=== PATIENT | female | born 1995 | race Caucasian/White ===

== ENCOUNTER 2023-01-09 13:52 | Outpatient (OUT) | payer OTHER, SELFPAY ==
--- NOTE | 2023-01-09 | ECG_ITS ---
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
--- NOTE | 2023-01-09 14:56 | CA_ITS ---
Patient: JUSTIN COON Exam Date: 01/09/2023 : 1995 Gender:F Ordering : DR Dai Judd M.D. Admission #: [id number] Family : Order #: [id number] CLICK HERE TO VIEW EXAM ECHOCARDIOGRAM REPORT PROCEDURE: CA ECHO DOPPLER COMPLETE INDICATIONS: SYNCOPE AND COLLAPSE COMPARISON: None. DESCRIPTION: COMPLETE ECHOCARDIOGRAM Real-time transthoracic echocardiography with 2D, M-mode, spectral and color flow Doppler performed. QUALITY: Technical quality was good. LEFT VENTRICLE: Normal chamber size. Normal left ventricular wall thickness. Normal systolic function. LV EF: Normal left ventricular ejection fraction, (>55%). DIASTOLIC: Normal diastolic function. ATRIAL SEPTUM: Visually appears intact. LEFT ATRIUM: Normal chamber size. RIGHT ATRIUM: Normal chamber size. RIGHT VENTRICLE: Normal chamber size. Normal right ventricular systolic function. TRICUSPID VALVE: Normal mobility and thickness. No stenosis with trivial regurgitation. No evidence of pulmonary hypertension. RVSP 16 mmHg MITRAL VALVE: Normal mobility and thickness. No evidence of mitral valve stenosis. There is no mitral annular calcification. No mitral regurgitation. AORTIC VALVE: Normal trileaflet appearance. No visible sclerosis. Normal leaflet mobility. No evidence of aortic valve stenosis. No aortic regurgitation. AORTIC ROOT: Normal diameter and appearance. PULMONIC VALVE: Normal thickness and mobility. No stenosis. Mild regurgitation. PERICARDIUM: No evidence of pericardial effusion. IVC: Collapses with inspirations. IVC is normal in size. PLEURA: CONCLUSION: 1. Normal ventricular size and systolic function. LVEF is 55 to 60%. 2. Normal diastolic function. 3. No significant valvular dysfunction. 4. Normal right-sided pressures. 5. No pericardial effusion. Adult Echocardiography Procedure Report Left Ventricle LVEDD (3.7 - 5.6 cm): 4.24 cm LVESD (2.2 - 4.0 cm): 3.07 cm LVIVS thickness (0.6 - 1.2 cm): 0.56 cm LVPW thickness (0.5 - 1.0 cm): 0.79 cm e': 0.18 m/s E - e': 6.06 LVOT Max Gradient: 6.28 mm[Hg] LVOT Area (cm2): 1.25 m/s Peak Velocity (LVOT): 1.25 m/s Mean Velocity (LVOT): 0.92 m/s LVOT Diameter 2.12 cm Left Atrium LA Volume Index (2D A2C): 25.34 ml/m2 Left Atrium Systolic Dimension: 3.08 cm Mitral Valve MV E to A Ratio: 1.71 Mitral Valve A-Wave Peak Velocity: 0.64 m/s Mitral Valve E-Wave Peak Velocity: 1.09 m/s Right Ventricle Aorta AO Root Diam: 2.96 cm Ascending Ao Diam: 2.66 cm Aortic Valve AoV Area (Peak Duglas): 3.37 cm2, 3.37 cm2 AoV Area (VTI): 3.22 cm2, 3.22 cm2 Peak Velocity(Antegrade Flow): 1.31 m/s Peak Gradient(Antegrade Flow): 6.86 mm[Hg] Mean Velocity(Antegrade Flow): 0.96 m/s Mean Gradient(Antegrade Flow): 4.12 mm[Hg] Velocity Time Integral: 35.89 cm Tricuspid Valve Peak Velocity (Regurgitant Flow): 1.83 m/s Pulmonic Valve Mean Gradient: 2.86 mm[Hg] Mean Velocity: 0.80 m/s Peak Velocity: 1.07 m/s, 1.15 m/s Peak Gradient: 5.31 mm[Hg], 4.61 mm[Hg] Right Atrium Right Atrium Systolic Pressure: 32.78 ml, 32.78 ml Dictated by: Delvis Denton M.D. on 01/09/2023 at 19:54 Approved by: Delvis Denton M.D. on 01/09/2023 at 19:56
== END 2023-01-09 13:53 | disposition home or self-care (01) ==
LOC: CARD 13:57
PROVIDERS: PCP Family Medicine; Visit Provider Family Medicine
DX: R55 Syncope and collapse (principal)
CPT/HCPCS: 93005; 93306

== ENCOUNTER 2023-02-24 10:19 | Outpatient (OUT) | payer OTHER, SELFPAY ==
[2023-02-24 10:38] LABS: Basophils Percent Auto 0.5 % (0.2-2.0); Eosinophils Absolute Auto 0.1 10^3/uL (0.0-0.7); Eosinophils Percent Auto 1.5 % (0.9-7.0); Hematocrit 37.1 % (36.0-48.0); Immature Granulocytes Abs Auto 0.02 10^3/uL (0.00-0.03); Immature Granulocytes Pct Auto 0.3 % (0.0-0.5); Lymphocytes Absolute Auto 1.8 10^3/uL (1.2-3.8); Lymphocytes Percent Auto 30.2 % (20.5-60.0); Mean Corpuscular HGB Conc 32.3 g/dL (29.9-35.2); Mean Corpuscular Hemoglobin 28.4 pg (26.7-34.0); Mean Corpuscular Volume 87.7 fL (81.0-99.0); Mean Platelet Volume 10.8 fL (9.5-13.5); Monocytes Absolute Auto 0.5 10^3/uL (0.3-0.8); Monocytes Percent Auto 8.3 % (1.7-12.0); Neutrophils Absolute Auto 3.5 10^3/uL (1.4-6.5); Neutrophils Percent Auto 59.2 % (43.0-75.0); Platelet Count 253 10^3/uL (150-450); Red Blood Count 4.23 10^6/uL (4.20-5.40); Red Cell Distribution Width 13.3 % (11.0-15.0); White Blood Count 5.9 10^3/uL (4.0-11.0)
[2023-02-24 11:03] LABS: Percent Iron Saturation 24.8 %
[2023-02-24 11:13] LABS: Anion Gap 12.6; BUN Creatinine Ratio 16.7; Calcium 8.7 mg/dL (8.5-10.1); Carbon Dioxide 26.4 mmol/L (21.0-32.0); Chloride 105 mmol/L (98-107); Estimated GFR (African America >60 (>=60); Estimated GFR (Non-African Ame >60 (>=60); Glucose 86 mg/dL (74-106); Sodium 140 mmol/L (136-145)
== END 2023-02-24 10:20 | disposition home or self-care (01) ==
LOC: LAB 10:20
PROVIDERS: PCP Family Medicine
DX: R55 Syncope and collapse (principal)
CPT/HCPCS: 36415; 80048; 83540; 83550; 85025

== ENCOUNTER 2023-08-04 19:40 | Outpatient (REF) | payer OTHER, SELFPAY ==
--- OUTSIDE RECORDS SUMMARY | 2023-08-04 19:56 | XMS_ITS | CCD ---
Author Organization [facility] Care Team Providers Care Bingo Caller Name Role Phone DEVANTE YUAN Unavailable NOMS, UNKNOWN Unavailable Unavailable INESBAUDILIO Unavailable LEONIDAS SKINNER Unavailable KAYLIE MARSH Unavailable Alyssa Fortune Unavailable Dai Roberson Unavailable NELIA ., DR LAUREN Consulting Unavailable REQUEST, DR NONE LISTED Primary Care Unavaila ble NELIA ., DR LAUREN Attending Unavailable NELIA ., DR LAUREN Admitting Unavailable ZIEBER, DR TRINO Bonilla Consulting Unavailable NELIA ., DR LAUREN Consulting Unavailable ROBERSON, DR DAI Hernandez Primary Care Unavailable NELIA ., DR LAUREN Attending Unavailable NELIA ., DR LAUREN Admitting Unavailable NELIA ., DR LAUREN Consulting Unavailable REQUEST, NONE LISTED Primary Care Unavaila ble NELIA ., DR LAUREN Attending Unavailable NELIA ., DR LAUREN Admitting Unavailable NELIA ., DR LAUREN Consulting Unavailable ROBERSON, DR DAI Hernandez Primary Care Unavailable NELIA ., DR LAUREN Attending Unavailable NELIA ., DR LAUREN Admitting Unavailable SALMA .KAYLIE Consulting Unavailable KAROL, DR DAI Hernandez Primary Care Unavailable SALMA ., KAYLIE Attending Unavailable SALMA ., KAYLIE Admitting Unavailable NELIA ., DR LAUREN Consulting Unavailable ROBERSON, DR DAI Hernandez Primary Care Unavailable NELIA ., DR LAUREN Attending Unavailable NELIA ., DR LAUREN Admitting Unavailable NELIA ., DR LAUREN Consulting Unavailable KISHAN, DR REED Primary Care Unavailable NELIA ., DR LAUREN Attending Unavailable NELIA ., DR LAUREN Admitting Unavailable NELIA ., DR LAUREN Consulting Unavailable MISC, DR REED Primary Care Unavailable NELIA ., DR LAUREN Attending Unavailable NELIA ., DR LAUREN Admitting Unavailable NELIA ., DR LAUREN Consulting Unavailable MISC, DR REED Primary Care Unavailable NELIA ., DR LAUREN Attending Unavailable NELIA ., DR LAUREN Admitting Unavailable NELIA ., DR LAUREN Consulting Unavailable ROBERSON, DR DAI Hernandez Primary Care Unavailable NELIA ., DR LAUREN Attending Unavailable NELIA ., DR LAUREN Admitting Unavailable MICHAEL HAINES Consulting Unavailable NELIA ., DR LAUREN Procedure Practitioner Unavail able KARASIK ., DR MARSH Consulting Unavailabl e ROBERSON, DR DAI Hernandez Primary Care Unavailable NELIA ., DR LAUREN Attending Unavailable NELIA ., DR LAUREN Admitting Unavailable FIREBAUGH, DR GÉNESIS Mckeon Consulting Unavailable NELIA ., DR LAUREN Consulting Unavailable Vel, Maegan Unavailable MD Dai Roberson Primary Care Provider MALCOLM Lentz Attending Provider [phone] Dai Roberson Primary Care Unavailable Vel, Maegan Admitting Unavailable Vel, Maegan Attending Unavailable Vel, Maegan Referring Unavailable Arely Lentz Admitting Unavailable Arely Lentz Attending Unavailable Dai Roberson Primary Care Unavailable Robb Mendoza Admitting Unavailab Robb Estrada Attending Unavailab [facility] Unavailable Allergies Allergy Classification Reported Allergen(s) Allergy Type Date of Onset Reaction(s) Facility (20 sources) Penicillin; Translations: [penicillin] Drug Allergy rash [facility] Repository (14 sources) Penicillin G Drug Allergy [address] [place] [address] (1 source) Penicillin G Potassium Drug [facility] Other (2 sources) Penicillins; Translations: [Penicillins] Allergy to substance [address] [place] [address] (1 source) Penicillin Drug Allergy [address] [place] [address] Repository Medications Current Medications Medication Drug Class(es) Dates Sig (Normalized) Sig (Original) 24 hr amphetamine aspartate 5 mg / amphetamine sulfate 5 mg / dextroamphetamine saccharate 5 mg / dextroamphetamine sulfate 5 mg extended release oral capsule (10 sources) Central Nervous System Stimulant Start: 12-05-2022 take 1 capsule by mouth every twenty-four hours Adderall XR 20 MG 1 capsule in the morning Orally Once a day for 30 days Dec, Active Start: 10-03-2022 take 1 capsule by mo ut every twenty-four hours Adderall XR 20 MG 1 capsule in the morning Orally Once a day for 30 days Sep, Active busPIRone hydrochloride 10 mg oral tablet (3 sources) Start: 07-01-2022 take 1 tablet by mouth every twelve hours busPIRone HCl 10 MG 1 tablet Orally Twice a day for 30 days Jun, Active docusate sodium 100 mg oral capsule (20 sources) Start: 03-01-2021 take 1 capsule by mouth at bedtime Docusate Sodium (Dok) 100 mg Capsule Active 100 MG PO Bedtime March 01, 2021 1:00am Colace Active 21 day ethinyl estradiol 0.104523 mg/hr / etonogestrel 0.005 mg/hr vaginal system (20 sources) Progestin, Estrogen Start: 04-24-2022 NuvaRing 0.12-0.015 MG/24HR [address] for 3 weeks, remove, and replace with a new ring after 7 day break Vaginal for 28 days Apr, Active ibuprofen 800 mg oral tablet (2 sources) Nonsteroidal Anti-inflammatory Drug Start: 06-15-2023 take 800 mg by mouth every eight hours Ibuprofen Active 800 MG PO Q8H 11 10June 15, 2023 12:00am Start: 03-01-2021 take 600 mg by mouth every six hours Ibuprofen Active 600 MG PO Q6H March 01, 2021 1:00am lidocaine 0.05 mg/mg medicated patch (1 source) Antiarrhythmic, Amide Local Anesthetic Start: 06-15-2023 apply 1 dose topically once daily Lidocaine Active 1 PATCH TOPICAL Daily 09 27June 15, 2023 12:00am leave on most painful area for up to 12 hrs predniSONE 10 mg oral tablet (2 sources) Start: 10-29-2022 predniSONE 10 MG 4 tabs po daily x 2 days, 3 tabs daily x 2 days, 2 tabs daily x 2 days, 1 tab daily x 2 days Orally Once a day for 8 Oct, Active sertraline 25 mg oral tablet (20 sources) Serotonin Reuptake Inhibitor take 1 tablet by mouth every twenty-four hours Zoloft 25 MG 1 tablet Orally Once a day Active Completed/Discontinued Medications Medication Drug Class(es) Dates Sig (Normalized) Sig (Original) amoxicillin 875 mg oral tablet (4 sources) Penicillin-class Antibacterial Start: 08-01-2020 take 1 tablet by mouth every twelve hours Amoxicillin 875 MG 1 tablet Orally every 12 hrs for 7 days July, Not-Taking clarithromycin 500 mg oral tablet (4 sources) Macrolide Antimicrobial Start: 05-27-2022 take 1 tablet by mouth every twelve hours Clarithromycin 500 MG 1 tablet Orally every 12 hrs for 10 day(s) May, Not-Taking ethinyl estradiol 0.03 mg / ferrous fumarate 75 mg / norethindrone 1.5 mg oral tablet (4 sources) Estrogen take 1 tablet by mouth every twenty-four hours FE 1.5/30 1.5-30 MG-MCG 1 tablet Orally Once a day Not-Taking fluticasone propionate 0.05 mg/actuat metered dose nasal spray (4 sources) Corticosteroid Start: 05-27-2022 take 1 spray(s) nasal route once daily Fluticasone Propionate 50 MCG/ACT 1 spray in each nostril Nasally Once a day for 21 days May, Not-Taking omeprazole 20 mg delayed release oral capsule (20 sources) Proton Pump Inhibitor take 1 capsule by mouth at bedtime Omeprazole 20 MG 1 capsule Orally bedtime Not-Taking ondansetron 4 mg disintegrating oral tablet (20 sources) Serotonin-3 Receptor Antagonist take 1 tablet by mouth every six hours Ondansetron 4 MG 1 tablet on the tongue and allow to dissolve Orally 6 hours Not-Taking PNV (20 sources) PNV Not-Taking polysaccharide iron complex 391 mg oral capsule (20 sources) take 1 capsule by mouth every twenty-four hours ProFe 391.3 (180 Fe) MG 1 capsule Orally Once a day for 90 days Not-Taking (4 sources) Not-Prateek ing terconazole 8 mg/ml vaginal cream (1 source) Azole Antifungal Start: 01-05-2021 End: 02-26-2021 Terconazole Discontinued 1 APPLICATOR VAGINAL Daily at bedtime January 05, 2021 12:00am February 26, 2021 10:40pm Problems Active Problems Problem Classification Problem Date Documented Date Episodic/Chronic Allergic reactions (1 source) Allergic contact dermatitis due to plants, except food Episodic Anxiety disorders (15 sources) Anxiety; Translations: [Anxiety disorder, unspecified] Chronic Deficiency and other anemia (13 sources) Anemia; Translations: [Anemia, unspecified] Episodic Disorders usually diagnosed in infancy, childhood, or adolescence (13 sources) Adult attention deficit hyperactivity disorder ; Translations: [Other specified behavioral and emotional disorders with onset usually occurring in childhood and adolescence] Chronic E Codes: Fall (1 source) Unspecified fall, initial encounter; Translations: [Unspecified fall] 06-15-2023 Episodic Menstrual disorders (1 source) Irregular menstruation, unspecified; Translations: [IRREGULAR MENSTRUATION UNSPECIFIED] Onset: 08-29-2021 Chronic Mood disorders (13 sources) Dysthymic disorder; Translations: [Persistent depressive disorder] Chronic Other complications of (20 sources) Maternal obesity complicating , childbirth and the puerperium, antepartum; Translations: [Obesity complicating , third trimester] Chronic Other complications of (6 sources) Obesity complicating , third trimester Chronic Other complications of (1 source) Other specified related conditions, first trimester Episodic Other complications of (1 source) related conditions, unspecified, second trimester Episodic Other complications of (12 sources) Supervision of other high risk pregnancies, unspecified trimester Episodic Other complications of (6 sources) related conditions, unspecified, third trimester Episodic Other complications of (6 sources) Excessive weight gain in , third trimester Episodic Other female genital disorders (20 sources) Pain in female genitalia on intercourse; Translations: [Unspecified dyspareunia] Chronic Other female genital disorders (20 sources) Vaginal discharge; Translations: [Other specified noninflammatory disorders of vagina] Episodic Other female genital disorders (1 source) History of past delivery; Translations: [Status post vaginal delivery] 03-01-2021 Episodic Other screening for suspected conditions (not mental disorders or infectious disease) (20 sources) Encounter for screening for malignant neoplasm of cervix; Translations: [Encounter for screening for diabetes mellitus] Onset: 08-22-2021 Episodic Other upper respiratory infections (1 source) Acute pharyngitis, unspecified Episodic Otitis media and related conditions (1 source) Otitis media, unspecified, right ear Episodic Residual codes; unclassified (1 source) 12 weeks gestation of Episodic Residual codes; unclassified (1 source) 20 weeks gestation of Episodic Residual codes; unclassified (1 source) 24 weeks gestation of Episodic Residual codes; unclassified (1 source) 32 weeks gestation of Episodic Residual codes; unclassified (2 sources) 36 weeks gestation of Episodic Residual codes; unclassified (1 source) 37 weeks gestation of Episodic Residual codes; unclassified (1 source) 39 weeks gestation of Episodic Residual codes; unclassified (1 source) 34 weeks gestation of Episodic Residual codes; unclassified (1 source) 15 weeks gestation of Episodic Residual codes; unclassified (1 source) 28 weeks gestation of Episodic Residual codes; unclassified (1 source) 30 weeks gestation of Episodic Superficial injury; contusion (1 source) Contusion of right shoulder, initial encounter; Translations: [Contusion of shoulder region] 06-15-2023 Episodic Unclassified (1 source) CONTACT W/AND (SUSP) EXPOS COVID-19; Translations: [CONTACT W/AND (SUSP) EXPOS COVID-19] Onset: 03-21-2022 Past or Other Problems Problem Classification Problem Date Documented Date Episodic/Chronic Immunizations and screening for infectious disease (20 sources) Exposure to sexually transmissible disorder; Translations: [Contact with and (suspected) exposure to infections with a predominantly sexual mode of transmission] Onset: 08-22-2021 Episodic Other complications of ; puerperium affecting management of mother (1 source) Streptococcus B carrier state complicating childbirth; Translations: [STREP B SALAZAR STATE COMP CHILDBIRTH] Onset: 03-21-2022 Episodic Other complications of (5 sources) Other specified related conditions, third trimester; Translations: [OTH SPEC PREG RELATED COND 3RD TRI] Onset: 02-11-2022 Episodic Other complications of (4 sources) Decreased movements, third trimester, not applicable or unspecified; Translations: [DECR MOVEMENTS 3RD TRI NA/UNS] Onset: 03-02-2022 Episodic Other female genital disorders (6 sources) Other specified noninflammatory disorders of vagina; Translations: [OTH SPEC NONINFLAMMATORY D/O VAGINA] Onset: 09-18-2021 Episodic Other and delivery including normal (20 sources) ; Translations: [Encounter for supervision of normal , unspecified, unspecified trimester] Onset: 11-05-2021 Episodic Residual codes; unclassified (2 sources) 38 weeks gestation of ; Translations: [38 WEEKS GESTATION OF ] Onset: 03-07-2022 Episodic Residual codes; unclassified (2 sources) 40 weeks gestation of ; Translations: [40 WEEKS GESTATION OF ] Onset: 03-21-2022 Episodic Residual codes; unclassified (1 source) Type O blood, Rh negative; Translations: [TYPE O BLOOD RH NEGATIVE] Onset: 03-21-2022 Episodic Residual codes; unclassified (1 source) Unspecified blood type, Rh negative; Translations: [UNSPECIFIED BLOOD TYPE RH NEGATIVE] Onset: 02-13-2022 Episodic Syncope (3 sources) Syncope and collapse; Translations: [Syncope and collapse] Onset: 01-23-2023 Episodic Results Test Name Value Interpretation Reference Range Facility XR shoulder RT min 2V*on XR shoulder RT min 2V* [facility] [place] [address] XRay Report Signed Patient: Malini Degroot MR#: [id number] : 1995 Acct:[id number] Age/Sex: 27 / F ADM Date: 06/15/23 Loc: [facility] Room: Type: [facility] [address] Attending Dr: Arely Lentz APRN Copies to: Arely Lentz APRN Ordering Provider: Arely Lentz APRN Date of Service: 06/15/23 XR/XR shoulder RT min 2V*: RIGHT SHOULDER PAIN 3 views right shoulder plain film HISTORY: Right shoulder injury COMPARISON: None ACUTE FINDINGS: None DEGENERATIVE CHANGE: Unremarkable SOFT TISSUE FINDINGS: Unremarkable JOINT EFFUSION: None POSTOP CHANGES: None BONY MINERALIZATION: Adequate XR/XR shoulder RT min 2V* IMPRESSION: No acute findings. Impression dictated by: Edward Torres M.D.06/15/2023 1:13 PM Dictation Location: [place] [address] Transcribed By: [facility] 06/15/23 1313 Dictated By: Edward Torres DO 06/15/23 1313 Signed By: 06/15/23 1313 [facility] CA cardiac event monitoron 1 04-12-2022 CA cardiac event monitor [facility] [place] [id number] Cardiac Event Monitor Signed Patient: Malini Degroot MR#: [id number] : 1995 Acct:[id number] Age/Sex: 27 / F ADM Date: 01/23/23 Loc: Room: Type: [facility] Attending Dr: Maegan Crowder MD Copies to: Tyson Trejo MD, [facility] Maegan Crowder MD Ordering Provider: Maegan Crowder MD Date of Service: 01/23/23 CA/CA cardiac event monitor: syncope ORDERED BY: Dr. Crowder INDICATION: A 27-year-old patient with syncope. The patient was monitored between 01/23/2023 and 02/05/2023. All tracings revealed normal sinus rhythm, heart rate between 82 and 120 beats per minute. There were no cardiac arrhythmias noted. The patient's diary had symptoms of lightheadedness and dizziness, which did not correlate with significant cardiac arrhythmias. CONCLUSION: A two-week event monitor that revealed sinus rhythm mechanism throughout. No significant cardiac arrhythmias were seen, and the patient's symptoms of dizziness and lighthea dedness did not correlate with cardiac arrhythmias. Transcribed By: NTS 02/10/23 1313 Dictated By: Tyson Trejo MD, [facility] 02/10/23 1039 Signed By: 02/11/23 1322 [facility] Quick Strepon 05-27-2022 S. pyogenes Org specific cx Ql (Throat) Negative [employer] Other Quick Strep [employer] Other CBC AUTO DIFFon 03-13-2022 BASO # 0.0 103/ul Normal 0.0-0.1 [facility] Comment on above: Performed By: #### C BC #### [facility] [address] [place] [address] [address] Evita Carrington Basophils/100 WBC (Bld) 0.3 % Normal 0.2-2.0 [facility] Comment on above: Performed By: #### C BC #### [facility] [address] [place] [address] Dr. Evita Carrington EO # 0.1 103/ul Normal 0.0-0.7 [facility] Comment on above: Performed By: #### C BC #### [facility] [address] [place] [address] Dr. Evita Carrington Eosinophils/100 WBC (Bld) 0.7 % Critically low 0.9-7.0 [facility] Comment on above: Performed By: #### C BC #### [facility] [address] [place] [address] Dr. Evita Carrington Erythrocyte distribution width (RBC) [Ratio] 14.4 % Normal 11.0-15.0 [facility] Comment on above: Performed By: #### C BC #### [facility] [address] [place] [address] Dr. Evita Carrington Hematocrit (Bld) [Volume fraction] 32.5 % Critically low 36.0-48.0 [facility] Comment on above: Performed By: #### C BC #### [facility] [address] [place] [address] Dr. Evita Carrington Hemoglobin (Bld) [Mass/Vol] 10.3 g/dL Critically low 12.0-16.0 [facility] Comment on above: Performed By: #### C BC #### [facility] [address] [place] [address] Dr. Evita Carrington IG # 0.07 10e3/ul Critically high 0.00-0.03 [facility] Comment on above: Performed By: #### C BC #### [facility] [address] [place] [address] Dr. Evita Carrington IG % 0.5 % Normal 0.0-0.5 [facility] Comment on above: Performed By: #### C BC #### [facility] [address] [place] [address] Dr. Evita Carrington LYMPH # 2.0 103/ul Normal 1.2-3.8 [facility] Comment on above: Performed By: #### C BC #### [facility] [address] [place] [address] Dr. Evita Carrington Lymphocytes/100 WBC (Bld) 13.6 % Critically low 20.5-60.0 [facility] Comment on above: Performed By: #### C BC #### [facility] [address] [place] [address] Dr. Eivta Carrington MANUAL DIFF REQ NO Normal [facility] Comment on above: Performed By: #### C BC #### [facility] [address] [place] [address] Dr. Evita Carrington MCH (RBC) [Entitic mass] 25.9 pg Critically low 26.7-34.0 [facility] Comment on above: Performed By: #### C BC #### [facility] [address] [place] [address] Dr. Evita Carrington MCHC (RBC) [Mass/Vol] 31.7 g/dL Normal 29.9-35.2 [facility] Comment on above: Performed By: #### C BC #### [facility] [address] [place] [address] Dr. Evita Carrington MCV (RBC) [Entitic vol] 81.9 fL Normal 81.0-99.0 [facility] Comment on above: Performed By: #### C BC #### [facility] [address] [place] [address] Dr. Evita Carrington MONO # 1.2 103/ul Critically high 0.3-0.8 [facility] Comment on above: Performed By: #### C BC #### [facility] [address] [place] [address] Dr. Evita Carrington Monocytes/100 WBC (Bld) 8.3 % Normal 1.7-12.0 [facility] Comment on above: Performed By: #### C BC #### [facility] [address] [place] [address] Dr. Evita Carrington NEUT # 11.2 103/ul Critically high 1.4-6.5 [facility] Comment on above: Performed By: #### C BC #### [facility] [address] [place] [address] [address] Evita Carrington Neutrophils/100 WBC (Bld) 76.6 % Critically high 43.0-75.0 [facility] Comment on above: Performed By: #### C BC #### [facility] [address] [place] [address] [address] Evita Carrington Platelet mean volume (Bld) [Entitic vol] 10.6 fL Normal 9.5-13.5 [facility] Comment on above: Performed By: #### C BC #### [facility] [address] [place] [address] [address] Evita Carrington PLT 222 103/ul Normal 150-450 [facility] Comment on above: Performed By: #### C BC #### [facility] [address] [place] [address] Dr. Evita Carrington RBC 3.97 106/ul Critically low 4.20-5.40 [facility] Comment on above: Performed By: #### C BC #### [facility] [address] [place] [address] Dr. Evita Carrington WBC 14.5 103/ul Critically high 4.0-11.0 [facility] Comment on above: Performed By: #### C BC #### [facility] [address] [place] [address] Dr. Evita Carrington CBC AUTO DIFFon 03-12-2022 BASO # 0.0 103/ul Normal 0.0-0.1 [facility] Comment on above: Performed By: #### C BC #### [facility] [address] [place] [address] Dr. Evita Carrington Basophils/100 WBC (Bld) 0.3 % Normal 0.2-2.0 [facility] Comment on above: Performed By: #### C BC #### [facility] [address] [place] [address] Dr. Evita Carrington EO # 0.1 103/ul Normal 0.0-0.7 [facility] Comment on above: Performed By: #### C BC #### [facility] [address] [place] [address] [address] Evita Carrington Eosinophils/100 WBC (Bld) 0.9 % Normal 0.9-7.0 [facility] Comment on above: Performed By: #### C BC #### [facility] [address] [place] [address] Dr. Evita Carrington Erythrocyte distribution width (RBC) [Ratio] 14.4 % Normal 11.0-15.0 [facility] Comment on above: Performed By: #### C BC #### [facility] [address] [place] [address] Dr. Evita Carrington Hematocrit (Bld) [Volume fraction] 33.6 % Critically low 36.0-48.0 [facility] Comment on above: Performed By: #### C BC #### [facility] [address] [place] [address] Dr. Evita Carrington Hemoglobin (Bld) [Mass/Vol] 10.8 g/dL Critically low 12.0-16.0 [facility] Comment on above: Performed By: #### C BC #### [facility] [address] [place] [address] Dr. Evita Carrington IG # 0.06 10e3/ul Critically high 0.00-0.03 [facility] Comment on above: Performed By: #### C BC #### [facility] [address] [place] [address] Dr. Evita Carrington IG % 0.6 % Critically high 0.0-0.5 [facility] Comment on above: Performed By: #### C BC #### [facility] [address] [place] [address] Dr. Evita Carrington LYMPH # 2.1 103/ul Normal 1.2-3.8 [facility] Comment on above: Performed By: #### C BC #### [facility] [address] [place] [address] Dr. Evita Carrnigton Lymphocytes/100 WBC (Bld) 21.7 % Normal 20.5-60.0 [facility] Comment on above: Performed By: #### C BC #### [facility] [address] [place] [address] Dr. Evita Carrington MANUAL DIFF REQ NO Normal [facility] Comment on above: Performed By: #### C BC #### [facility] [address] [place] [address] Dr. Evita Carrington MCH (RBC) [Entitic mass] 26.1 pg Critically low 26.7-34.0 [facility] Comment on above: Performed By: #### C BC #### [facility] [address] [place] [address] Dr. Evita Carrington MCHC (RBC) [Mass/Vol] 32.1 g/dL Normal 29.9-35.2 [facility] Comment on above: Performed By: #### C BC #### [facility] [address] [place] [address] Dr. Evita Carrington MCV (RBC) [Entitic vol] 81.2 fL Normal 81.0-99.0 [facility] Comment on above: Performed By: #### C BC #### [facility] [address] [place] [address] Dr. Evita Carrington MONO # 0.7 103/ul Normal 0.3-0.8 [facility] Comment on above: Performed By: #### C BC #### [facility] [address] [place] [address] Dr. Evita Carrington Monocytes/100 WBC (Bld) 6.9 % Normal 1.7-12.0 [facility] Comment on above: Performed By: #### C BC #### [facility] [address] [place] [address] Dr. Evita Carrington NEUT # 6.6 103/ul Critically high 1.4-6.5 [facility] Comment on above: Performed By: #### C BC #### [facility] [address] [place] [address] Dr. Evita Carrington Neutrophils/100 WBC (Bld) 69.6 % Normal 43.0-75.0 [facility] Comment on above: Performed By: #### C BC #### [facility] [address] [address] [address] Evita Carrington Platelet mean volume (Bld) [Entitic vol] 10.6 fL Normal 9.5-13.5 [facility] Comment on above: Performed By: #### C BC #### [facility] [address] [place] [address] Dr. Evita Carrington PLT 255 103/ul Normal 150-450 [facility] Comment on above: Performed By: #### C BC #### [facility] [address] [address] [address] Evita Carrington RBC 4.14 106/ul Critically low 4.20-5.40 [facility] Comment on above: Performed By: #### C BC #### [facility] [address] [place] [address] Dr. Evita Carrington WBC 9.5 103/ul Normal 4.0-11.0 [facility] Comment on above: Performed By: #### C BC #### [facility] [address] [place] [address] Dr. Evita Carrington Covid-19 PCR ([facility])on 02-22 SARS-CoV-2 (COVID-19) RNA MELANY+probe Ql (Unsp spec) Not detected Normal NOT DETECTED [facility] Comment on above: Result Comment: When diagnostic testing is negative, the possibility of a false negative should be considered in the context of a patient's recent exposures and the presence of clinical signs and symptoms consistent with SARS-CoV-2. This test is not yet approved or cleared by the [place] FDA. When there are no FDA-approved or cleared tests available, and other criteria are met, FDA can make tests available under an emergency access mechanism called an Emergency Use Authorization (EUA). The EUA for this test is supported by the [place] of Health and Human Service's declaration that circumstances exist to justify the emergency use of in vitro diagnostics for the detection and/or diagnosis of the virus that causes COVID-19. This EUA will remain in effect for the duration of the COVID-19 declaration justifying emergency of IVDs, unless it is terminated or revoked by the FDA (after which the test may no longer be used). Performed By: #### C VDTBH #### [facility] [address] [place] [address] Dr. Evita Carrington DRUG SCREEN RAPID (URINE)on 03-12-2022 AMP Negative Normal NEGATIVE [facility] Comment on above: Performed By: #### D RUGRPD #### [facility] [address] [place] [address] Dr. Evita Carrington BAR Negative Normal NEGATIVE [facility] Comment on above: Performed By: #### D RUGRPD #### [facility] [address] [place] [address] Dr. Evita Carrington BUP Negative Normal NEGATIVE [facility] Comment on above: Performed By: #### D RUGRPD #### [facility] [address] [place] [address] Dr. Evita Carrington BZO Negative Normal NEGATIVE [facility] Comment on above: Performed By: #### D RUGRPD #### [facility] [address] [place] [address] Dr. Evita Carrington HERSON Negative Normal NEGATIVE [facility] Comment on above: Performed By: #### D RUGRPD #### [facility] [address] [place] [address] Dr. Evita Carrington CUT-OFFS SEE BELOW Normal [facility] Comment on above: Result Comment: AMP (Amphetamine): 500ng/mL, BAR (Barbituates): 200 ng/mL, BZO (Benzodiazepines): 150 ng/mL, BUP (Buprenorphine): 10 ng/mL, HERSON (Cocaine): 150 ng/mL, mAMP (Methamphetamine): 500 ng/mL, MTD (Methadone): 200 ng/mL, OPI (Opiates): 100 ng/mL, OXY (Oxycodone): 100 ng/mL, PCP (Phencyclidine): 25 ng/mL, PPX (Propoxyphene): 300 ng/mL, THC (Cannabinoids): 50 ng/mL, TCA (Trycyclic Antidepressants): 300 ng/mL Performed By: #### D RUGRPD #### [facility] [address] [place] [address] Dr. Evita Carrington DRUG CUT HEADER DRUG CLASS TEST SYSTEM CUT-OFF CONCENTRATIONS ARE FOLLOWS: Normal [facility] Comment on above: Performed By: #### D RUGRPD #### [facility] [address] [place] [address] Dr. Evita Carrington mAMP Negative Normal NEGATIVE [facility] Comment on above: Performed By: #### D RUGRPD #### [facility] [address] [place] [address] Dr. Evita Carrington MTD Negative Normal NEGATIVE [facility] Comment on above: Performed By: #### D RUGRPD #### [facility] [address] [place] [address] Dr. Evita Carrington OPI Negative Normal NEGATIVE [facility] Comment on above: Performed By: #### D RUGRPD #### [facility] [address] [place] [address] Dr. Evita Carrington OXY Negative Normal NEGATIVE [facility] Comment on above: Performed By: #### D RUGRPD #### [facility] [address] [place] [address] Dr. Evita Carrington PCP Negative Normal NEGATIVE [facility] Comment on above: Performed By: #### D RUGRPD #### [facility] [address] [place] [address] Dr. Evita Carrington PPX Negative Normal NEGATIVE [facility] Comment on above: Performed By: #### D RUGRPD #### [facility] [address] [place] [address] Dr. Evita Carrington TCA Negative Normal NEGATIVE [facility] Comment on above: Performed By: #### D RUGRPD #### [facility] [address] [place] [address] Dr. Evita Carrington THC Negative Normal NEGATIVE [facility] Comment on above: Performed By: #### D RUGRPD #### [facility] [address] [place] [address] Dr. Evita Carrington TYPE AND SCREENon 03-12-2022 TYPE AND SCREEN Negative Normal [facility] Comment on above: Performed By: #### C BC #### [facility] [address] [place] [address] Dr. Evita Carrington US PREG BIOPHY W NON STRESSo n 03-04-2022 US PREG BIOPHY W NON STRESS EXAMINATION: US PREG BIOPHY W NON STRESS HISTORY: Reduced movement COMPARISON: No relevant comparison available. TECHNIQUE: Ultrasound biophysical profile was performed in the radiology department. non-reactive stress testing was performed by nursing staff in the birthing center. FINDINGS: BREATHING MOVEMENTS: 2.0 GROSS BODY MOVEMENTS: 2.0 TONE: 2.0 QUALITATIVE AMNIOTIC FLUID VOLUME: 2.0 PRESENTATION: Cephalic HEART RATE: 127.4 bpm H.B./min AMNIOTIC FLUID VOLUME: 13.6 cm cm GESTATIONAL AGE: 38 weeks 5 days CONCLUSION: Total biophysical profile score: 8.0 Electronically authenticated by: GÉNESIS WILDER Date: 2022-03-04 08:27 Normal [facility] CHLAMYDIA/GONOCOCCUS MELANY ( AB/URINE/PAPon 02-16-2022 Chlamydia trachomatis, MELANY Negative Normal Negative [facility] Comment on above: Performed By: #### A FPMAT #### [facility] [address] [place] [address] Dr. Evita Carrington Neisseria gonorrhoeae, MELANY Negative Normal Negative [facility] Comment on above: Performed By: #### A FPMAT #### [facility] [address] [place] [address] Dr. Evita Carrington GROUP B STREP CULTUREon 01-23 S. agalactiae Ag Ql (Unsp spec) Isolate 1 Streptococcus agalactiae Heavy growth of ORGANISM 1 Streptococcus agalactiae ANTIBIOTIC M.I.C RX STATUS Benzylpenicillin <=0.06 S F Ampicillin <=0.25 S F Cefotaxime <=0.12 S F Ceftriaxone <=0.12 S F Levofloxacin 0.5 S F Erythromycin >=8 R F Clindamycin >=1 R F Linezolid <=2 S F Vancomycin 0.5 S F Tetracycline >=16 R F Normal [facility] Comment on above: Performed By: #### G BSCX #### [facility] [address] [place] [address] Dr. Evita Carrington VAGINITIS/VAGINOSIS DNA PROB Yoseph 02-14-2022 Jade species Negative Normal Negative [facility] Comment on above: Performed By: #### C BC #### [facility] [address] [place] [address] Dr. Evita Carrington Gardnerella vaginalis Negative Normal Negative [facility] Comment on above: Performed By: #### C BC #### [facility] [address] [place] [address] Dr. Evita Carrington Trichomonas vaginalis Negative Normal Negative [facility] Comment on above: Performed By: #### C BC #### [facility] [address] [place] [address] Dr. Evita Carrington TYPE AND SCREENon 02-11-2022 TYPE AND SCREEN Negative Normal [facility] Comment on above: Performed By: #### T NS #### [facility] [address] [place] [address] Dr. Evita Carrington GLUCOSE - 1HRon 12-03-2021 Glucose [Mass/Vol] 86 mg/dL Normal 74-106 [facility] Comment on above: Performed By: #### A FPMAT #### [facility] [address] [place] [address] Dr. Evita Carrington HEMOGRAM AND PLATELon 2021 Hematocrit (Bld) [Volume fraction] 32.2 % Critically low 36.0-48.0 [facility] Comment on above: Performed By: #### C BC #### [facility] [address] [place] [address] Dr. Evita Carrington Hemoglobin (Bld) [Mass/Vol] 10.4 g/dL Critically low 12.0-16.0 [facility] Comment on above: Performed By: #### C BC #### [facility] [address] [place] [address] Dr. Evita Carrington MCH (RBC) [Entitic mass] 28.5 pg Normal 26.7-34.0 [facility] Comment on above: Performed By: #### C BC #### [facility] [address] [place] [address] Dr. Evita Carrington MCHC (RBC) [Mass/Vol] 32.3 g/dL Normal 29.9-35.2 [facility] Comment on above: Performed By: #### C BC #### [facility] [address] [place] [address] Dr. Evita Carrington MCV (RBC) [Entitic vol] 88.2 fL Normal 81.0-99.0 [facility] Comment on above: Performed By: #### C BC #### [facility] [address] [place] [address] Dr. Evita Carrington PLT 230 103/ul Normal 150-450 [facility] Comment on above: Performed By: #### C BC #### [facility] [address] [place] [address] Dr. Evita Carrington RBC 3.65 106/ul Critically low 4.20-5.40 [facility] Comment on above: Performed By: #### C BC #### [facility] [address] [place] [address] Dr. Evita Carrington WBC 9.5 103/ul Normal 4.0-11.0 [facility] Comment on above: Performed By: #### C BC #### [facility] [address] [place] [address] Dr. Evita Carrington AFP MATERNAL FOR SPINA BIFID Aon 11-04-2021 AFP MoM 0.86 Normal [facility] Comment on above: Performed By: #### A FPMAT #### [facility] [address] [place] [address] Dr. Evita Carrington AFP Value 57.1 ng/mL Normal [facility] Comment on above: Performed By: #### A FPMAT #### [facility] [address] [place] [address] Dr. Evita Carrington AFP, Serum for Spina Bifida Report Normal [facility] Comment on above: Performed By: #### A FPMAT #### [facility] [address] [place] [address] Dr. Evita Carrington Comment Comment Normal [facility] Comment on above: Result Comment: Barak Correa, Ph.D., [facility] Director . References: Available Upon Request. . Multiples Of Median Cutoffs For AFP Elevations Pablo 2.5 Black 2.8 IDD 2.0 Twins 4.5 Abbreviation Definitions IDD - Insulin Dep Diabetes OSBR - Open Spina Bifida Risk . For further inquiries contact [facility] at [phone]. . This test was developed and its performance characteristics determined by [employer]. It has not been cleared or approved by the Food and Drug Administration. Performed By: #### A FPMAT #### [facility] [address] [place] [address] Dr. Evita Pierce Age Collection Date 21.6 weeks Normal [facility] Comment on above: Performed By: #### A FPMAT #### [facility] [address] [place] [address] Dr. Evita Carrington Gestat, Age Based on LMP Normal [facility] Comment on above: Result Comment: Reca lculations are not recommended when gestational dating by LMP and ultrasound are within 10 days. Performed By: #### A FPMAT #### [facility] [address] [place] [address] Dr. Evita Carrington Insulin Dep Diabetes No Normal [facility] Comment on above: Performed By: #### A FPMAT #### [facility] [address] [place] [address] Dr. Evita Carrington Interpretation Comment Normal [facility] Comment on above: Result Comment: Inte rpretation: Screen Negative . This result is screen negative for OSB. The AFP MoM calculated is based on the gestational age provided. MS-AFP can identify up to 80% of open neural tube defects. Closed neural tube defects and some open defects may not be detected by this test. This test does not screen for Down Syndrome or Trisomy 18. If screening for Down Syndrome or Trisomy 18 is desired, contact [facility] [employer] [facility] to discuss available options. The [place] [employer] recommends amniocentesis be offered to women age 35 and older. Performed By: #### A FPMAT #### [facility] [address] [place] [address] Dr. Evita Carrington [age] Normal [facility] Comment on above: Performed By: #### A FPMAT #### [facility] [address] [address] [address] Evita Carrington Multiple Gestation No Normal [facility] Comment on above: Performed By: #### A FPMAT #### [facility] [address] [address] [address] Evita Carrington [place] [address] Normal [facility] Comment on above: Performed By: #### A FPMAT #### [facility] [address] [address] [address] Evita Carrington PDF . Normal [facility] Comment on above: Performed By: #### A FPMAT #### [facility] [address] [place] [address] Dr. Evita Carrington Race Normal [facility] Comment on above: Performed By: #### A FPMAT #### [facility] [address] [place] [address] Dr. Evita Carrington Test Results: Negative Normal [facility] Comment on above: Performed By: #### A FPMAT #### [facility] [address] [place] [address] Dr. Evita Carrington US PREG ANATOMY SINGLEon US PREG ANATOMY SINGLE EXAMINATION: US PREG ANATOMY SINGLE HISTORY: anatomy study COMPARISON: Ultrasound transvaginal 08/03/2021 TECHNIQUE: Transabdominal sonographic examination was performed for obstetrical and evaluation. FINDINGS: Number: 1 Heart Rate: 146.0 bpm H.B. /min Amniotic Fluid Volume: Subjectively normal Placental Location: POSTERIOR with lower margin 5.6 cm from os Cervix Length: 5.6 cm, closed. ANATOMY: Normal Structures -cerebellum, choroid plexus, cisterna magna, lateral cerebral ventricles, orbits, midline falx, hard palate, four-chamber heart, RVOT, LVOT, stomach, kidneys, bladder, umbilical cord insertion into abdomen, three-vessel cord, cervical spine, thoracic spine, lumbar spine, sacral spine, right upper extremity, left upper extremity, right lower extremity, left lower extremity. SUBOPTIMALLY SEEN: None ABNORMALITIES: None BIOMETRY: BPD: 5.0 cm 21 weeks 0 days HC: 18.5 cm 20 weeks 6 days AC: 15.3 cm 20 weeks 3 days FL: 3.4 cm 20 weeks 5 days EFW:363.7 grams; 54% FL/AC: 22.2 FL/BPD: 68.4 HC/AC: 1.2 GESTATIONAL AGE: Age by EDC: 20 weeks 3 days [place] by EDC: 03/11/2022 Age by current US: 20 weeks 5 days [place] by current US: 03/09/2022 IMPRESSION: 1. Single live intrauterine with growth detailed above. Electronically authenticated by: TRINO CAICEDO Date: 2021-10-25 17:14 Normal [facility] ED PROV NOTEon 10-17-2021 ED PROV NOTE HNO ID: [id number] Author: Gamal Vinson DO Service: Emergency Medicine Author Type: Physician Type: ED Provider Notes Filed: 10/16/2021 11:36 PM Note Text: ED Provider Note Patient Name: Malini Mueller : 1995 SERVICE DATE: 10/16/21 History Patient presents with: Finger Injury: L-ring finger ring stuck. Swelling noted, finger does feel cooler compared to the rest with some purpleto knuckles. Chief complaint / Location: left finger swelling Onset/Duration: 1 hour [employer] Context: Patient presents with swelling of her left ring finger. She got engaged tonight and put on a new ring. She is and states that her fingers are more swollen than usual. Shortly after putting on the ring her finger became more swollen and she is unable get the ring off. Since then she has had increased pain and swelling distal to the ring. She denies any injury. Severity: Mild Associated symptoms: see above Alleviating factors: none Exacerbating factors: none History provided by: Patient No past medical history on file. No past surgical history on file. No family history on file. Social History Tobacco Use - Smoking status: Not on file - Smokeless tobacco: Not on file Substance and Sexual Activity - Alcohol use: Not on file - Drug use: Not on file - Sexual activity: Not on file ALLERGIES Not on File Review of Systems Constitutional: Negative. HENT: Negative for congestion. Eyes: Negative. Respiratory: Negative for cough and shortness of breath. Cardiovascular: Negative. Gastrointestinal: Negative. Genitourinary: Negative. Musculoskeletal: Negative. Negative for arthralgias. Skin: Negative for rash. Neurological: Negative. Psychiatric/Behavior al: Negative. Negative for confusion. All other systems reviewed and are negative. Physical Exam Vitals BP Pulse Temp Temp src Resp SpO2 Weight Height 10/16/21211310/16/21211310/16/212113 -- -- 10/16/21211310/16/212112 -- 126/71 82 36.7 ?C (98.1 ?F) (!) 92 % 77.1 kg (170 lb) Physical Exam Vitals and nursing note reviewed. Constitutional: General: She is not in acute distress. Appearance: She is well-developed. She is not diaphoretic. HENT: Head: Normocephalic. Nose: Nose normal. Eyes: General: Right eye: No discharge. Left eye: No discharge. Conjunctiva/sclera: Conjunctivae normal. Neck: Trachea: No tracheal deviation. Pulmonary: Effort: Pulmonary effort is normal. Abdominal: General: There is no distension. Musculoskeletal: General: No deformity. Hands: Skin: General: Skin is warm and dry. Findings: No rash. Neurological: Mental Status: She is alert. Psychiatric: Behavior: Behavior normal. Diagnostic Testing ED Labs Ordered and Reviewed - No data to display Procedures ED Course / Clinical Impression Clinical Impressions as of 10/16/212335 Finger swelling Ring or other jewelry causing external constriction, initial encounter MDM / Disposition / Plan Patient agreed to have her ring cut off. We do not think we can remove it with nondestructive methods. Ring was cut off and given back to her. She reported improvement in her pain and appears stable for discharge and outpatient follow-up. Disposition The patient was discharged. Counseled patient regarding suspected diagnosis. As well as the need for follow-up. Discharged home with verbal and written instructions. They were instructed to return as needed for persistent or worsening symptoms or any new concerns. Condition at disposition is stable. SIGNATURE: DO Gamal Caceres DO 10/16/212335 Normal [facility] ED NOTEon 10-16-2021 ED NOTE HNO ID: [id number] Author: Kira Dotson, Medic Service: ? Author Type: Director Of Cloud Services and [employer] Application Developer Type: ED Notes Filed: 10/16/2021 10:04 PM Note Text: Per Dr Vinson, OK to remove ring with ring cutter. Procedure took approximately 30 minutes of cutting. Ring removed @ 2200. Dr. Vinson aware. Pt had immediate relief of pain with ring removal. Pt given ice pack for pain relief. Normal [facility] CHLAMYDIA/GONOCOCCUS MELANY (SW AB/URINE/PAPon 09-21-2021 Chlamydia trachomatis, MELANY Negative Normal Negative [facility] Comment on above: Performed By: #### A FPMAT #### [facility] [address] [place] [address] Dr. Evita Carrington Neisseria gonorrhoeae, MELANY Negative Normal Negative [facility] Comment on above: Performed By: #### A FPMAT #### [facility] [address] [place] [address] Dr. Evita Carrington VAGINITIS/VAGINOSIS DNA PROB Yoseph 09-20-2021 Jade species Positive Abnormal Negative [facility] Comment on above: Performed By: #### V AGINT #### [facility] [address] [place] [address] Dr. Evita Carrington Gardnerella vaginalis Negative Normal Negative [facility] Comment on above: Performed By: #### V AGINT #### [facility] [address] [place] [address] Dr. Evita Carrington Trichomonas vaginalis Negative Normal Negative [facility] Comment on above: Performed By: #### V AGINT #### [facility] [address] [place] [address] Dr. Evita Carrington HEP B SURFACE ANTIGEN SCREEN on 08-23-2021 HBsAg Screen Negative Normal Negative [facility] Comment on above: Performed By: #### C BC #### [facility] [address] [place] [address] Dr. Evita Carrington HEPATITIS C VIRUS AB W/ REFL EX QUANTon 08-23-2021 HCV AB <0.1 Normal 0.0-0.9 [facility] Comment on above: Performed By: #### C BC #### [facility] [address] [place] [address] Dr. Evita Carrington Interpretation: Comment Normal [facility] Comment on above: Result Comment: Nega tive Not infected with HCV, unless recent infection is suspected or other evidence exists to indicate HCV infection. Performed By: #### C BC #### [facility] [address] [place] [address] Dr. Evita Carrington HIV 1 AND 2 WITH REFLEXon HIV Screen 4th Generation wRfx Non-Reactive Normal Non Reactive [facility] Comment on above: Result Comment: HIV Negative HIV-1/HIV-2 antibodies and HIV-1 p24 antigen were NOT detected. There is no laboratory evidence of HIV infection. Performed By: #### C BC #### [facility] [address] [place] [address] Dr. Evita Carrington RPR QUANTon 08-23-2021 Rapid Plasma Reagin, Quant Non-Reactive Normal NonRea<1:1 [facility] Comment on above: Result Comment: Plea se Note: This test does not meet current guidelines for screening and diagnosis of syphilis. This test is intended for following treatment response in patients being treated for syphilis infection. To screen for syphilis infection, a reflex cascade that includes both RPR and a treponema-specific assay should be utilized, such as Treponema pallidum (Syphilis) Screening [place] (326609) or Rapid Plasma Reagin (RPR) Test With Reflex to Quantitative RPR and Confirmatory Treponema pallidum Antibodies ([id number]). Performed By: #### R PRQ #### [facility] [address] [place] [address] Dr. Evita Carrington RUBELLA AB IGGon 08-23-2021 Rubella Antibodies, IgG 1.41 index Normal Immune >0.99 [facility] Comment on above: Result Comment: Non- immune <0.90 Equivocal 0.90 - 0.99 Immune >0.99 Performed By: #### A FPMAT #### [facility] [address] [place] [address] Dr. Evita Carrington CBC AUTO DIFFon 08-22-2021 BASO # 0.0 103/ul Normal 0.0-0.1 [facility] Comment on above: Performed By: #### A FPMAT #### [facility] [address] [place] [address] Dr. Evita Carrington Basophils/100 WBC (Bld) 0.4 % Normal 0.2-2.0 [facility] Comment on above: Performed By: #### A FPMAT #### [facility] [address] [place] [address] Dr. Evita Carrington EO # 0.1 103/ul Normal 0.0-0.7 [facility] Comment on above: Performed By: #### A FPMAT #### [facility] [address] [place] [address] Dr. Evita Carrington Eosinophils/100 WBC (Bld) 0.7 % Critically low 0.9-7.0 [facility] Comment on above: Performed By: #### A FPMAT #### [facility] [address] [place] [address] Dr. Evita Carrington Erythrocyte distribution width (RBC) [Ratio] 14.3 % Normal 11.0-15.0 [facility] Comment on above: Performed By: #### A FPMAT #### [facility] [address] [place] [address] Dr. Evita Carrington Hematocrit (Bld) [Volume fraction] 35.4 % Critically low 36.0-48.0 [facility] Comment on above: Performed By: #### A FPMAT #### [facility] [address] [place] [address] Dr. Evita Carrington Hemoglobin (Bld) [Mass/Vol] 11.6 g/dL Critically low 12.0-16.0 [facility] Comment on above: Performed By: #### A FPMAT #### [facility] [address] [place] [address] Dr. Evita Carrington IG # 0.02 10e3/ul Normal 0.00-0.03 [facility] Comment on above: Performed By: #### A FPMAT #### [facility] [address] [place] [address] Dr. Evita Carrington IG % 0.3 % Normal 0.0-0.5 [facility] Comment on above: Performed By: #### A FPMAT #### [facility] [address] [address] [address] Evita Carrington LYMPH # 1.7 103/ul Normal 1.2-3.8 [facility] Comment on above: Performed By: #### A FPMAT #### [facility] [address] [address] [address] Evita Carrington Lymphocytes/100 WBC (Bld) 24.1 % Normal 20.5-60.0 [facility] Comment on above: Performed By: #### A FPMAT #### [facility] [address] [address] [address] Evita Carrington MANUAL DIFF REQ NO Normal [facility] Comment on above: Performed By: #### A FPMAT #### [facility] [address] [place] [address] Dr. Evita Carrington MCH (RBC) [Entitic mass] 27.6 pg Normal 26.7-34.0 [facility] Comment on above: Performed By: #### A FPMAT #### [facility] [address] [address] [address] Evita Carrington MCHC (RBC) [Mass/Vol] 32.8 g/dL Normal 29.9-35.2 [facility] Comment on above: Performed By: #### A FPMAT #### [facility] [address] [place] [address] Dr. Evita Carrington MCV (RBC) [Entitic vol] 84.3 fL Normal 81.0-99.0 [facility] Comment on above: Performed By: #### A FPMAT #### [facility] [address] [address] [address] Evita Carrington MONO # 0.4 103/ul Normal 0.3-0.8 [facility] Comment on above: Performed By: #### A FPMAT #### [facility] [address] [address] [address] Evita Carrington Monocytes/100 WBC (Bld) 5.9 % Normal 1.7-12.0 [facility] Comment on above: Performed By: #### A FPMAT #### [facility] [address] [place] [address] Dr. Evita Carrington NEUT # 4.7 103/ul Normal 1.4-6.5 [facility] Comment on above: Performed By: #### A FPMAT #### [facility] [address] [place] [address] Dr. Evita Carrington Neutrophils/100 WBC (Bld) 68.6 % Normal 43.0-75.0 [facility] Comment on above: Performed By: #### A FPMAT #### [facility] [address] [place] [address] Dr. Evita Carrington Platelet mean volume (Bld) [Entitic vol] 10.6 fL Normal 9.5-13.5 [facility] Comment on above: Performed By: #### A FPMAT #### [facility] [address] [place] [address] Dr. Evita Carrington PLT 268 103/ul Normal 150-450 [facility] Comment on above: Performed By: #### A FPMAT #### [facility] [address] [place] [address] Dr. Evita Carrington RBC 4.20 106/ul Normal 4.20-5.40 [facility] Comment on above: Performed By: #### A FPMAT #### [facility] [address] [place] [address] Dr. Evita Carrington WBC 6.9 103/ul Normal 4.0-11.0 [facility] Comment on above: Performed By: #### A FPMAT #### [facility] [address] [place] [address] Dr. Evita Carrington CULTURE URINEon 08-22-2021 CULTURE URINE Culture Observations: LIGHT GROWTH OF MIXED GENITAL DONALD. NO POTENTIAL PATHOGENS SEEN. Normal [facility] Comment on above: Performed By: #### C BC #### [facility] [address] [place] [address] Dr. Evita Carrington GLYCOHEMOGLOBIN A1Con 2021 ADA RECOMMENDATION SEE BELOW Normal [facility] Comment on above: Result Comment: ADA RECOMMENDED LIMIT 4.0 - 6.0 ADA THERAPEUTIC TARGET < 7.0 ACTION SUGGESTED > 7.0 Performed By: #### A FPMAT #### [facility] [address] [place] [address] Dr. Evita Carrington Glucose [Mass/Vol] 103 mg/dL Normal [facility] Comment on above: Performed By: #### A FPMAT #### [facility] [address] [place] [address] Dr. Evita Carrington HbA1c (Bld) [Mass fraction] 5.2 % Normal 4.5-6.2 [facility] Comment on above: Performed By: #### A FPMAT #### [facility] [address] [place] [address] Dr. Evita Carrington LORAINE BOX TEST PT SEND OUTo n 08-22-2021 SENT TO REF LAB 08/22/2021 Normal [facility] Comment on above: Performed By: #### C BC #### [facility] [address] [place] [address] Dr. Evita Carrington TYPE AND SCREENon 08-22-2021 TYPE AND SCREEN Negative Normal [facility] Comment on above: Performed By: #### T NS #### [facility] [address] [place] [address] Dr. Evita Carrington Vital Signs Date Time Vital Sign Value Performing Clinician Facility 06-15-2023 10:390400 Body height 167.64 cm MD Dai Roberson Work Phone[facility] 06-15-2023 10:39-0400 Body mass index (BMI) [Ratio] 26.6 kg/m2 MD Dai Roberson Work Phone: [facility] 06-15-2023 10:39-0400 Body temperature 97.5 [degF] MD Dai Roberson Work Phone: [facility] 06-15-2023 10:39-0400 Body weight 74.95 kg MD Dai Roberson Work Phone: [facility] 06-15-2023 10:39-0400 Diastolic blood pressure 69 mm[Hg] MD Dai Roberson Work Phone: [facility] 06-15-2023 10:39-0400 Heart rate 55 /min MD Dai Roberson Work Phone: [facility] 06-15-2023 10:39-0400 Respiratory rate 16 /min MD Dai Roberson Work Phone: [facility] 06-15-2023 10:39-0400 SaO2% (BldA) [Mass fraction] 99 % MD Dai Roberson Work Phone: [facility] 06-15-2023 10:39-0400 Systolic blood pressure 116 mm[Hg] MD Dai Roberson Work Phone: [facility] 01-08-2023 13:40-0400 Body height 167.64 cm Maegan Crowder Other [facility] Other 01-08-2023 13:40-0400 Body mass index (BMI) [Ratio] 27.27 kg/m2 Maegan Sharmaoroge Other [facility] Other 01-08-2023 13:40-0400 Body weight 76.66 kg Maegan Vel Other [facility] Other 01-08-2023 13:40-0400 Diastolic blood pressure 78 mm[Hg] Maegan Vel Other [facility] Other 01-08-2023 13:40-0400 SaO2% (BldA) [Mass fraction] 98 % Maegan Vel Other [facility] Other 01-08-2023 13:40-0400 Systolic blood pressure 122 mm[Hg] Maegan Vel Other [facility] Other 12-27-2022 10:45-0400 Body height 167.64 cm Dai Roberson Other [facility] Other 12-27-2022 10:45-0400 Body mass index (BMI) [Ratio] 27.27 kg/m2 Dai Roberson Other [facility] Other 12-27-2022 10:45-0400 Body weight 76.66 kg Dai Roberson Other [facility] Other 12-27-2022 10:45-0400 Diastolic blood pressure 64 mm[Hg] Dai Roberson Other [facility] Other 12-27-2022 10:45-0400 Systolic blood pressure 109 mm[Hg] Dai Roberson Other [facility] Other 10-29-2022 14:45-0400 Body height 167.64 cm Dai Roberson Other [facility] Other 10-29-2022 14:45-0400 Body mass index (BMI) [Ratio] 31.63 kg/m2 Dai Roberson Other [facility] Other 10-29-2022 14:45-0400 Body weight 88.91 kg Dai Roberson Other [facility] Other 10-29-2022 14:45-0400 Diastolic blood pressure 75 mm[Hg] Dai Roberson Other [facility] Other 10-29-2022 14:45-0400 Systolic blood pressure 111 mm[Hg] Dai Roberson Other [facility] Other 10-03-2022 14:30-0400 Body height 167.64 cm Dai Roberson Other [facility] Other 10-03-2022 14:30-0400 Body mass index (BMI) [Ratio] 29.53 kg/m2 Dai Roberson Other [facility] Other 10-03-2022 14:30-0400 Body weight 83.01 kg Dai Roberson Other [facility] Other 10-03-2022 14:30-0400 Diastolic blood pressure 58 mm[Hg] Dai Roberson Other [facility] Other 10-03-2022 14:30-0400 SaO2% (BldA) [Mass fraction] 98 % Dai Roberson Other [facility] Other 10-03-2022 14:30-0400 Systolic blood pressure 106 mm[Hg] Dai Roberson Other [facility] Other 07-01-2022 12:45-0400 Body height 167.64 cm Dai Roberson Other [facility] Other 07-01-2022 12:45-0400 Body mass index (BMI) [Ratio] 30.18 kg/m2 Dai Roberson Other [facility] Other 07-01-2022 12:45-0400 Body weight 84.82 kg Dai Roberson Other [facility] Other 07-01-2022 12:45-0400 Diastolic blood pressure 70 mm[Hg] Dai Roberson Other [facility] Other 07-01-2022 12:45-0400 SaO2% (BldA) [Mass fraction] 97 % Dai Roberson Other [facility] Other 07-01-2022 12:45-0400 Systolic blood pressure 116 mm[Hg] Dai Roberson Other [facility] Other 05-27-2022 14:10-0500 Body height 167.64 cm Alyssa Fortune Other [facility] Other 05-27-2022 14:10-0500 Body mass index (BMI) [Ratio] 30.66 kg/m2 Alyssa Fortune Other [facility] Other 05-27-2022 14:10-0500 Body temperature 98.9 [degF] Alyssa Fortune Other [facility] Other 05-27-2022 14:10-0500 Body weight 86.18 kg Alyssa Fortune Other [facility] Other 05-27-2022 14:10-0500 Diastolic blood pressure 61 mm[Hg] Alyssa Fortune Other [facility] Other 05-27-2022 14:10-0500 Respiratory rate 18 /min Alyssa Fortune Other [facility] Other 05-27-2022 14:10-0500 SaO2% (BldA) [Mass fraction] 98 % Alyssa Fortune Other [facility] Other 05-27-2022 14:10-0500 Systolic blood pressure 117 mm[Hg] Alyssa Fortune Other [facility] Other 04-24-2022 11:10-0500 Body height 173.99 cm LEONIDAS NELIA Other [facility] Other 04-24-2022 11:10-0500 Body mass index (BMI) [Ratio] 29.78 kg/m2 LEONIDAS NELIA Other [facility] Other 04-24-2022 11:10-0500 Body weight 90.18 kg LEONIDAS NELIA Other [facility] Other 04-24-2022 11:10-0500 Body weight 90.17 kg LEONIDAS NELIA Other [facility] Other 04-24-2022 11:10-0500 Diastolic blood pressure 70 mm[Hg] LEONIDAS NELIA Other [facility] Other 04-24-2022 11:10-0500 Systolic blood pressure 120 mm[Hg] LEONIDAS NELIA Other [facility] Other 03-06-2022 12:00-0500 Body height 173.99 cm LEONIDAS NELIA Other [facility] Other 03-06-2022 12:00-0500 Body mass index (BMI) [Ratio] 32.57 kg/m2 LEONIDAS NELIA Other [facility] Other 03-06-2022 12:00-0500 Body weight 98.61 kg LEONIDAS NELIA Other [facility] Other 03-06-2022 12:00-0500 Diastolic blood pressure 74 mm[Hg] LEONIDAS NELIA Other [facility] Other 03-06-2022 12:00-0500 Systolic blood pressure 100 mm[Hg] LEONIDAS NELIA Other [facility] Other 02-26-2022 15:10-0500 Body height 173.99 cm LEONIDAS NELIA Other [facility] Other 02-26-2022 15:10-0500 Body mass index (BMI) [Ratio] 32.33 kg/m2 LEONIDAS NELIA Other [facility] Other 02-26-2022 15:10-0500 Body weight 97.89 kg LEONIDAS NELIA Other [facility] Other 02-26-2022 15:10-0500 Diastolic blood pressure 78 mm[Hg] LEONIDAS NELIA Other [facility] Other 02-26-2022 15:10-0500 Systolic blood pressure 116 mm[Hg] LEONIDAS NELIA Other [facility] Other 02-19-2022 11:00-0500 Body height 173.99 cm KAYLIE MARSH Other [facility] Other 02-19-2022 11:00-0500 Body mass index (BMI) [Ratio] 31.91 kg/m2 KAYLIE MARSH Other [facility] Other 02-19-2022 11:00-0500 Body weight 96.62 kg KAYLIE MARSH Other [facility] Other 02-19-2022 11:00-0500 Diastolic blood pressure 72 mm[Hg] KAYLIE MARSH Other [facility] Other 02-19-2022 11:00-0500 Systolic blood pressure 120 mm[Hg] KAYLIE MARSH Other [facility] Other 02-12-2022 11:00-0500 Body height 173.99 cm LEONIDAS SKINNER Other [facility] Other 02-12-2022 11:00-0500 Body mass index (BMI) [Ratio] 32.03 kg/m2 LEONIDAS NELIA Other [facility] Other 02-12-2022 11:00-0500 Body weight 96.98 kg LEONIDAS NELIA Other [facility] Other 02-12-2022 11:00-0500 Diastolic blood pressure 84 mm[Hg] LEONIDAS NELIA Other [facility] Other 02-12-2022 11:00-0500 Systolic blood pressure 120 mm[Hg] LEONIDAS NELIA Other [facility] Other 11-04-2021 02:06-0400 Body weight 81.[address] LEONIDAS SKINNER . [facility] Comment on above: Performed By: #### AFPMAT #### [facility] [address] [place] [address] Dr. Evita Carrington 03-29-2021 14:15-0500 Body height 173.99 cm DEVANTE VISCI Other [facility] Other 03-29-2021 14:15-0500 Body mass index (BMI) [Ratio] 26.61 kg/m2 DEVANTE RICKSI Other [facility] Other 03-29-2021 14:15-0500 Body weight 80.56 kg DEVANTE RICKSI Other [facility] Other 03-29-2021 14:15-0500 Diastolic blood pressure 78 mm[Hg] DEVANTE VISCI Other [facility] Other 03-29-2021 14:15-0500 Systolic blood pressure 120 mm[Hg] DEVANTE RICKSI Other [facility] Other Encounters Encounter Date Encounter Type Care Provider Facility Start: 06-15-2023 End: 06-15-2023 ambulatory Arely Lentz [facility] Start: 06-15-2023 End: 06-15-2023 ambulatory MD Dai Roberson Work Phone: [facility] Work Phone: Start: 06-15-2023 End: 06-15-2023 Patient encounter procedure MD Dai Roberson Work Phone: [facility] Work Phone: Start: 03-05-2023 End: 03-05-2023 ambulatory Maegan Crowder Other [facility] Other Start: 03-05-2023 Telephone encounter Maegan Crowder [facility] Start: 01-23-2023 End: 01-23-2023 ambulatory Dai Roberson Facility:[facility] Start: 01-22-2023 End: 01-22-2023 ambulatory Maegan Crowder Other [facility] Other Start: 01-22-2023 Telephone encounter Maegan Sharmajovanni [facility] Start: 01-09-2023 End: 01-09-2023 ambulatory Maegan Crowder Other [facility] Other Start: 01-09-2023 Telephone encounter Maegan Sharmaoroge [facility] [employer] Start: 01-08-2023 End: 01-08-2023 ambulatory Maegan Crowder Other [facility] Other Start: 01-08-2023 Office outpatient ne w 30 minutes Maegan Vel [facility] Start: 01-08-2023 Telephone encounter Dai Roberson [facility] Start: 12-27-2022 End: 12-27-2022 ambulatory Dai Roberson Other [facility] Other Start: 12-27-2022 Office outpatient visit 15 minutes Dai Roberson [facility] Start: 12-05-2022 End: 12-05-2022 ambulatory Dai Roberson Other [facility] Other Start: 12-05-2022 Telephone encounter Dai Roberson [facility] Start: 10-29-2022 End: 10-29-2022 ambulatory Dai Roberson Other [facility] Other Start: 10-29-2022 Office outpatient visit 15 minutes Dai Roberson [facility] Start: 10-03-2022 End: 10-03-2022 ambulatory Dai Roberson Other [facility] Other Start: 10-03-2022 Office outpatient visit 15 minutes Dai Roberson [facility] Start: 08-15-2022 End: 08-15-2022 ambulatory Dai Roberson Other [facility] Other Start: 08-15-2022 Telephone encounter Dai Roberson [facility] [employer] Start: 08-09-2022 ambulatory Robb Mcnamara acility:[facility] Start: 08-01-2022 End: 08-01-2022 ambulatory KAYLIE SALMA . Facility:[facility] Start: 07-25-2022 End: 07-25-2022 ambulatory Dai Karol Other [facility] Other Start: 07-25-2022 Telephone encounter Dai Roberson [facility] Start: 07-01-2022 End: 07-01-2022 ambulatory Dai Roberson Other [facility] Other Start: 07-01-2022 Office outpatient visit 15 minutes Dai Roberson [facility] Start: 05-27-2022 End: 05-27-2022 ambulatory Alyssa Fortune Other [facility] Other Start: 05-27-2022 Office outpatient visit 15 minutes Alyssa Fortune [facility] Start: 04-24-2022 (PP) Post Visit LEONIDAS Seth [address] Start: 04-24-2022 End: 04-24-2022 ambulatory LEONIDAS SKINNER Other [facility] Other Start: 03-12-2022 End: 03-13-2022 Evaluation and management of inpatient DR LEONIDAS SKINNER . Facility:[facility] Start: 03-06-2022 ([facility]) [facility] LEONIDAS Seth 1 02 C Start: 03-06-2022 End: 03-06-2022 ambulatory LEONIDAS SKINNER Other [facility] Other Start: 03-02-2022 End: 03-02-[address] MAXIMO RUANO . Facility:[facility] Start: 02-26-2022 ([facility]) [facility] LEONIDAS Seth 1 02 C Start: 02-26-2022 End: 02-26-2022 ambulatory LEONIDAS SKINNER Other [facility] Other Start: 02-19-2022 ([facility]) [facility] KAYLIE MARSH [place] 1 02 C Start: 02-19-2022 End: 02-19-2022 ambulatory KAYLIE MARSH Other [facility] Other Start: 02-12-2022 ([facility]) [facility] LEONIDAS Radfordue 1 02 C Start: 02-12-2022 End: 02-12-[address] LEONIDAS SKINNER . [facility] Other Start: 02-11-2022 End: 02-12-[address] LEONIDAS SKINNER . Facility:[facility] Start: 01-31-2022 End: 01-31-2022 ambulatory LEONIDAS SKINNER Other [facility] Other Start: 01-31-2022 Telephone encounter LEONIDAS cidue [address] Start: 12-03-2021 End: 12-04-[address] LEONIDAS SKINNER . Facility:[facility] Start: 11-02-2021 End: 11-03-[address] LEONIDAS SKINNER . Facility:[facility] Start: 10-25-2021 End: 10-26-[address] LEONIDAS SKINNER . Facility:[facility] Start: 09-18-2021 End: 09-18-[address] LEONIDAS SKINNER . Facility:[facility] Start: 08-22-2021 End: 08-23-[address] LEONIDAS SKINNER . Facility:[facility] Start: 03-29-2021 (PP) Post Visit DEVANTE Mcgovern [address] Start: 03-29-2021 End: 03-29-2021 ambulatory DEVANTE YUAN Other [facility] Other Start: 03-07-2021 End: 03-07-2021 ambulatory DEVANTE RICKSI Other [facility] Other Start: 03-07-2021 Telephone encounter DEVANTE YUAN [facility] Start: 02-27-2021 (PROC) Procedure DEVANTE YUAN [facility] Start: 02-27-2021 End: 02-27-2021 ambulatory DEVANTE RICKSI Other [facility] Other Start: 02-26-2021 ([facility]) PN DEVANTE RICKSI [place] [address] Start: 02-26-2021 End: 02-26-2021 ambulatory UNKNOWN [facility] Start: 02-26-2021 Encounter by janelle calero UNKNOWN [facility] [place] [address] Start: 02-19-2021 ([facility]) [facility] DEVANTE RICKSI [place] [address] Start: 02-19-2021 End: 02-19-2021 ambulatory DEVANTE RICKSI Other [facility] Other Start: 02-12-2021 (PN) [facility] DEVANTE RICKSI [place] [address] Start: 02-12-2021 End: 02-12-2021 ambulatory DEVANTE RICKSI Other [facility] Other Start: 02-05-2021 (PN) [facility] DEVANTE RICKSI [place] [address] Start: 02-05-2021 End: 02-05-2021 ambulatory DEVANTE RICKSI Other [facility] Other Start: 01-29-2021 (PN) [facility] DEVANTE RICKSI [place] [address] Start: 01-29-2021 End: 01-29-2021 ambulatory DEVANTE VISCI Other [facility] Other Start: 01-24-2021 (OB over 14) OB over 14 weeks DEVANTE RAMBOI [place] [address] Start: 01-24-2021 ([facility]) [facility] DEVANTE VISCI [place] [address] Start: 01-24-2021 End: 01-24-2021 ambulatory DEVANTE VISCI Other [facility] Other Start: 01-15-2021 ([facility]) [facility] BAUDILIO CHACON [place] [address] 210 Start: 01-15-2021 End: 01-15-2021 ambulatory BAUDILIO CHACON Other [facility] Other Start: 01-08-2021 End: 01-08-2021 ambulatory DEVANTE VISCI Other [facility] Other Start: 01-08-2021 Telephone encounter DEVANTE VISCI [place] [address] Start: 01-05-2021 End: 01-05-2021 ambulatory DEVANTE VISCI Other [facility] Other Start: 01-05-2021 Telephone encounter DEVANTE VISCI [place] [address] Start: 01-01-2021 ([facility]) [facility] DEVANTE VISCI [place] [address] Start: 01-01-2021 End: 01-01-2021 ambulatory DEVANTE VISCI Other [facility] Other Start: 12-18-2020 ([facility]) [facility] DEVANTE VISCI [place] [address] Start: 12-18-2020 End: 12-18-2020 ambulatory DEVANTE VISCI Other [facility] Other Start: 12-04-2020 ([facility]) [facility] DEVANTE VISCI [place] [address] Start: 12-04-2020 End: 12-04-2020 ambulatory DEVANTE VISCI Other [facility] Other Start: 11-28-2020 End: 11-28-2020 ambulatory DEVANTE VISCI Other [facility] Other Start: 11-28-2020 Telephone encounter DEVANTE RICKSI [place] [address] Start: 11-23-2020 End: 11-23-2020 ambulatory DEVANTE VISCI Other [facility] Other Start: 11-23-2020 Telephone encounter DEVANTE RAMBOI [place] [address] Start: 11-06-2020 (PNC) PN DEVANTE VISCI [place] [address] Start: 11-06-2020 End: 11-06-2020 ambulatory DEVANTE VISCI Other [facility] Other Start: 10-29-2020 End: 10-29-2020 ambulatory DEVANTE VISCI Other [facility] ([facility] Other Start: 10-29-2020 Encounter by compute r link DEVANTE RICKSI [place] [address] Start: 10-09-2020 (OB over 14) OB over 14 weeks DEVANTE VISCI [place] [address] 210 Start: 10-09-2020 ([facility]) [facility] DEVANTE VISCI [place] 2500 210 Start: 10-09-2020 End: 10-09-2020 ambulatory DEVANTE VISCI Other [facility] ([facility]) Other Start: 10-06-2020 End: 10-06-2020 ambulatory UNKNOWN [facility] Start: 10-06-2020 Encounter by compute r link UNKNOWN [facility] [place] 2500 210 Start: 09-20-2020 End: 09-20-2020 ambulatory DEVANTE VISCI Other [facility] ([facility]) Other Start: 09-20-2020 Telephone encounter DEVANTE VISCI [place] [address] 210 Start: 09-04-2020 ([facility]) [facility] DEVANTE VISCI [place] 2500 210 Start: 09-04-2020 End: 09-04-2020 ambulatory DEVANTE YUAN Other [facility] ([facility]) Other Start: 08-11-2020 (OB over 14) OB over 14 weeks DEVANTE YUAN [place] 2500 210 Start: 08-11-2020 End: 08-11-2020 ambulatory DEVANTE YUAN Other [facility] ([facility]) Other Start: 08-01-2020 End: 08-01-2020 ambulatory UNKNOWN [facility] Start: 08-01-2020 Encounter by compute r link UNKNOWN [facility] [place] [address] 210 Start: 07-04-2020 End: 07-04-2020 ambulatory UNKNOWN [facility] Start: 07-04-2020 Encounter by compute r link UNKNOWN [facility] [place] 2500 210 Start: 07-04-2020 Telephone encounter DEVANTE YUAN [place] [address] 210 Start: 06-26-2020 End: 06-26-2020 ambulatory DEVANTE YUAN Other [facility] ([facility]) Other Start: 06-26-2020 Telephone encounter DEVANTE YUAN [place] [address] 210 Procedures Date Procedure Procedure Detail Performing Clinician Start: 06-15-2023 Plain X-ray of right shoulder MD Dai Roberson Work Phone: Start: 03-12-2022 Delivery of Products of Conception, External Approach DR LEONIDAS SKINNER . Start: 03-12-2022 Drainage of Amniotic Fluid, Therapeutic from Products of Conception, Via Natural or Artificial Opening DR LEONIDAS SKINNER . Start: 03-12-2022 Introduction of Othe r Hormone into Peripheral Vein, Percutaneous Approach DR LEONIDAS SKINNER . Plan of Treatment Date Care Activity Detail Author XR Shoulder - right Views [facility] Immunizations Immunization Date Immunization Notes Care Provider Fa cility NEGATED: Highlighted row has not occurred!02-27-2021 tetanus toxoid, reduced diphtheria toxoid, and acellular pertussis vaccine, adsorbed MD Dai Roberson Work Phone: [facility] Payers Date Payer Category Payer Private Health Insurance [id number] 2022 Self-pay [id number] 1995 Unknown [id number] 2.16.840.1.272443.3.579.2. 593 1995 Unknown [id number] 2.16.840.1.677180.3.579.2. 593 1995 Unknown [id number] 2.16.840.1.732021.3.579.2. 593 1995 Unknown [id number] 2.16.840.1.562687.3.579.2. 593 1995 Unknown [id number] 2.16.840.1.580859.3.579.2. 593 1995 Unknown [id number] 2.16.840.1.656758.3.579.2. 593 1995 Unknown [id number] 2.16.840.1.342919.3.579.2. 593 1995 Unknown [id number] 2.16.840.1.535128.3.579.2. 593 1995 Unknown [id number] 2.16.840.1.208395.3.579.2. 593 1995 Unknown [id number] 2.16.840.1.408228.3.579.2. 593 1959 Self-pay [id number] 1959 Unknown [id number] 2.16.840.1.980113.19 1959 Unknown [id number] Private Health Insurance [facility] [id number] Unknown [id number] 2.16.840.1.613769.3.579.2. 593 Unknown [id number] 2.16.840.1.010513.3.579.2. 531 Unknown [id number] 2.16.840.1.418285.3.579.2. 531 Unknown [id number] 2.16.840.1.795189.3.579.2. 531 Social History Date Type Detail Facility Unknown if ever smoked [facility] ([facility]) Sex Assigned At Sex Assigned At Bir th [facility] ([facility]) Start: 06-15-2023 Tobacco smoking stat us [facility] Never smoked tobacco (finding) [facility] Start: 1995 Sex Assigned At Female F [facility] Clinical Notes 07-04-2020 to 01-08-2023 Note Date & Type Note Facility 01-08-2023 Evaluation note Encounter Date Diagnosis Assessment Notes Dec, Syncope and collapse (ICD-10 - R55) Ms Degroot is a 27 year old female with PMH significant for generalized anxiety who presents to the office as a referral from Dr. Dai Roberson for syncope and collapse. Assessment: Syncope-possibly vasovagal.Palpitati ons Plan: -Echo scheduled for tomorrow to evaluate valvular function as well as LV function.-2-week event monitor to rule out cardiac arrhythmias.-Tilt table testing to evaluate for orthostasis and cardioinhibitory syncope-Will follow-up in 4 weeks. [facility] Other 10-18-2023 Evaluation note* Encounter Date Diagnosis Assessment Notes Treatment Notes Treatment Clinical Notes Dec, Adult attention deficit disorder (ICD-10 - F98.8) [facility] Other 10-06-2023 Evaluation note* Encounter Date Diagnosis Assessment Notes Treatment Notes Treatment Clinical Notes Dec, Syncope and collapse (ICD-10 - R55) Malini denies recent illness and symptoms c/w vertigo. Doubts possiblity of dehydration. 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 Malini agrees to referral to Cardiology and echo. She is feeling ok today, just mildly tired from being up in the night. Malini understands to go to ER/call EMS if symptoms recur. [facility] Other 09-14-2023 Evaluation note* Encounter Date Diagnosis Assessment Notes Treatment Notes Treatment Clinical Notes Nov, Adult attention deficit disorder (ICD-10 - F98.8) [facility] Other 08-08-2023 Evaluation note* Encounter Date Diagnosis Assessment Notes Treatment Notes Treatment Clinical Notes Oct, Poison herminio dermatitis (ICD-10 - L23.7) Take medications as directed. Complete all doses. Wash all belongings that came in contact with plant oils. May continue to use Calamine lotion. Patient verbalized understanding and agreement with treatment plan. [facility] Other 07-13-2023 Evaluation note* Encounter Date Diagnosis Assessment Notes Treatment Notes Treatment Clinical Notes Sep, Anxiety (ICD-10 - F41.9) notes adverse side effects w ssris and buspar. d/c medication. Sep, Adult attention deficit disorder (ICD-10 - F98.8) Watch for possible use of med for alertness rather than concentration; consider attempt at reduction after a few months. Call if problem. [facility] Other 05-04-2023 Evaluation note* Encounter Date Diagnosis Assessment Notes Treatment Notes Treatment Clinical Notes July, Persistent depressive disorder (ICD-10 - F34.1) [facility] Other 04-10-2023 Evaluation note* Encounter Date Diagnosis Assessment Notes Treatment Notes Treatment Clinical Notes Jun, Anxiety (ICD-10 - F41.9) Stop Zoloft start BuSpar. Patient does seem to be in normal mood presently question if medication needed at all. She will trial this and see if it is helpful . if she has significant side effects etc. she will likely just discontinue medication. [facility] Other 03-06-2023 Evaluation note* Encounter Date Diagnosis Assessment Notes Treatment Notes Treatment Clinical Notes May, Sore throat (ICD-10 - J02.9) May, Right acute otitis media (ICD-10 - H66.91) Ear infections are often a secondary infection caused from an URI, the flu or allergies. Take medication as directed. Complete all doses, even if you feel better. Tylenol or ibuprofen can help with pain. Warm pack to area for comfort helps as well. Follow up with primary care provider if no improvement of symptoms. [facility] Other 02-01-2023 Evaluation note* Encounter Date Diagnosis Assessment Notes Treatment Notes Treatment Clinical Notes Apr, 6 weeks follow-up (ICD-10 - Z39.2) Pt doing well with complaints of Pt presents for 6 week visit. Pt is s/p vaginal delivery. Pt states depression, denies suicidal and homicidal ideations. Discussed all options with pt regarding control. Pt desires. nuva ring ... Pt to return for annual unless needed sooner. [facility] Other 12-14-2022 Evaluation note* Encounter Date Diagnosis Assessment Notes Treatment Notes Treatment Clinical Notes Feb, (ICD-10 - Z33.1) Pt doing well with complaints of being tired, d/t . Pt desires induction- consents signed. Pt will discuss with induction 03/07/22 or 03/12/22- report to [facility] at 0500. Pt verbalizes frequent movement. labor precautions given, fkc tid. Pt to return in 6 weeks for scheduled 6 week . Documented on behalf of Leonidas Skinner D.O. by Linsey Riggs LPN [facility] Other 12-06-2022 Evaluation note* Encounter Date Diagnosis Assessment Notes Treatment Notes Treatment Clinical Notes Feb, (ICD-10 - Z33.1) [facility] Other 11-29-2022 Evaluation note* Encounter Date Diagnosis Assessment Notes Treatment Notes Treatment Clinical Notes Jan, (ICD-10 - Z33.1) Pt doing well with complaints of being tired, d/t . Pt verbalizes frequent movement. labor precautions given, fkc tid. Pt to return in 1 week for scheduled OB appt. ABDIFATAH Arnold [facility] Other 11-22-2022 Evaluation note* Encounter Date Diagnosis Assessment Notes Treatment Notes Treatment Clinical Notes Jan, (ICD-10 - Z33.1) Jan, STD exposure (ICD-10 - Z20.2) Jan, Vaginal discharge (ICD-10 - N89.8) [facility] Other 01-06-2022 Evaluation note* Encounter Date Diagnosis Assessment Notes Treatment Notes Treatment Clinical Notes Mar, Encounter for care after hospital delivery (ICD-10 - Z39.2) Pt denies any nausea, vomiting, fever, or chills. Denies any bladder or breast problems. Patient still has somewhat painful BM - continues on Colace and using hemorrhoid wipes which has been improving symptoms. No excessive bleeding or abnormal discharge. Pt denies any severe depression symptoms. Discussed control options-Condoms, natural family planning, BCP, Nexplanon, NuvaRing, Depo-Provera, Liletta IUD. Currently bottle feeding. Desires to restart OCP, can start 2 Sundays from now. Advised can take up to 3 full pill packs to regulate menses Mar, Other Entered by Theodora Frazier LPN, acting as scribe for Dr. Devante Yuan. Signature: Loyda Frazier LPN The documentation recorded by the scribe accurately reflects the service(s) I personally performed and the decisions I made. Signature: Devante Yuan DO [facility] Other 12-06-2021 Evaluation note* Encounter Date Diagnosis Assessment Notes Treatment Notes Treatment Clinical Notes Feb, 40 weeks gestation of (ICD-10 - Z3A.40) Feb, Rh negative status during (ICD-10 - O09.899) Feb, Obesity affecting in third trimester (ICD-10 - O99.213) Feb, related conditions, unspecified, third trimester (ICD-10 - O26.93) Feb, Excessive weight gain during in third trimester (ICD-10 - O26.03) [facility] Other 11-29-2021 Evaluation note* Encounter Date Diagnosis Assessment Notes Treatment Notes Treatment Clinical Notes Jan, 39 weeks gestation of (ICD-10 - Z3A.39) Jan, Rh negative status during (ICD-10 - O09.899) Jan, Obesity affecting in third trimester (ICD-10 - O99.213) Jan, related conditions, unspecified, third trimester (ICD-10 - O26.93) Jan, Excessive weight gain during in third trimester (ICD-10 - O26.03) [facility] Other 11-22-2021 Evaluation note* Encounter Date Diagnosis Assessment Notes Treatment Notes Treatment Clinical Notes Jan, Rh negative status during (ICD-10 - O09.899) Jan, Obesity affecting in third trimester (ICD-10 - O99.213) Jan, related conditions, unspecified, third trimester (ICD-10 - O26.93) Jan, Excessive weight gain during in third trimester (ICD-10 - O26.03) Jan, 38 weeks gestation of (ICD-10 - Z3A.38) [facility] ([facility]) Other 11-15-2021 Evaluation note* Encounter Date Diagnosis Assessment Notes Treatment Notes Treatment Clinical Notes Jan, 37 weeks gestation of (ICD-10 - Z3A.37) Jan, Rh negative status during (ICD-10 - O09.899) Jan, Obesity affecting in third trimester (ICD-10 - O99.213) Jan, related conditions, unspecified, third trimester (ICD-10 - O26.93) Jan, Excessive weight gain during in third trimester (ICD-10 - O26.03) [facility] Other 11-08-2021 Evaluation note* Encounter Date Diagnosis Assessment Notes Treatment Notes Treatment Clinical Notes Jan, 36 weeks gestation of (ICD-10 - Z3A.36) Jan, Rh negative status during (ICD-10 - O09.899) Jan, Obesity affecting in third trimester (ICD-10 - O99.213) Jan, related conditions, unspecified, third trimester (ICD-10 - O26.93) Jan, Excessive weight gain during in third trimester (ICD-10 - O26.03) [facility] Other 11-03-2021 Evaluation note* Encounter Date Diagnosis Assessment Notes Treatment Notes Treatment Clinical Notes Jan, 36 weeks gestation of (ICD-10 - Z3A.36) Jan, Rh negative status during (ICD-10 - O09.899) Jan, Obesity affecting in third trimester (ICD-10 - O99.213) [facility] Other 11-03-2021 Evaluation note* Encounter Date Diagnosis Assessment Notes Treatment Notes Treatment Clinical Notes Jan, related conditions, unspecified, third trimester (ICD-10 - O26.93) Jan, Excessive weight gain during in third trimester (ICD-10 - O26.03) [facility] Other 10-25-2021 Evaluation note* Encounter Date Diagnosis Assessment Notes Treatment Notes Treatment Clinical Notes Dec, 34 weeks gestation of (ICD-10 - Z3A.34) Dec, Rh negative status during (ICD-10 - O09.899) [facility] Other 10-11-2021 Evaluation note* Encounter Date Diagnosis Assessment Notes Treatment Notes Treatment Clinical Notes Dec, 32 weeks gestation of (ICD-10 - Z3A.32) Dec, Rh negative status during (ICD-10 - O09.899) [facility] Other 09-27-2021 Evaluation note* Encounter Date Diagnosis Assessment Notes Treatment Notes Treatment Clinical Notes Nov, 30 weeks gestation of (ICD-10 - Z3A.30) Nov, Rh negative status during (ICD-10 - O09.899) [facility] Other 09-13-2021 Evaluation note* Encounter Date Diagnosis Assessment Notes Treatment Notes Treatment Clinical Notes Nov, Rh negative status during (ICD-10 - O09.899) Nov, 28 weeks gestation of (ICD-10 - Z3A.28) [facility] Other 09-07-2021 Evaluation note* Encounter Date Diagnosis Assessment Notes Treatment Notes Treatment Clinical Notes Nov, Rh negative status during (ICD-10 - O09.899) [facility] Other 08-16-2021 Evaluation note* Encounter Date Diagnosis Assessment Notes Treatment Notes Treatment Clinical Notes Oct, 24 weeks gestation of (ICD-10 - Z3A.24) Oct, Rh negative status during (ICD-10 - O09.899) [facility] Other 07-19-2021 Evaluation note* Encounter Date Diagnosis Assessment Notes Treatment Notes Treatment Clinical Notes Sep, related conditions, unspecified, second trimester (ICD-10 - O26.92) [facility] Other 07-19-2021 Evaluation note* Encounter Date Diagnosis Assessment Notes Treatment Notes Treatment Clinical Notes Sep, 20 weeks gestation of (ICD-10 - Z3A.20) [facility] Other 06-14-2021 Evaluation note* Encounter Date Diagnosis Assessment Notes Treatment Notes Treatment Clinical Notes Aug, 15 weeks gestation of (ICD-10 - Z3A.15) Aug, Encounter for care of first , antepartum, first trimester (ICD-10 - Z34.01) [facility] Other 05-21-2021 Evaluation note* Encounter Date Diagnosis Assessment Notes Treatment Notes Treatment Clinical Notes July, Other specified related conditions, first trimester (ICD-10 - O26.891) July, 12 weeks gestation of (ICD-10 - Z3A.12) [facility] Other 04-13-2021 Evaluation note* Encounter Date Diagnosis Assessment Notes Treatment Notes Treatment Clinical Notes Jun, Encounter for care of first , antepartum, first trimester (ICD-10 - Z34.01) [facility] Other evaluation noteNo [facility] ([facility])Evaluation note* Diagnosis Onset Date Resolution Status Fall noneactive Contusion of right shoulder noneactive [facility] Work Phone: History general Narrative - Reported* Type Description Date Medical History Anxiety Medical History Anemia Medical History Heartburn in Medical History Dyspareunia Hospitalization History no [facility] ([facility])History general Narrative - Reported* Type Description Date Medical History Anemia Medical History Anxiety [facility] Other Summary Purpose Family History No Family History Records Found Relationship Condition Age at Onset Recorded Date/T hortensia grandparent Malignant neoplasm of lung Unknown Advance Directives No Advanced Directives Records Found Advance Directive Response Recorded Date/ Time Advance Directives No November 07, 2020 4:08pm 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 EKG and echo pending. Diagnosis 1 Syncope and collapse (R55) Referral Organization [facility] on[facility] Referring Provider First Name Dai Referring Provider Last Name Karol Referring Provider Specialty [facility] Referred Organization [facility] Cardiology Referred Provider Maegan Crowder Referred Address [address] [address],[place], [place],[id number] Referred Provider Specialty Cardiovascul ar Disease Referral Priority Routine General Notes Zullyryland Bela 12:56:59 PM >received today,sent P2P pedning testing Reason *FU 08/02 Last OV, phone note. Had two pregnancies and two healthy babies in the last less than2 years. Depression, anxiety. Hasn't had good results with typical rx's. Diagnosis 1 Persistent depressiv e disorder (F34.1) Referral Organization [facility] [employer] [facility] Referring Provider First Name Dai Referring Provider Last Name Karol Referring Provider Specialty [facility] Referred Organization [facility] [place] Referred Provider Alivia Dawson Referred Address [address] [place], [place],[address] Referred Provider Specialty Psychiatry Referral Priority Routine General Notes Jessica Dudley 023 09:13:26 AM >Received today and filled form out and fax to [facility] [place] 07/29/2022 12:33:10 PM >received TE that pt got a new number, send new form to [facility] with updated number Clinical Notes Office [phone] Chief Complaint and Reason for Visit Chief Complaint right shoulder injur y from fall Reason for Visit Fall Contusion of right shoulder Additional Source Comments INFORMATION SOURCE (unrecogn ized section and content) DATE CREATED AUTHOR 10/18/2021 [facility] DATE CREATED AUTHOR AUTHOR'S ORGANIZ ATION 08/04/2022 [facility] DATE CREATED AUTHOR AUTHOR'S ORGANIZ ATION 06/16/2023 [facility] REASON FOR VISIT (unrecogniz ed section and content) NOB nurse visit aware phone visit LMP 05/16/20[facility] DemographicsUpdate [facility] DemographicsOB HEARTBURNOB US followed by LIBRA Vincent visitRETURNED CALL OB RESCHEDULE NURSE VISITUpdate [facility] Demographicsobus w pncpnc after obusUpdate Demographics - Personal InfopncRX SIGN OFFpncPREGNANCY CONCERNSR/S PNC ApptpncPNCPNCPNCPNC- SIVAKUMAR ptPNC after OBUS per SB*seen PPJ 01/15pncUpdate [facility] DemographicsPNCppNo InformationRETURN OB1WKS (36WKS)induction 01/27 9 pm cytotec 50 vagThinks UTIpncPNCRETURN OB 1WK (39WKS)OBUS w PNC per SB6 WK PPRETURN OB 1 WK ( 38 WKS )RETURN OB 1 WK ( 38 WKS )OB - Severe HeartburnRETURN OB 1WK (37WKS)sore throatmedication changespsychiatry referral.Confirmation for apptwants to change medicationPOISON IVYRefillepisode of dizziness, possibly passing out ??REFERRED BY DR. DAI ROBERSON FOR SYNCOPE AND COLLAPSERefillCARDIO NOTESneeds orderClinicallab results Care Teams (unrecognized sec tion and content) Team Status: Active Member Role Status Dates Dai Roberson MD Primary Care Provider Active Team Status: Inactive Member Role Status Dates Dai Roberson MD Primary Care Provider Active Start: June 15, 2023 End: June 15, 2023 Arely Lentz APRN Attending Provider Active Start: June 15, 2023 End: June 15, 2023 Goals (unrecognized section and content) Goals may be documented in a n alternate section FOR RECORDS PERTAINING TO PATIENTS WHO ARE OR HAVE BEEN ENROLLED IN A CHEMICAL DEPENDENCY/SUBSTANCEABUSE PROGRAM, SOME INFORMATION MAY BE OMITTED. This clinical summary was aggregated from multiple sources. Caution should be exercised in using it in the provision of clinical care. This summary normalizes information from multiple sources, and as a consequence, information in this document may materially change the coding, format and clinical context of patient data. In addition, data may be omitted in some cases. CLINICAL DECISIONS SHOULD BE BASED ON THE PRIMARY CLINICAL RECORDS. [facility] [employer] provides no warranty or guarantee of the accuracy or completeness of information in this document.
== END 2023-08-04 19:41 | disposition home or self-care (01) ==
LOC: LAB 19:40
PROVIDERS: PCP Family Medicine; Visit Provider Physician Assistant
DX: Z01.419 Encounter for gynecological examination (general) (routine) without abnormal findings (principal)
CPT/HCPCS: G0145

== ENCOUNTER 2023-09-15 21:30 | Outpatient (REF) | payer OTHER, SELFPAY ==
--- OUTSIDE RECORDS SUMMARY | 2023-09-15 21:34 | XMS_ITS | CCD ---
Author Organization [facility] Providers Care Parts Interpreter Name Role Phone DEVANTE YUAN Unavailable NOMS, UNKNOWN Unavailable Unavailable INESBAUDILIO Unavailable LEONIDAS SKINNER Unavailable SALMA, BHUMIKA Unavailable Alyssa Fortune Unavailable Dai Roberson Unavailable [...] NELIA ., DR LAUREN Admitting Unavailable SALMA ., BHUMIKA Consulting Unavailable KAROL, DR DAI Hernandez Primary Care Unavailable SALMA ., BHUMIKA Attending Unavailable SALMA ., BHUMIKA Admitting Unavailable NELIA ., DR LAUREN Consulting Unavailable KAROL, DR DAI Hernandez Primary Care Unavailable NELIA ., DR LAUREN Attending Unavailable NELIA ., DR LAUREN Admitting Unavailable NELIA ., DR LAUREN Consulting Unavailable [facility], DR REED Primary Care Unavailable NELIA ., DR LAUREN Attending Unavailable NELIA ., DR LAUREN Admitting Unavailable NELIA ., DR LAUREN Consulting Unavailable MISC, DR REED Primary Care Unavailable NELIA ., DR LAUREN Attending Unavailable NELIA ., DR LAUREN Admitting Unavailable NELIA ., DR LAUREN Consulting Unavailable [facility], DR REED Primary Care Unavailable NELIA ., DR LAUREN Attending Unavailable NELIA ., DR LAUREN Admitting Unavailable NELIA ., DR LAUREN Consulting Unavailable ROBERSON, DR DAI Hernandez Primary Care Unavailable NELIA ., DR LAUREN Attending Unavailable NELIA ., DR LAUREN Admitting Unavailable MICHAEL HAINES Consulting Unavailable NELIA ., DR LAUREN Procedure Practitioner Unavail able KARASIK ., DR MARSH Consulting Unavailabl e KAROL, DR DAI Hernandez Primary Care Unavailable NELIA ., DR LAUREN Attending Unavailable NELIA ., DR LAUREN Admitting Unavailable DORCHESTER, DR GÉNESIS Mckeon Consulting Unavailable NELIA ., DR LAUREN Consulting Unavailable Vel, Maegan Unavailable MD Dai Roberson Primary Care Provider MALCOLM Lentz Attending Provider [phone] Dai Roberson Primary Care Unavailable Vel, Maegan Admitting Unavailable Vel, Maegan Attending Unavailable Vel, Maegan Referring Unavailable Arely Lentz Admitting Unavailable Arely Lentz Attending Unavailable Dai Roberson Primary Care Unavailable Robb Mendoza Admitting Unavailab Robb Estrada Attending [facility]ailab [facility] Unavailable BHUMIKA MARSH Attending Unavailable Allergies Allergy Classification Reported Allergen(s) Allergy Type Date of Onset Reaction(s) Facility (20 sources) Penicillin; Translations: [penicillin] Drug Allergy [facility] Repository (15 sources) Penicillin G Drug Allergy [address] [place] [address] (1 source) Penicillin G Potassium Drug allergy [facility] Other (3 sources) Penicillins; Translations: [Penicillins] Allergy to substance [address] [place] [address] (1 source) Penicillin Drug Allergy [address] [place] [address] Repository Medications Current Medications Medication Drug Class(es) [...] a day for 30 days Jun, Active 21 day ethinyl estradiol 0.074121 mg/hr / etonogestrel 0.005 mg/hr vaginal system (20 sources) Progestin, Estrogen Start: 04-24-2022 NuvaRing 0.12-0.015 MG/24HR [address] for 3 weeks, remove, and replace with a new ring after 7 day break Vaginal for 28 days Apr, Active predniSONE 10 mg oral tablet (2 sources) [...] 12 hrs for 10 day(s) May, Not-Taking docusate sodium 100 mg oral capsule (20 sources) Start: 03-01-2021 End: 08-28-2023 take 1 capsule by mouth at bedtime Docusate Sodium (Dok) 100 mg Capsule Discontinued 100 MG PO Bedtime March 01, 2021 1:00am August 28, 2023 6:24pm Colace Active ethinyl estradiol 0.03 mg / ferrous fumarate 75 mg / norethindrone 1.5 mg oral tablet (4 sources) Estrogen take 1 tablet by mouth every twenty-four hours FE 1.5/30 1.5-30 MG-MCG 1 tablet Orally Once a day Not-Taking fluticasone propionate 0.05 mg/actuat metered dose nasal spray (4 sources) Corticosteroid Start: take 1 spray(s) nasal route once daily Fluticasone Propionate 50 MCG/ACT 1 spray in each nostril Nasally Once a day for 21 days May, Not-Taking ibuprofen 800 mg oral tablet (4 sources) Nonsteroidal Anti-inflammatory Drug Start: End: take 800 mg by mouth every eight hours Ibuprofen Discontinued 800 MG PO Q8H 11 10June 15, 2023 12:00am August 28, 2023 6:18pm Start: 03-01-2021 End: 08-28-2023 take 600 mg by mouth every six hours Ibuprofen Discontinued 600 MG PO Q6H March 01, 2021 1:00am August 28, 2023 6:24pm lidocaine 0.05 mg/mg medicated patch (2 sources) Antiarrhythmic, Amide Local Anesthetic Start: 06-15-2023 End: 08-28-2023 apply 1 dose topically once daily Lidocaine Discontinued 1 PATCH TOPICAL Daily 09 27June 15, 2023 12:00am August 28, 2023 6:18pm leave on most painful area for up to 12 hrs omeprazole 20 mg delayed release oral capsule [...] day for 90 days Not-Taking (4 sources) Not-Taking terconazole 8 mg/ml vaginal cream (2 sources) Azole Antifungal Start: 01-05-2021 End: 02-26-2021 Terconazole Discontinued 1 APPLICATOR VAGINAL Daily at bedtime January 05, 2021 12:00am February 26, 2021 10:40pm Problems Active Problems Problem Classification Problem Date Documented Date Episodic/Chronic Allergic reactions (1 source) Allergic contact dermatitis due to plants, except food Episodic Anxiety disorders (16 sources) Anxiety; Translations: [Anxiety disorder, unspecified] Chronic Deficiency and other anemia (14 sources) Anemia; Translations: [Anemia, unspecified] 08-28-2023 Episodic Disorders usually diagnosed in infancy, childhood, or adolescence (14 sources) Adult attention deficit hyperactivity disorder ; Translations: [Other specified behavioral and emotional disorders with onset usually occurring in childhood and adolescence] Chronic E Codes: Fall (2 sources) Unspecified fall, initial encounter; Translations: [Unspecified fall] 06-15-2023 Episodic Menstrual disorders (1 source) Irregular menstruation, unspecified; Translations: [IRREGULAR MENSTRUATION UNSPECIFIED] Onset: 08-29-2021 Chronic Mood disorders (14 sources) Dysthymic disorder; Translations: [Persistent depressive disorder] [...] of vagina] Episodic Other female genital disorders (2 sources) History of past delivery; Translations: [Status post vaginal delivery] 03-01-2021 Episodic Other screening for suspected conditions (not mental disorders or infectious disease) (20 sources) Encounter for screening for malignant neoplasm of cervix; Translations: [Encounter for screening for diabetes mellitus] Onset: 08-22-2021 Episodic Other upper respiratory infections (2 sources) Acute pharyngitis, unspecified; Translations: [Acute pharyngitis] Episodic Otitis media and related conditions (1 [...] weeks gestation of Episodic Superficial injury; contusion (2 sources) Contusion of right shoulder, initial encounter; Translations: [...] Test Name Value Interpretation Reference Range Facility No Panel InformationOrdered By: Debora Curran on 08-28-2023 Quick Strep (POC) [facility] Human papilloma virus 16+18+ 31+33+35+39+45+51+52+56+58+59+66+68 DNA [Presence] in [place] 08-04-2023 HPV 16+18+31+33+35+39+45+5 1+52+56+58+59+66+68 DNA Probe+sig amp Ql (Cvx) Note . [facility] Comment on above: TESTS RESULT FLAG UN ITS REF RANGE LAB DIAGNOSIS: 02 UNSATISFACTORY FOR EVALUATION.Recommendation: 02 Suggest follow up as clinically appropriate.Specimen adequacy: 02 Specimen processed and examined but unsatisfactory for evaluation of epithelial abnormality because of insufficient cellularity.Performed by: 02 Ariana Montero, Principal Database Developer ([facility])QC reviewed by: 02 Rachel Jarrell, Supervisory Principal Database Developer ([facility]). 02Note: Note 02 The Pap smear is a screening test designed to aid in the detection of premalignant and malignant conditions of the uterine cervix. It is not a diagnostic procedure and should not be used as the sole means of detecting cervical cancer. Both false-positive and false-negative reports do occur.Test Methodology: Note 02 This liquid based ThinPrep(R) pap test was screened with the use of an image guided system.. 02 The HPV DNA reflex criteria were not met with this specimen result therefore, no HPV testing was performed. ------- FLAG LEGEND: L-Low Normal,H-High Normal,LL-Alert Low,HH-Alert High <-Panic Low,>-Panic High,A-Abnormal,AA-Critical Abnormal -----Performed at:[address] [facility] [address] [place] [address] Karine Meehan MD, Fqvnhflzg at: = - [facility] [address] [id number] Director: Karine Meehan MD, Phone: [phone] at: - [facility]za[place], [place] [id number] Director: Karine Meehan MD, Phone: [phone] No Panel Informationon 08-03 Reference Lab Test Patient Age Note . [facility] Comment on above: TESTS RESULT FLAG UN ITS REF RANGE LAB Clinician Provided Cytology Information Source.............Cervix;Endocervix No. of containers..01 ThinPrep VialAge Algo ACOG [place]... FLAG LEGEND: L-Low Normal,H-High Normal,LL-Alert Low,HH-Alert High <-Panic Low,>-Panic High,A-Abnormal,AA-Critical Abnormal -----Performed at:01 [address] [address] Karine Meehan MD, XR shoulder RT min 2V*on XR shoulder RT min 2V* [facility] [place] [address] XRay Report Signed Patient: Malini Degroot MR#: [id number] : 1995 Acct:[id number] Age/Sex: 27 / F ADM Date: 06/15/23 Loc: XDUCLY Room: Type: [facility] Attending Dr: Arely Lentz APRN Copies to: [...] Edward Torres M.D.06/15/2023 1:13 PM Dictation Location: [place] [address] Transcribed By: [facility] 06/15/231312 Dictated By: Edward Torres DO 06/15/231312 Signed By: 06/15/231312 [facility] [place] cardiac event monitoron 1 04-12-2022 [place] cardiac event monitor [facility] [place] [address] Cardiac Event Monitor Signed Patient: Malini Degroot MR#: [id number] : 1995 Acct:[id number] Age/Sex: 27 / F ADM Date: 01/23/23 Loc: Room: Type: [facility] Attending Dr: Maegan Crowder MD Copies to: Tyson Trejo MD, [facility] Maegan Crowder MD Ordering Provider: Maegan Crowder [...] not correlate with cardiac arrhythmias. Transcribed By: BERENICE 02/10/23 131 Dictated By: Tyson Trejo MD, [facility] 02/10/23 1039 Signed By: 02/11/23 1322 [facility] Quick Strepon 05-27-2022 S. pyogenes Org specific cx Ql (Throat) Negative [facility] Other Quick Strep [facility] Other CBC AUTO DIFFon 03-13-2022 BASO # 0.0 103/ul Normal 0.0-0.1 [facility] Comment on above: Performed By: #### C BC #### [facility] [address] [address] [address] Evita Carrington Basophils/100 WBC (Bld) 0.3 % Normal 0.2-2.0 [facility] Comment on above: Performed By: #### C BC #### [facility] [address] [address] [address] Evita Carrington EO # 0.1 103/ul Normal 0.0-0.7 [facility] Comment on above: Performed By: #### C BC #### [facility] [address] [place] [address] Dr. Evita Carrington Eosinophils/100 WBC (Bld) 0.7 % Critically low 0.9-7.0 [facility] Comment on above: Performed By: #### C BC #### [facility] [address] [place] [address] Dr. Evita Carrington Erythrocyte distribution width (RBC) [Ratio] 14.4 % Normal 11.0-15.0 [facility] Comment on above: Performed By: #### C BC #### [facility] [address] [place] [address] Dr. Evita Carrington Hematocrit (Bld) [Volume fraction] 32.5 % Critically low 36.0-48.0 [facility] Comment on above: Performed By: #### C BC #### [facility] [address] [place] [address] Dr. Evita Carrington Hemoglobin (Bld) [Mass/Vol] 10.3 g/dL Critically low 12.0-16.0 [facility] Comment on above: Performed By: #### C BC #### [facility] [address] [place] [address] Dr. Evita Carrington IG # 0.07 10e3/ul Critically high 0.00-0.03 [facility] Comment on above: Performed By: #### C BC #### [facility] [address] [place] [address] Dr. Evita Carrington IG % 0.5 % Normal 0.0-0.5 [facility] Comment on above: Performed By: #### C BC #### [facility] [address] [place] [address] Dr. Evita Carrington LYMPH # 2.0 103/ul Normal 1.2-3.8 [facility] Comment on above: Performed By: #### C BC #### [facility] [address] [place] [address] Dr. Evita Carrington Lymphocytes/100 WBC (Bld) 13.6 % Critically low 20.5-60.0 [facility] Comment on above: Performed By: #### C BC #### [facility] [address] [place] [address] Dr. Evita Carrington MANUAL DIFF REQ NO Normal [facility] Comment on above: Performed By: #### C BC #### [facility] [address] [place] [address] Dr. Evita Carrington MCH (RBC) [Entitic mass] 25.9 pg Critically low 26.7-34.0 [facility] Comment on above: Performed By: #### C BC #### [facility] [address] [place] [address] Dr. Evita Carrington MCHC (RBC) [Mass/Vol] 31.7 g/dL Normal 29.9-35.2 [facility] Comment on above: Performed By: #### C BC #### [facility] [address] [place] [address] Dr. Evita Carrington MCV (RBC) [Entitic vol] 81.9 fL Normal 81.0-99.0 [facility] Comment on above: Performed By: #### C BC #### [facility] [address] [place] [address] Dr. Evita Carrington MONO # 1.2 103/ul Critically high 0.3-0.8 [facility] Comment on above: Performed By: #### C BC #### [facility] [address] [place] [address] Dr. Evita Carrington Monocytes/100 WBC (Bld) 8.3 % Normal 1.7-12.0 [facility] Comment on above: Performed By: #### C BC #### [facility] [address] [place] [address] Dr. Evita Carrington NEUT # 11.2 103/ul Critically high 1.4-6.5 [facility] Comment on above: Performed By: #### C BC #### [facility] [address] [place] [address] Dr. Evita Carrington Neutrophils/100 WBC (Bld) 76.6 % Critically high 43.0-75.0 [facility] Comment on above: Performed By: #### C BC #### [facility] [address] [place] [address] Dr. Evita Carrington Platelet mean volume (Bld) [Entitic vol] 10.6 fL Normal 9.5-13.5 [facility] Comment on above: Performed By: #### C BC #### [facility] [address] [place] [address] Dr. Evita Carrington PLT 222 103/ul Normal 150-450 [facility] Comment on above: Performed By: #### C BC #### [facility] [address] [place] [address] Dr. Evita Carrington RBC 3.97 106/ul Critically low 4.20-5.40 [facility] Comment on above: Performed By: #### C BC #### [facility] [address] [place] [address] Dr. Evita Carrington WBC 14.5 103/ul Critically high 4.0-11.0 [facility] Comment on above: Performed By: #### C BC #### [facility] [address] [place] [address] Dr. Evita Carrington CBC AUTO DIFFon 03-12-2022 BASO # 0.0 103/ul Normal 0.0-0.1 [facility] Comment on above: Performed By: #### C BC #### [facility] [address] [place] [address] Dr. Evita Carrington Basophils/100 WBC (Bld) 0.3 % Normal 0.2-2.0 [facility] Comment on above: Performed By: #### C BC #### [facility] [address] [place] [address] Dr. Evita Carrington EO # 0.1 103/ul Normal 0.0-0.7 [facility] Comment on above: Performed By: #### C BC #### [facility] [address] [place] [address] Dr. Evita Carrington Eosinophils/100 WBC (Bld) 0.9 % Normal 0.9-7.0 [facility] Comment on above: Performed By: #### C BC #### [facility] [address] [place] [address] Dr. Evita Carrington Erythrocyte distribution width (RBC) [Ratio] 14.4 % Normal 11.0-15.0 [facility] Comment on above: Performed By: #### C BC #### [facility] [address] [place] [address] Dr. Evita Carrington Hematocrit (Bld) [Volume fraction] 33.6 % Critically low 36.0-48.0 [facility] Comment on above: Performed By: #### C BC #### [facility] [address] [place] [address] Dr. Evita Carrington Hemoglobin (Bld) [Mass/Vol] 10.8 g/dL Critically low 12.0-16.0 [facility] Comment on above: Performed By: #### C BC #### [facility] [address] [place] [address] Dr. Evita Carrington IG # 0.06 10e3/ul Critically high 0.00-0.03 [facility] Comment on above: Performed By: #### C BC #### [facility] [address] [place] [address] Dr. Evita Carrington IG % 0.6 % Critically high 0.0-0.5 [facility] Comment on above: Performed By: #### C BC #### [facility] [address] [place] [address] Dr. Evita Carrington LYMPH # 2.1 103/ul Normal 1.2-3.8 [facility] Comment on above: Performed By: #### C BC #### [facility] [address] [place] [address] Dr. Evita Carrington Lymphocytes/100 WBC (Bld) 21.7 % Normal 20.5-60.0 [facility] Comment on above: Performed By: #### C BC #### [facility] [address] [place] [address] Dr. Evita Carrington MANUAL DIFF REQ NO Normal [facility] Comment on above: Performed By: #### C BC #### [facility] [address] [place] [address] Dr. Evita Carrington MCH (RBC) [Entitic mass] 26.1 pg Critically low 26.7-34.0 [facility] Comment on above: Performed By: #### C BC #### [facility] [address] [place] [address] Dr. Evita Carrington MCHC (RBC) [Mass/Vol] 32.1 g/dL Normal 29.9-35.2 [facility] Comment on above: Performed By: #### C BC #### [facility] [address] [place] [address] Dr. Evita Carrington MCV (RBC) [Entitic vol] 81.2 fL Normal 81.0-99.0 [facility] Comment on above: Performed By: #### C BC #### [facility] [address] [place] [address] Dr. Evita Carrington MONO # 0.7 103/ul Normal 0.3-0.8 [facility] Comment on above: Performed By: #### C BC #### [facility] [address] [place] [address] Dr. Evita Carrington Monocytes/100 WBC (Bld) 6.9 % Normal 1.7-12.0 [facility] Comment on above: Performed By: #### C BC #### [facility] [address] [place] [address] Dr. Evita Carrington NEUT # 6.6 103/ul Critically high 1.4-6.5 [facility] Comment on above: Performed By: #### C BC #### [facility] [address] [place] [address] Dr. Evita Carrington Neutrophils/100 WBC (Bld) 69.6 % Normal 43.0-75.0 [facility] Comment on above: Performed By: #### C BC #### [facility] [address] [place] [address] Dr. Evita Carrington Platelet mean volume (Bld) [Entitic vol] 10.6 fL Normal 9.5-13.5 [facility] Comment on above: Performed By: #### C BC #### [facility] [address] [place] [address] Dr. Evita Carrington PLT 255 103/ul Normal 150-450 [facility] Comment on above: Performed By: #### C BC #### [facility] [address] [place] [address] Dr. Evita Carrington RBC 4.14 106/ul Critically low 4.20-5.40 [facility] Comment on above: Performed By: #### C BC #### [facility] [address] [place] [address] Dr. Evita Carrington WBC 9.5 103/ul Normal 4.0-11.0 [facility] Comment on above: Performed By: #### C BC #### [facility] [address] [place] [address] Dr. Evita Carrington Covid-19 PCR ([facility])on 02-22 SARS-CoV-2 (COVID-19) RNA MELANY+probe Ql (Unsp spec) Not detected Normal NOT DETECTED [facility] Comment on above: Result Comment: When [...] for this test is supported by the [employer] Worker of Health and Human Service's declaration that [...] used). Performed By: #### C VDTBH #### [facility] [address] [place] [address] Dr. Evita Carrington DRUG SCREEN RAPID (URINE)on 03-12-2022 AMP Negative Normal NEGATIVE [facility] Comment on above: Performed By: #### D RUGRPD #### [facility] [address] [place] [address] Dr. Evita Carrington BAR Negative Normal NEGATIVE [facility] Comment on above: Performed By: #### D RUGRPD #### [facility] [address] [place] [address] Dr. Evita Carrington BUP Negative Normal NEGATIVE [facility] Comment on above: Performed By: #### D RUGRPD #### [facility] [address] [place] [address] Dr. Evita Carrington BZO Negative Normal NEGATIVE [facility] Comment on above: Performed By: #### D RUGRPD #### [facility] [address] [place] [address] Dr. Evita Carrington HERSON Negative Normal NEGATIVE [facility] Comment on above: Performed By: #### D RUGRPD #### [facility] [address] [place] [address] Dr. Evita Carrington CUT-OFFS SEE BELOW Normal [facility] Comment on above: Result Comment: AMP [...] ng/mL Performed By: #### D RUGRPD #### [facility] [address] [place] [address] Dr. Evita Carrington DRUG CUT HEADER DRUG CLASS TEST SYSTEM CUT-OFF CONCENTRATIONS ARE FOLLOWS: Normal [facility] Comment on above: Performed By: #### D RUGRPD #### [facility] [address] [place] [address] Dr. Evita Carrington mAMP Negative Normal NEGATIVE [facility] Comment on above: Performed By: #### D RUGRPD #### [facility] [address] [place] [address] Dr. Evita Carrington MTD Negative Normal NEGATIVE [facility] Comment on above: Performed By: #### D RUGRPD #### [facility] [address] [place] [address] Dr. Evita Carrington OPI Negative Normal NEGATIVE [facility] Comment on above: Performed By: #### D RUGRPD #### [facility] [address] [place] [address] Dr. Evita Carrington OXY Negative Normal NEGATIVE [facility] Comment on above: Performed By: #### D RUGRPD #### [facility] [address] [place] [address] Dr. Evita Carrington PCP Negative Normal NEGATIVE [facility] Comment on above: Performed By: #### D RUGRPD #### [facility] [address] [place] [address] Dr. Evita Carrington PPX Negative Normal NEGATIVE [facility] Comment on above: Performed By: #### D RUGRPD #### [facility] [address] [place] [address] Dr. Evita Carrington TCA Negative Normal NEGATIVE [facility] Comment on above: Performed By: #### D RUGRPD #### [facility] [address] [place] [address] Dr. Evita Carrington THC Negative Normal NEGATIVE [facility] Comment on above: Performed By: #### D RUGRPD #### [facility] [address] [address] [address] Evita Carrington TYPE AND SCREENon 03-12-2022 TYPE AND SCREEN Negative Normal [facility] Comment on above: Performed By: #### C BC #### [facility] [address] [place] [address] Dr. Evita Carrington US PREG BIOPHY W [...] GÉNESIS WILDER Date: 2022-03-04 08:27 Normal [facility] CHLAMYDIA/GONOCOCCUS MELANY (SW AB/URINE/PAPon 02-16-2022 Chlamydia trachomatis, MELANY Negative Normal Negative [facility] Comment on above: Performed By: #### A FPMAT #### [facility] [address] [place] [address] Dr. Evita Carrington Neisseria gonorrhoeae, MELANY Negative Normal Negative [facility] Comment on above: Performed By: #### A FPMAT #### [facility] [address] [place] [address] Dr. Evita Carrington GROUP B STREP CULTUREon [...] S F Tetracycline >=16 R F Normal [facility] Comment on above: Performed By: #### G BSCX #### [facility] [address] [place] [address] Dr. Evita Carrington VAGINITIS/VAGINOSIS DNA PROB Yoseph 02-14-2022 Jade species Negative Normal Negative [facility] Comment on above: Performed By: #### C BC #### [facility] [address] [place] [address] Dr. Evita Carrington Gardnerella vaginalis Negative Normal Negative [facility] Comment on above: Performed By: #### C BC #### [facility] [address] [place] [address] Dr. Evita Carrington Trichomonas vaginalis Negative Normal Negative [facility] Comment on above: Performed By: #### C BC #### [facility] [address] [place] [address] Dr. Evita Carrington TYPE AND SCREENon 02-11-2022 TYPE AND SCREEN Negative Normal [facility] Comment on above: Performed By: #### T NS #### [facility] [address] [place] [address] Dr. Evita Carrington GLUCOSE - 1HRon 12-03-2021 Glucose [Mass/Vol] 86 mg/dL Normal 74-106 [facility] Comment on above: Performed By: #### A FPMAT #### [facility] [address] [place] [address] Dr. Evita Carrington HEMOGRAM AND PLATELon 2021 Hematocrit (Bld) [Volume fraction] 32.2 % Critically low 36.0-48.0 [facility] Comment on above: Performed By: #### C BC #### [facility] [address] [place] [address] Dr. Evita Carrington Hemoglobin (Bld) [Mass/Vol] 10.4 g/dL Critically low 12.0-16.0 [facility] Comment on above: Performed By: #### C BC #### [facility] [address] [place] [address] Dr. Evita Carrington MCH (RBC) [Entitic mass] 28.5 pg Normal 26.7-34.0 [facility] Comment on above: Performed By: #### C BC #### [facility] [address] [place] [address] Dr. Evita Carrington MCHC (RBC) [Mass/Vol] 32.3 g/dL Normal 29.9-35.2 [facility] Comment on above: Performed By: #### C BC #### [facility] [address] [place] [address] Dr. Evita Carrington MCV (RBC) [Entitic vol] 88.2 fL Normal 81.0-99.0 [facility] Comment on above: Performed By: #### C BC #### [facility] [address] [place] [address] Dr. Evita Carrington PLT 230 103/ul Normal 150-450 [facility] Comment on above: Performed By: #### C BC #### [facility] [address] [place] [address] Dr. Evita Carrington RBC 3.65 106/ul Critically low 4.20-5.40 [facility] Comment on above: Performed By: #### C BC #### [facility] [address] [place] [address] Dr. Evita Carrington WBC 9.5 103/ul Normal 4.0-11.0 [facility] Comment on above: Performed By: #### C BC #### [facility] [address] [place] [address] Dr. Evita Carrington AFP MATERNAL FOR SPINA BIFID Aon 11-04-2021 AFP MoM 0.86 Normal [facility] Comment on above: Performed By: #### A FPMAT #### [facility] [address] [place] [address] Dr. Evita Carrington AFP Value 57.1 ng/mL Normal [facility] Comment on above: Performed By: #### A FPMAT #### [facility] [address] [place] [address] Dr. Evita Carrington AFP, Serum for Spina Bifida Report Normal [facility] Comment on above: Performed By: #### A FPMAT #### [facility] [address] [address] [address] Evita Carrington Comment Comment Normal [facility] Comment on above: Result Comment: Barak Correa, Ph.D., [facility] Director . References: Available Upon Request. . Multiples Of Median Cutoffs For AFP Elevations Pablo 2.5 Black 2.8 IDD 2.0 Twins 4.5 Abbreviation Definitions IDD - Insulin Dep Diabetes OSBR - Open Spina Bifida Risk . For further inquiries contact [employer] at [phone]. . This test was developed and its performance characteristics determined by [employer]. It has not been cleared or approved by the Food and Drug Administration. Performed By: #### A FPMAT #### [facility] [address] [place] [address] Dr. Evita Carrington Gest Age Collection Date 21.6 weeks Normal [facility] Comment on above: Performed By: #### A FPMAT #### [facility] [address] [place] [address] Dr. Evita Carrington Gestat, Age Based on LMP Normal [facility] Comment on above: Result Comment: Reca lculations are not recommended when gestational dating by LMP and ultrasound are within 10 days. Performed By: #### A FPMAT #### [facility] [address] [place] [address] Dr. Evita Carrington Insulin Dep Diabetes No Normal [facility] Comment on above: Performed By: #### A FPMAT #### [facility] [address] [place] [address] Dr. Evita Carrington Interpretation Comment Normal [facility] Comment on above: Result Comment: Inte rpretation: [...] Customer Services to discuss available options. The [employer] recommends amniocentesis be offered to women age 35 and older. Performed By: #### A FPMAT #### [facility] [address] [place] [address] Dr. Evita Carrington [age] Normal [facility] Comment on above: Performed By: #### A FPMAT #### [facility] [address] [address] [address] Evita Carrington Multiple Gestation No Normal [facility] Comment on above: Performed By: #### A FPMAT #### [facility] [address] [place] [address] Dr. Evita Carrington [place] [address] Normal [facility] Comment on above: Performed By: #### A FPMAT #### [facility] [address] [place] [address] Dr. Evita Carrington PDF . [facility] Comment on above: Performed By: #### A FPMAT #### [facility] [address] [place] [address] Dr. Evita Carrington [facility] Comment on above: Performed By: #### A FPMAT #### [facility] [address] [place] [address] Dr. Evita Carrington Test Results: Negative [facility] Comment on above: Performed By: #### A FPMAT #### [facility] [address] [place] [address] Dr. 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 SIGNATURE: DO Gamal Caceres DO 10/16/21 2336 Normal [facility] ED NOTEon 10-16-2021 ED NOTE HNO ID: [id number] Author: Kira Dotson, Medic Service: ? 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 Procedure took approximately 30 minutes of cutting. Ring removed @ 2200. Dr. Vinson aware. Pt had immediate relief of pain with ring removal. Pt given ice pack for pain relief. Normal [facility] CHLAMYDIA/GONOCOCCUS MELANY (SW AB/URINE/PAPon 09-21-2021 Chlamydia trachomatis, MELANY Negative Normal Negative [facility] Comment on above: Performed By: #### A FPMAT #### [facility] [address] [place] [address] Dr. Evita Carrington Neisseria gonorrhoeae, MELANY Negative Normal Negative [facility] Comment on above: Performed By: #### A FPMAT #### [facility] [address] [address] [address] Evita Carrington VAGINITIS/VAGINOSIS DNA PROB Yoseph 09-20-2021 Jade species Positive Abnormal Negative [facility] Comment on above: Performed By: #### V AGINT #### [facility] [address] [place] [address] Dr. Evita Carrington Gardnerella vaginalis Negative Normal Negative [facility] Comment on above: Performed By: #### V AGINT #### [facility] [address] [address] [address] Evita Carrington Trichomonas vaginalis Negative Normal Negative [facility] Comment on above: Performed By: #### V AGINT #### [facility] [address] [place] [address] Dr. Evita Carrington HEP B SURFACE ANTIGEN SCREEN on 08-23-2021 HBsAg Screen Negative Normal Negative [facility] Comment on above: Performed By: #### C BC #### [facility] [address] [address] [address] Evita Carrington HEPATITIS C VIRUS AB W/ REFL EX QUANTon 08-23-2021 HCV AB <0.1 Normal 0.0-0.9 [facility] Comment on above: Performed By: #### C BC #### [facility] [address] [place] [address] Dr. Evita Carrington Interpretation: Comment Normal [facility] Comment on above: Result Comment: Nega tive Not infected with HCV, unless recent infection is suspected or other evidence exists to indicate HCV infection. Performed By: #### C BC #### [facility] [address] [place] [address] Dr. Evita Carrington HIV 1 AND 2 WITH REFLEXon HIV Screen 4th Generation wRfx Non-Reactive Normal Non Reactive [facility] Comment on above: Result Comment: HIV Negative HIV-1/HIV-2 antibodies and HIV-1 p24 antigen were NOT detected. There is no laboratory evidence of HIV infection. Performed By: #### C BC #### [facility] [address] [place] [address] Dr. Evita Carrington RPR QUANTon 08-23-2021 Rapid Plasma Reagin, Quant Non-Reactive Normal NonRea<1:1 [facility] Comment on above: Result Comment: Plea se Note: This test does not meet current guidelines for screening and diagnosis of syphilis. This test is intended for following treatment response in patients being treated for syphilis infection. To screen for syphilis infection, a reflex cascade that includes both RPR and a treponema-specific assay should be utilized, such as Treponema pallidum (Syphilis) Screening Lyman (605943) or Rapid Plasma Reagin (RPR) Test With Reflex to Quantitative RPR and Confirmatory Treponema pallidum Antibodies (127653). Performed By: #### R PRQ #### [facility] [address] [place] [address] Dr. Evita Carrington RUBELLA AB IGGon 08-23-2021 Rubella Antibodies, IgG 1.41 index Normal Immune >0.99 [facility] Comment on above: Result Comment: Non- immune <0.90 Equivocal 0.90 - 0.99 Immune >0.99 Performed By: #### A FPMAT #### [facility] [address] [place] [address] Dr. Evita Carrington CBC AUTO DIFFon 08-22-2021 BASO # 0.0 103/ul Normal 0.0-0.1 [facility] Comment on above: Performed By: #### A FPMAT #### [facility] [address] [place] [address] Dr. Evita Carrington Basophils/100 WBC (Bld) 0.4 % Normal 0.2-2.0 [facility] Comment on above: Performed By: #### A FPMAT #### [facility] [address] [place] [address] Dr. Evita Carrington EO # 0.1 103/ul Normal 0.0-0.7 [facility] Comment on above: Performed By: #### A FPMAT #### [facility] [address] [place] [address] Dr. Evita Carrington Eosinophils/100 WBC (Bld) 0.7 % Critically low 0.9-7.0 [facility] Comment on above: Performed By: #### A FPMAT #### [facility] [address] [place] [address] Dr. Evita Carrington Erythrocyte distribution width (RBC) [Ratio] 14.3 % Normal 11.0-15.0 [facility] Comment on above: Performed By: #### A FPMAT #### [facility] [address] [place] [address] Dr. Evita Carrington Hematocrit (Bld) [Volume fraction] 35.4 % Critically low 36.0-48.0 [facility] Comment on above: Performed By: #### A FPMAT #### [facility] [address] [place] [address] Dr. Evita Carrington Hemoglobin (Bld) [Mass/Vol] 11.6 g/dL Critically low 12.0-16.0 [facility] Comment on above: Performed By: #### A FPMAT #### [facility] [address] [place] [address] Dr. Evita Carrington IG # 0.02 10e3/ul Normal 0.00-0.03 [facility] Comment on above: Performed By: #### A FPMAT #### [facility] [address] [place] [address] Dr. Evita Carrington IG % 0.3 % Normal 0.0-0.5 [facility] Comment on above: Performed By: #### A FPMAT #### [facility] [address] [place] [address] Dr. Evita Carrington LYMPH # 1.7 103/ul Normal 1.2-3.8 [facility] Comment on above: Performed By: #### A FPMAT #### [facility] [address] [place] [address] Dr. Evita Carrington Lymphocytes/100 WBC (Bld) 24.1 % Normal 20.5-60.0 [facility] Comment on above: Performed By: #### A FPMAT #### [facility] [address] [place] [address] Dr. Evita Carrington MANUAL DIFF REQ NO Normal [facility] Comment on above: Performed By: #### A FPMAT #### [facility] [address] [place] [address] Dr. Evita Carrington MCH (RBC) [Entitic mass] 27.6 pg Normal 26.7-34.0 [facility] Comment on above: Performed By: #### A FPMAT #### [facility] [address] [place] [address] Dr. Evtia Carrington MCHC (RBC) [Mass/Vol] 32.8 g/dL Normal 29.9-35.2 [facility] Comment on above: Performed By: #### A FPMAT #### [facility] [address] [place] [address] Dr. Evita Carrington MCV (RBC) [Entitic vol] 84.3 fL Normal 81.0-99.0 [facility] Comment on above: Performed By: #### A FPMAT #### [facility] [address] [place] [address] Dr. Evita Carrington MONO # 0.4 103/ul Normal 0.3-0.8 [facility] Comment on above: Performed By: #### A FPMAT #### [facility] [address] [place] [address] Dr. Evita Carrington Monocytes/100 WBC (Bld) 5.9 % Normal 1.7-12.0 [facility] Comment on above: Performed By: #### A FPMAT #### [facility] [address] [place] [address] Dr. Evita Carrington NEUT # 4.7 103/ul Normal 1.4-6.5 [facility] Comment on above: Performed By: #### A FPMAT #### [facility] [address] [place] [address] Dr. Evita Carrington Neutrophils/100 WBC (Bld) 68.6 % Normal 43.0-75.0 [facility] Comment on above: Performed By: #### A FPMAT #### [facility] [address] [place] [address] Dr. Evita Carrington Platelet mean volume (Bld) [Entitic vol] 10.6 fL Normal 9.5-13.5 [facility] Comment on above: Performed By: #### A FPMAT #### [facility] [address] [place] [address] Dr. Evita Carrington PLT 268 103/ul Normal 150-450 [facility] Comment on above: Performed By: #### A FPMAT #### [facility] [address] [place] [address] Dr. Evita Carrington RBC 4.20 106/ul Normal 4.20-5.40 [facility] Comment on above: Performed By: #### A FPMAT #### [facility] [address] [place] [address] Dr. Evita Carrington WBC 6.9 103/ul Normal 4.0-11.0 [facility] Comment on above: Performed By: #### A FPMAT #### [facility] [address] [place] [address] Dr. Evita Carrington CULTURE URINEon 08-22-2021 CULTURE URINE Culture Observations: LIGHT GROWTH OF MIXED GENITAL DONALD. NO POTENTIAL PATHOGENS SEEN. Normal [facility] Comment on above: Performed By: #### C BC #### [facility] [address] [place] [address] Dr. Evita Carrington GLYCOHEMOGLOBIN A1Con 2021 ADA RECOMMENDATION SEE BELOW Normal [facility] Comment on above: Result Comment: ADA RECOMMENDED LIMIT 4.0 - 6.0 ADA THERAPEUTIC TARGET < 7.0 ACTION SUGGESTED > 7.0 Performed By: #### A FPMAT #### [facility] [address] [place] [address] Dr. Evita Carrington Glucose [Mass/Vol] 103 mg/dL Normal [facility] Comment on above: Performed By: #### A FPMAT #### [facility] [address] [place] [address] Dr. Evita Carrington HbA1c (Bld) [Mass fraction] 5.2 % Normal 4.5-6.2 [facility] Comment on above: Performed By: #### A FPMAT #### [facility] [address] [place] [address] Dr. Evita Carrington LORAINE BOX TEST PT SEND OUTo n 08-22-2021 SENT TO REF LAB 08/22/2021 Normal [facility] Comment on above: Performed By: #### C BC #### [facility] [address] [place] [address] Dr. Evita Carrington TYPE AND SCREENon 08-22-2021 TYPE AND SCREEN Negative Normal [facility] Comment on above: Performed By: #### T NS #### [facility] [address] [place] [address] Dr. Evita Carrington Vital Signs Date Time Vital Sign Value Performing Clinician Facility 08-28-2023 18:21-0400 Body height 167.64 cm MD Dai Roberson Work Phone: [facility] 08-28-2023 18:21-0400 Body mass index (BMI) [Ratio] 25.4 kg/m2 MD Dai Roberson Work Phone: [facility] 08-28-2023 18:21-0400 Body temperature 98.3 [degF] MD Dai Roberson Work Phone: [facility] 08-28-2023 18:21-0400 Body weight 71.66 kg MD Dai Roberson Work Phone: [facility] 08-28-2023 18:21-0400 Diastolic blood pressure 70 mm[Hg] MD Dai Roberson Work Phone: [facility] 08-28-2023 18:21-0400 Heart rate 71 /min MD Dai Roberson Work Phone: [facility] 08-28-2023 18:21-0400 Respiratory rate 18 /min MD Dai Roberson Work Phone: [facility] 08-28-2023 18:21-0400 SaO2% (BldA) [Mass fraction] 97 % MD Dai Roberson Work Phone: [facility] 08-28-2023 18:21-0400 Systolic blood pressure 107 mm[Hg] MD Dai Roberson Work Phone: [facility] 06-15-2023 10:39-0400 Body height 167.64 cm MD Dai Roberson Work Phone: [facility] 06-15-2023 10:39-0400 Body mass index (BMI) [Ratio] 26.6 kg/m2 MD Dai Roberson Work Phone: [facility] 06-15-2023 10:39-0400 Body temperature 97.5 [degF] MD Dai oRberson Work Phone: [facility] 06-15-2023 10:39-0400 Body weight 74.95 kg MD Dai Roberson Work Phone: [facility] 06-15-2023 10:39-0400 Diastolic blood pressure 69 mm[Hg] MD Dai Roberson Work Phone: [facility] 06-15-2023 10:39-0400 Heart rate 55 /min MD Dai Roberson Work Phone: [facility] 06-15-2023 10:39-0400 Respiratory rate 16 /min MD Dai Roberson Work Phone: [facility] 06-15-2023 10:39-0400 SaO2% (BldA) [Mass fraction] 99 % MD Dai Roberson Work Phone: [facility] 06-15-2023 10:39-0400 Systolic blood pressure 116 mm[Hg] MD Dai Roberson Work Phone: [facility] 01-08-2023 13:40-0400 Body height 167.64 cm Maegan Vel Other [facility] Other 01-08-2023 13:40-0400 Body mass index (BMI) [Ratio] 27.27 kg/m2 Maegan Vel Other [facility] Other 01-08-2023 13:40-0400 Body weight 76.66 kg Maegan Vel Other [facility] Other 01-08-2023 13:40-0400 Diastolic blood pressure 78 mm[Hg] Maegan Vel Other [facility] Other 01-08-2023 13:40-0400 SaO2% (BldA) [Mass fraction] 98 % Maegan Vel Other [facility] Other 01-08-2023 13:40-0400 Systolic blood pressure 122 mm[Hg] Maegan Vel Other [facility] Other 12-27-2022 10:45-0400 Body height 167.64 cm Dai Roberson Other [facility] Other 12-27-2022 10:45-0400 Body mass index (BMI) [Ratio] 27.27 kg/m2 Dai Roberson Other [facility] Other 12-27-2022 10:45-0400 Body weight 76.66 kg Dai Roberson Other [facility] Other 12-27-2022 10:45-0400 Diastolic blood pressure 64 mm[Hg] Dai Roberson Other [facility] Other 12-27-2022 10:45-0400 Systolic blood pressure 109 mm[Hg] Dai Roberson Other [facility] Other 10-29-2022 14:45-0400 Body height 167.64 cm Dai Roberson Other [facility] Other 10-29-2022 14:45-0400 Body mass index (BMI) [Ratio] 31.63 kg/m2 Dai Roberson Other [facility] Other 10-29-2022 14:45-0400 Body weight 88.91 kg Dai Roberson Other [facility] Other 10-29-2022 14:45-0400 Diastolic blood pressure 75 mm[Hg] Dai Roberson Other [facility] Other 10-29-2022 14:45-0400 Systolic blood pressure 111 mm[Hg] Dai Roberson Other [facility] Other 10-03-2022 14:30-0400 Body height 167.64 cm Dai Roberson Other [facility] Other 10-03-2022 14:30-0400 Body mass index (BMI) [Ratio] 29.53 kg/m2 Dai Roberson Other [facility] Other 10-03-2022 14:30-0400 Body weight 83.01 kg Dai Roberson Other [facility] Other 10-03-2022 14:30-0400 Diastolic blood pressure 58 mm[Hg] Dai Roberson Other [facility] Other 10-03-2022 14:30-0400 SaO2% (BldA) [Mass fraction] 98 % Dai Roberson Other [facility] Other 10-03-2022 14:30-0400 Systolic blood pressure 106 mm[Hg] Dai Roberson Other [facility] Other 07-01-2022 12:45-0400 Body height 167.64 cm Dai Roberson Other [facility] Other 07-01-2022 12:45-0400 Body mass index (BMI) [Ratio] 30.18 kg/m2 Dai Roberson Other [facility] Other 07-01-2022 12:45-0400 Body weight 84.82 kg Dai Roberson Other [facility] Other 07-01-2022 12:45-0400 Diastolic blood pressure 70 mm[Hg] Dai Roberson Other [facility] Other 07-01-2022 12:45-0400 SaO2% (BldA) [Mass fraction] 97 % Dai Roberson Other [facility] Other 07-01-2022 12:45-0400 Systolic blood pressure 116 mm[Hg] Dai Roberson Other [facility] Other 05-27-2022 14:10-0500 Body height 167.64 cm Alyssa Fortune Other [facility] Other 05-27-2022 14:10-0500 Body mass index (BMI) [Ratio] 30.66 kg/m2 Alsysa Fortune Other [facility] Other 05-27-2022 14:10-0500 Body temperature 98.9 [degF] Alyssa Fortune Other [facility] Other 05-27-2022 14:10-0500 Body weight 86.18 kg Alyssa Fortune Other [facility] Other 05-27-2022 14:10-0500 Diastolic blood pressure 61 mm[Hg] Alyssa Fortune Other [facility] Other 05-27-2022 14:10-0500 Respiratory rate 18 /min Alyssa Fortune Other [facility] Other 05-27-2022 14:10-0500 SaO2% (BldA) [Mass fraction] 98 % Alyssa Fotrune Other [facility] Other 05-27-2022 14:10-0500 Systolic blood pressure 117 mm[Hg] Alyssa Fortune Other [facility] Other 04-24-2022 11:10-0500 Body height 173.99 cm LEONIDAS SKINNER Other [facility] Other 04-24-2022 11:10-0500 Body mass index (BMI) [Ratio] 29.78 kg/m2 LEONIDAS NELIA Other [facility] Other 04-24-2022 11:10-0500 Body weight 90.18 kg LEONIDAS NELIA Other [facility] Other 04-24-2022 11:10-0500 Body weight 90.17 kg LEONIDAS NELIA Other [facility] Other 04-24-2022 11:10-0500 Diastolic blood pressure 70 mm[Hg] LEONIDAS NELIA Other [facility] Other 04-24-2022 11:10-0500 Systolic blood pressure 120 mm[Hg] LEONIDAS NELIA Other [facility] Other 03-06-2022 12:00-0500 Body height 173.99 cm LEONIDAS NELIA Other [facility] Other 03-06-2022 12:00-0500 Body mass index (BMI) [Ratio] 32.57 kg/m2 LEONIDAS NELIA Other [facility] Other 03-06-2022 12:00-0500 Body weight 98.61 kg LEONIDAS NELIA Other [facility] Other 03-06-2022 12:00-0500 Diastolic blood pressure 74 mm[Hg] LEONIDAS NELIA Other [facility] Other 03-06-2022 12:00-0500 Systolic blood pressure 100 mm[Hg] LEONIDAS NELIA Other [facility] Other 02-26-2022 15:10-0500 Body height 173.99 cm LEONIDAS NELIA Other [facility] Other 02-26-2022 15:10-0500 Body mass index (BMI) [Ratio] 32.33 kg/m2 LEONIDAS NELIA Other [facility] Other 02-26-2022 15:10-0500 Body weight 97.89 kg LEONIDAS NELIA Other [facility] Other 02-26-2022 15:10-0500 Diastolic blood pressure 78 mm[Hg] LEONIDAS NELIA Other [facility] Other 02-26-2022 15:10-0500 Systolic blood pressure 116 mm[Hg] LEONIDAS NELIA Other [facility] Other 02-19-2022 11:00-0500 Body height 173.99 cm BUHMIKA MARSH Other [facility] Other 02-19-2022 11:00-0500 Body mass index (BMI) [Ratio] 31.91 kg/m2 BHUMIKA MARSH Other [facility] Other 02-19-2022 11:00-0500 Body weight 96.62 kg BHUMIKA MARSH Other [facility] Other 02-19-2022 11:00-0500 Diastolic blood pressure 72 mm[Hg] BHUMIKA MARSH Other [facility] Other 02-19-2022 11:00-0500 Systolic blood pressure 120 mm[Hg] BHUMIKA MARSH Other [facility] Other 02-12-2022 11:00-0500 Body height 173.99 cm LEONIDAS SKINNER Other [facility] Other 02-12-2022 11:00-0500 Body mass index (BMI) [Ratio] 32.03 kg/m2 LEONIDAS SKINNER Other [facility] Other 02-12-2022 11:00-0500 Body weight 96.98 kg LEONIDAS SKINNER Other [facility] Other 02-12-2022 11:00-0500 Diastolic blood pressure 84 mm[Hg] LEONIDAS SKINNER Other [facility] Other 02-12-2022 11:00-0500 Systolic blood pressure 120 mm[Hg] LEONIDAS SKINNER Other [facility] Other 11-04-2021 02:06-0400 Body weight 81.[address] LEONIDAS SKINNER . [facility] Comment on above: Performed By: #### AFPMAT #### [facility] [address] [place] [address] Dr. Evita Carrington 03-29-2021 14:15-0500 Body height 173.99 cm DEVANTE YUAN Other [facility] Other 03-29-2021 14:15-0500 Body mass index (BMI) [Ratio] 26.61 kg/m2 DEVANTE YUAN Other [facility] Other 03-29-2021 14:15-0500 Body weight 80.56 kg DEVANTE YUAN Other [facility] Other 03-29-2021 14:15-0500 Diastolic blood pressure 78 mm[Hg] DEVANTE YUAN Other [facility] Other 03-29-2021 14:15-0500 Systolic blood pressure 120 mm[Hg] DEVANTE YUAN Other [facility] Other Encounters Encounter Date Encounter Type Care Provider Facility Start: 08-28-2023 End: 08-28-2023 ambulatory MD Dai Roberson Work Phone: [facility] Work Phone: Start: 08-28-2023 End: 08-28-2023 Patient encounter procedure MD Dai Roberson Work Phone: [facility] Work Phone: Start: 08-04-2023 End: 08-04-2023 ambulatory BHUMIKA MARSH Not Available Start: 08-04-2023 Non-patient / Non-visit MD Dai Roberson Work Phone: [facility] Work Phone: Start: 06-15-2023 End: 06-15-2023 ambulatory Arely Lentz Facility:[facility] Start: 06-15-2023 End: 06-15-2023 ambulatory MD Dai Roberson Work Phone: [facility] Work Phone: Start: 06-15-2023 End: 06-15-2023 Patient encounter procedure MD Dai Roberson Work Phone: [facility] Work Phone: Start: 03-05-2023 End: 03-05-2023 ambulatory Maegan Crowder Other [facility] Other Start: 03-05-2023 Telephone encounter Maegan Crowder [facility] Start: 01-23-2023 End: 01-23-2023 ambulatory Dai Roberson Facility:[facility] Start: 01-22-2023 End: 01-22-2023 ambulatory Maegan Crowder Other [facility] Other Start: 01-22-2023 Telephone encounter Maegan Hindsge [facility] Start: 01-09-2023 End: 01-09-2023 ambulatory Maegan Hindsge Other [facility] Other Start: 01-09-2023 Telephone encounter Maegan Hindsge [facility] Start: 01-08-2023 End: 01-08-2023 ambulatory Maegan Crowder Other [facility] Other Start: 01-08-2023 Office outpatient ne w 30 minutes Maegan Sharmaoroge [facility] Start: 01-08-2023 Telephone encounter Dai Roberson [facility] Start: 12-27-2022 End: 12-27-2022 ambulatory Dai Roberson Other [facility] Other Start: 12-27-2022 Office outpatient visit 15 minutes Dai Roberson [facility] Start: 12-05-2022 End: 12-05-2022 ambulatory Dai Roberson Other [facility] Other Start: 12-05-2022 Telephone encounter Dai Roberson [facility] Start: 10-29-2022 End: 10-29-2022 ambulatory Dai Roberson Other [facility] Other Start: 10-29-2022 Office outpatient visit 15 minutes Dai Roberson [facility] Start: 10-03-2022 End: 10-03-2022 ambulatory Dai Roberson Other [facility] Other Start: 10-03-2022 Office outpatient visit [address] [facility] Start: 08-15-2022 End: 08-15-2022 ambulatory Dai Roberson Other [facility] Other Start: 08-15-2022 Telephone encounter Dai Karol [facility] Start: 08-09-2022 ambulatory Robb Mcnamara acility:[facility] Start: 08-01-2022 End: 08-01-2022 ambulatory BHUMIKA VILLANUEVAEY . Facility:[facility] Start: 07-25-2022 End: 07-25-2022 ambulatory Dai Roberson Other [facility] Other Start: 07-25-[address] [facility] Start: 07-01-2022 End: 07-01-2022 ambulatory Dai Roberson Other [facility] Other Start: 07-01-2022 Office outpatient visit [address] [facility] Start: 05-27-2022 End: 05-27-2022 ambulatory Alyssa Fortune Other [facility] Other Start: 05-27-2022 Office outpatient visit 15 minutes Alyssa Fortune [facility] Start: 04-24-2022 (PP) Post Visit LEONIDAS Seth [address] Start: 04-24-2022 End: 04-24-2022 ambulatory LEONIDAS SKINNER Other [facility] Other Start: 03-12-2022 End: 03-13-2022 Evaluation and management of inpatient DR LEONIDAS SKINNER . Facility:[facility] Start: 03-06-2022 ([facility]) [facility] LEONIDAS [place] [address] Start: 03-06-2022 End: 03-06-2022 ambulatory LEONIDAS SKINNER Other [facility] Other Start: 03-02-2022 End: 03-02-[address] MAXIMO RUANO . Facility:[facility] Start: 02-26-2022 ([facility]) [facility] LEONIDAS [place] [address] Start: 02-26-2022 End: 02-26-2022 ambulatory LEONIDAS SKINNER Other [facility] Other Start: 02-19-2022 ([facility]) [facility] BHUMIKA [place] 1 02 [address] Start: 02-19-2022 End: 02-19-2022 ambulatory BHUMIKA MARSH Other [facility] Other Start: 02-12-2022 ([facility]) [facility] LEONIDAS [place] [address] 02 [address] Start: 02-12-2022 End: 02-12-[address] LEONIDAS SKINNER . [facility] Other Start: 02-11-2022 End: 02-12-[address] LEONIDAS SKINNER . Facility:[facility] Start: 01-31-2022 End: 01-31-2022 ambulatory LEONIDAS SKINNER Other [facility] Other Start: 01-31-2022 Telephone encounter LEONIDAS alonso 102 [address] Start: 12-03-2021 End: 12-04-2021 ambulatory [...] 03-29-2021 End: 03-29-2021 ambulatory DEVANTE YUAN Other [facility] Other Start: 03-07-2021 End: 03-07-2021 ambulatory DEVANTE YUAN Other [facility] Other Start: 03-07-2021 Telephone encounter [facility]ANTE YUAN [facility] Start: 02-27-2021 (PROC) Procedure DEVANTE YUAN [facility] Start: 02-27-2021 End: 02-27-2021 ambulatory DEVANTE YUAN Other [facility] Other Start: 02-26-2021 (PNC) PN DEVANTE YUAN [place] [address] Start: 02-26-2021 End: 02-26-2021 ambulatory UNKNOWN [facility] Start: 02-26-2021 Encounter by compute r link UNKNOWN [facility] [place] [address] Start: 02-19-2021 (PN) [facility] DEVANTE Rend[place] [address] Start: 02-19-2021 End: 02-19-2021 ambulatory DEVANTE YUAN Other [facility] Other Start: 02-12-2021 (PNC) PN DEVANTE YUAN [place] [address] Start: 02-12-2021 End: 02-12-2021 ambulatory DEVANTE YUAN Other [facility] Other Start: 02-05-2021 (PN) [facility] DEVANTE YUAN [place] [address] Start: 02-05-2021 End: 02-05-2021 ambulatory DEVANTE VISCI Other [facility] Other Start: 01-29-2021 ([facility]) [facility] DEVANTE VISCI [place] [address] Start: 01-29-2021 End: 01-29-2021 ambulatory DEVANTE VISCI Other [facility] Other Start: 01-24-2021 (OB over 14) OB over 14 weeks DEVANTE VISCI [place] [address] Start: 01-24-2021 ([facility]) [facility] DEVANTE VISCI [place] [address] Start: 01-24-2021 End: 01-24-2021 ambulatory DEVANTE VISCI Other [facility] Other Start: 01-15-2021 ([facility]) [facility] BAUDILIO Mcgovern 2 500 210 Start: 01-15-2021 End: 01-15-2021 ambulatory BAUDILIO CHACON Other [facility] Other Start: 01-08-2021 End: 01-08-2021 ambulatory DEVANTE VISCI Other [facility] Other Start: 01-08-2021 Telephone encounter DEVANTE VISCI [place] [address] Start: 01-05-2021 End: 01-05-2021 ambulatory DEVANTE VISCI Other [facility] Other Start: 01-05-2021 Telephone encounter DEVANTE VISCI [place] [address] Start: 01-01-2021 ([facility]) [facility] DEVANTE VISCI [place] [address] Start: 01-01-2021 End: 01-01-2021 ambulatory DEVANTE VISCI Other [facility] Other Start: 12-18-2020 ([facility]) [facility] DEVANTE VISCI [place] [address] Start: 12-18-2020 End: 12-18-2020 ambulatory DEVANTE VISCI Other [facility] Other Start: 12-04-2020 ([facility]) [facility] DEVANTE VISCI [place] [address] Start: 12-04-2020 End: 12-04-2020 ambulatory DEVANTE VISCI Other [facility] Other Start: 11-28-2020 End: 11-28-2020 ambulatory DEVANTE VISCI Other [facility] Other Start: 11-28-2020 Telephone encounter DEVANTE RICKSI [place] [address] Start: 11-23-2020 End: 11-23-2020 ambulatory DEVANTE VISCI Other [facility] Other Start: 11-23-2020 Telephone encounter DEVANTE RAMBOI [place] [address] Start: 11-06-2020 ([facility]) [facility] DEVANTE VISCI [place] [address] Start: 11-06-2020 End: 11-06-2020 ambulatory DEVANTE VISCI Other [facility] Other Start: 10-29-2020 End: 10-29-2020 ambulatory DEVANTE VISCI Other [facility] Other Start: 10-29-2020 Encounter by janelle r abdias DEVANTE VISCI [place] [address] Start: 10-09-2020 (OB over 14) OB over 14 weeks DEVANTE VISCI [place] [address] Start: 10-09-2020 ([facility]) [facility] DEVANTE VISCI [place] [address] Start: 10-09-2020 End: 10-09-2020 ambulatory DEVANTE VISCI Other [facility] Other Start: 10-06-2020 End: 10-06-2020 ambulatory UNKNOWN [facility] Start: 10-06-2020 Encounter by compute r link UNKNOWN [facility] [place] [address] Start: 09-20-2020 End: 09-20-2020 ambulatory DEVANTE RICKSI Other [facility] Other Start: 09-20-2020 Telephone encounter DEVANTE RICKSI [place] [address] Start: 09-04-2020 (PNC) PNC DEVANTE RAMBOI [place] [address] Start: 09-04-2020 End: 09-04-2020 ambulatory DEVANTE RAMBOI Other [facility] Other Start: 08-11-2020 (OB over 14) OB over 14 weeks DEVANTE RAMBOI [place] [address] Start: 08-11-2020 End: 08-11-2020 ambulatory DEVANTE RAMBOI Other [facility] Other Start: 08-01-2020 End: 08-01-2020 ambulatory UNKNOWN NOMS [facility] Start: 08-01-2020 Encounter by compute r link UNKNOWN [facility] [place] [address] Start: 07-04-2020 End: 07-04-2020 ambulatory UNKNOWN NOMS [facility] Start: 07-04-2020 Encounter by compute r link UNKNOWN [facility] [place] [address] Start: 07-04-2020 Telephone encounter DEVANTE RICKSI [place] [address] Start: 06-26-2020 End: 06-26-2020 ambulatory DEVANTE RAMBOI Other [facility] Other Start: 06-26-2020 Telephone encounter DEVANTE RICKSI [place] [address] Procedures Date Procedure Procedure Detail Performing Clinician Start: 08-28-2023 Quick Strep (POC) MD Brannon Roberson Work Phone: Start: 06-15-2023 Plain X-ray of right shoulder [...] Detail Author XR Shoulder - right Views [facility] Immunizations Immunization Date Immunization Notes Care Provider Fa cility NEGATED: Highlighted row has not occurred!02-27-2021 tetanus toxoid, reduced diphtheria toxoid, and acellular pertussis vaccine, adsorbed MD Dai Roberson Work Phone: [facility] Payers Date Payer Category Payer Private Health Insurance [id number] 2022 Self-pay [id number] 1995 Unknown [id number] [id number]. 593 1995 Unknown [id number] 2.16.840.1.004548.3.579.2. 593 1995 Unknown [id number] 2.16.840.1.952288.3.579.2. 593 1995 Unknown [id number] 2.16.840.1.730629.3.579.2. 593 1995 Unknown [id number] 2.16.840.1.029264.3.579.2. 593 1995 Unknown [id number] 2.16.840.1.015136.3.579.2. 593 1995 Unknown [id number] 2.16.840.1.160918.3.579.2. 593 1995 Unknown [id number] 2.16.840.1.575691.3.579.2. 593 1995 Unknown [id number] 2.16.840.1.048820.3.579.2. 593 1995 Unknown [id number] 2.16.840.1.205108.3.579.2. 593 1995 Unknown [id number] 2.16.840.1.708154.3.579.2. 1259 1959 Self-pay [id number] 1959 Unknown [id number] [id number] 1959 Unknown [id number] Private Health Insurance [facility] [id number] Unknown [id number] 2.16.840.1.327011.3.579.2. 593 Unknown [id number] 2.16.840.1.928268.3.579.2. 531 Unknown [id number] 2.16.840.1.060605.3.579.2. 531 Unknown [id number] 2.16.840.1.272653.3.579.2. 531 Social History Date Type Detail Facility Unknown if ever smoked [facility] Sex Assigned At Sex Assigned At Bir th [facility] Start: 06-15-2023 Tobacco smoking stat [facility] Never smoked tobacco (finding) [facility] Start: 1995 Sex Assigned At Female F [facility] Clinical Notes 07-04-2020 to 01-08-2023 Note [...] and cardioinhibitory syncope-Will follow-up in 4 weeks. [facility] Other 10-18-2023 Evaluation note* Encounter Date Diagnosis Assessment Notes Treatment Notes Treatment Clinical Notes Dec, Adult attention deficit disorder (ICD-10 - F98.8) [facility] Other 10-06-2023 Evaluation note* Encounter Date Diagnosis Assessment Notes Treatment Notes Treatment Clinical Notes Dec, Syncope and collapse (ICD-10 - R55) Malini denies recent illness and symptoms c/w vertigo. Doubts possiblity of dehydration. 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 Malini agrees to referral to Cardiology and echo. She is feeling ok today, just mildly tired from being up in the night. Malini understands to go to ER/call EMS if symptoms recur. [facility] Other 09-14-2023 Evaluation note* Encounter Date Diagnosis Assessment Notes Treatment Notes Treatment Clinical Notes Nov, Adult attention deficit disorder (ICD-10 - F98.8) [facility] Other 08-08-2023 Evaluation note* Encounter Date Diagnosis Assessment Notes Treatment Notes Treatment Clinical Notes Oct, Poison herminio dermatitis (ICD-10 - L23.7) Take medications as directed. Complete all doses. Wash all belongings that came in contact with plant oils. May continue to use Calamine lotion. Patient verbalized understanding and agreement with treatment plan. [facility] Other 07-13-2023 Evaluation note* Encounter Date Diagnosis Assessment Notes Treatment Notes Treatment Clinical Notes Sep, Anxiety (ICD-10 - F41.9) notes adverse side effects w ssris and buspar. d/c medication. Sep, Adult attention deficit disorder (ICD-10 - F98.8) Watch for possible use of med for alertness rather than concentration; consider attempt at reduction after a few months. Call if problem. [facility] Other 05-04-2023 Evaluation note* Encounter Date Diagnosis Assessment Notes Treatment Notes Treatment Clinical Notes July, Persistent depressive disorder (ICD-10 - F34.1) [facility] Other 04-10-2023 Evaluation note* Encounter Date Diagnosis Assessment Notes Treatment Notes Treatment Clinical Notes Jun, Anxiety (ICD-10 - F41.9) Stop Zoloft start BuSpar. Patient does seem to be in normal mood presently question if medication needed at all. She will trial this and see if it is helpful . if she has significant side effects etc. she will likely just discontinue medication. [facility] Other 03-06-2023 Evaluation note* Encounter Date Diagnosis [...] care provider if no improvement of symptoms. [facility] Other 02-01-2023 Evaluation note* Encounter Date Diagnosis [...] to return for annual unless needed sooner. [facility] Other 12-14-2022 Evaluation note* Encounter Date Diagnosis Assessment Notes Treatment Notes Treatment Clinical Notes Feb, (ICD-10 - Z33.1) Pt doing well with complaints of being tired, d/t . Pt desires induction- consents signed. Pt will discuss with induction 03/07/22 or 03/12/22- report to [facility] at 0500. Pt verbalizes frequent movement. labor precautions given, fkc tid. Pt to return in 6 weeks for scheduled 6 week . Documented on behalf of Leonidas Skinner D.O. by Linsey Riggs LPN [facility] Other 12-06-2022 Evaluation note* Encounter Date Diagnosis Assessment Notes Treatment Notes Treatment Clinical Notes Feb, (ICD-10 - Z33.1) [facility] Other 11-29-2022 Evaluation note* Encounter Date Diagnosis Assessment Notes Treatment Notes Treatment Clinical Notes Jan, (ICD-10 - Z33.1) Pt doing well with complaints of being tired, d/t . Pt verbalizes frequent movement. labor precautions given, fkc tid. Pt to return in 1 week for scheduled OB appt. ABDIFATAH Arnold [facility] Other 11-22-2022 Evaluation note* Encounter Date Diagnosis Assessment Notes Treatment Notes Treatment Clinical Notes Jan, (ICD-10 - Z33.1) Jan, STD exposure (ICD-10 - Z20.2) Jan, Vaginal discharge (ICD-10 - N89.8) [facility] Other 01-06-2022 Evaluation note* [...] decisions I made. Signature: Devante Yuan DO [facility] Other 12-06-2021 Evaluation note* Encounter Date Diagnosis Assessment Notes Treatment Notes Treatment Clinical Notes Feb, 40 weeks gestation of (ICD-10 - Z3A.40) Feb, Rh negative status during (ICD-10 - O09.899) Feb, Obesity affecting in third trimester (ICD-10 - O99.213) Feb, related conditions, unspecified, third trimester (ICD-10 - O26.93) Feb, Excessive weight gain during in third trimester (ICD-10 - O26.03) [facility] Other 11-29-2021 Evaluation note* Encounter Date Diagnosis Assessment Notes Treatment Notes Treatment Clinical Notes Jan, 39 weeks gestation of (ICD-10 - Z3A.39) Jan, Rh negative status during (ICD-10 - O09.899) Jan, Obesity affecting in third trimester (ICD-10 - O99.213) Jan, related conditions, unspecified, third trimester (ICD-10 - O26.93) Jan, Excessive weight gain during in third trimester (ICD-10 - O26.03) [facility] Other 11-22-2021 Evaluation note* Encounter Date Diagnosis Assessment Notes Treatment Notes Treatment Clinical Notes Jan, Rh negative status during (ICD-10 - O09.899) Jan, Obesity affecting in third trimester (ICD-10 - O99.213) Jan, related conditions, unspecified, third trimester (ICD-10 - O26.93) Jan, Excessive weight gain during in third trimester (ICD-10 - O26.03) Jan, 38 weeks gestation of (ICD-10 - Z3A.38) [facility] Other 11-15-2021 Evaluation note* Encounter Date Diagnosis Assessment Notes Treatment Notes Treatment Clinical Notes Jan, 37 weeks gestation of (ICD-10 - Z3A.37) Jan, Rh negative status during (ICD-10 - O09.899) Jan, Obesity affecting in third trimester (ICD-10 - O99.213) Jan, related conditions, unspecified, third trimester (ICD-10 - O26.93) Jan, Excessive weight gain during in third trimester (ICD-10 - O26.03) [facility] Other 11-08-2021 Evaluation note* Encounter Date Diagnosis Assessment Notes Treatment Notes Treatment Clinical Notes Jan, 36 weeks gestation of (ICD-10 - Z3A.36) Jan, Rh negative status during (ICD-10 - O09.899) Jan, Obesity affecting in third trimester (ICD-10 - O99.213) Jan, related conditions, unspecified, third trimester (ICD-10 - O26.93) Jan, Excessive weight gain during in third trimester (ICD-10 - O26.03) [facility] Other 11-03-2021 Evaluation note* Encounter Date Diagnosis Assessment Notes Treatment Notes Treatment Clinical Notes Jan, 36 weeks gestation of (ICD-10 - Z3A.36) Jan, Rh negative status during (ICD-10 - O09.899) Jan, Obesity affecting in third trimester (ICD-10 - O99.213) [facility] Other 11-03-2021 Evaluation note* Encounter Date Diagnosis Assessment Notes Treatment Notes Treatment Clinical Notes Jan, related conditions, unspecified, third trimester (ICD-10 - O26.93) Jan, Excessive weight gain during in third trimester (ICD-10 - O26.03) [facility] Other 10-25-2021 Evaluation note* Encounter Date Diagnosis Assessment Notes Treatment Notes Treatment Clinical Notes Dec, 34 weeks gestation of (ICD-10 - Z3A.34) Dec, Rh negative status during (ICD-10 - O09.899) [facility] Other 10-11-2021 Evaluation note* Encounter Date Diagnosis Assessment Notes Treatment Notes Treatment Clinical Notes Dec, 32 weeks gestation of (ICD-10 - Z3A.32) Dec, Rh negative status during (ICD-10 - O09.899) [facility] Other 09-27-2021 Evaluation note* Encounter Date Diagnosis Assessment Notes Treatment Notes Treatment Clinical Notes Nov, 30 weeks gestation of (ICD-10 - Z3A.30) Nov, Rh negative status during (ICD-10 - O09.899) [facility] Other 09-13-2021 Evaluation note* Encounter Date Diagnosis Assessment Notes Treatment Notes Treatment Clinical Notes Nov, Rh negative status during (ICD-10 - O09.899) Nov, 28 weeks gestation of (ICD-10 - Z3A.28) [facility] Other 09-07-2021 Evaluation note* Encounter Date Diagnosis Assessment Notes Treatment Notes Treatment Clinical Notes Nov, Rh negative status during (ICD-10 - O09.899) [facility] Other 08-16-2021 Evaluation note* Encounter Date Diagnosis Assessment Notes Treatment Notes Treatment Clinical Notes Oct, 24 weeks gestation of (ICD-10 - Z3A.24) Oct, Rh negative status during (ICD-10 - O09.899) [facility] Other 07-19-2021 Evaluation note* Encounter Date Diagnosis Assessment Notes Treatment Notes Treatment Clinical Notes Sep, related conditions, unspecified, second trimester (ICD-10 - O26.92) [facility] Other 07-19-2021 Evaluation note* Encounter Date Diagnosis Assessment Notes Treatment Notes Treatment Clinical Notes Sep, 20 weeks gestation of (ICD-10 - Z3A.20) [facility] Other 06-14-2021 Evaluation note* Encounter Date Diagnosis Assessment Notes Treatment Notes Treatment Clinical Notes Aug, 15 weeks gestation of (ICD-10 - Z3A.15) Aug, Encounter for care of first , antepartum, first trimester (ICD-10 - Z34.01) [facility] Other 05-21-2021 Evaluation note* Encounter Date Diagnosis Assessment Notes Treatment Notes Treatment Clinical Notes July, Other specified related conditions, first trimester (ICD-10 - O26.891) July, 12 weeks gestation of (ICD-10 - Z3A.12) [facility] Other 04-13-2021 Evaluation note* Encounter Date Diagnosis Assessment Notes Treatment Notes Treatment Clinical Notes Jun, Encounter for care of first , antepartum, first trimester (ICD-10 - Z34.01) [facility] Other evaluation noteNo [facility]* Diagnosis Onset Date Resolution Status Fall noneactive Contusion of right shoulder noneactive [facility] Work Phone: Evaluation note* Diagnosis Onset Date Resolution Status Fall noneactive Contusion of right shoulder noneactive Sore throat noneactive [facility] Work Phone: History general Narrative - Reported* Type Description Date Medical History Anxiety Medical History Anemia Medical History Heartburn in Medical History Dyspareunia Hospitalization History no [facility] ([facility])History general Narrative - Reported* Type Description Date Medical History Anemia Medical History Anxiety Alai Other Summary Purpose Family History Relationship Condition Age at Onset Recorded Date/T hortensia grandparent Malignant neoplasm of lung Unknown Advance Directives Advance Directive Response Recorded Date/ Time Advance Directives No November 07, 2020 4:08pm Reason for Referral Reason [employer] - syncopal episode at home. EKG and echo pending. Diagnosis 1 Syncope and collapse (R55) Referral Organization [facility] Referring Provider First Name Dai Referring Provider Last Name Karol Referring Provider Specialty Family [facility] cine Referred Organization [facility] Cardiology Referred Provider Maegan Crowder Referred Address [address],[place],[id number] Referred Provider Specialty Cardiovascul ar Disease Referral Priority Routine General Notes Bela Rivera 12:56:59 PM >received today,sent P2P pedning testing Reason *FU 08/02 Last OV, phone note. Had two pregnancies and two healthy babies in the last less than2 years. Depression, anxiety. Hasn't had good results with typical rx's. Diagnosis 1 Persistent depressiv e disorder (F34.1) Referral Organization [facility] Referring Provider First Name Dai Referring Provider Last Name Karol Referring Provider Specialty Family [facility] Referred Organization [facility] [place] Referred Provider Alivia Dawson Referred Address [address] [place],[address] Referred Provider Specialty Psychiatry Referral Priority Routine General Notes Jessica Dudley 023 09:13:26 AM >Received today and filled form out and fax to [facility] [place] Bela Rivera 07/29/2022 12:33:10 PM >received TE that pt got a new number, send new form to [place] with updated number Clinical Notes Office [phone] Chief Complaint and Reason for Visit Chief Complaint right shoulder injur y from fall Reason for Visit Fall Contusion of right shoulder Chief Complaint right shoulder injur y from fall W19.XXXA Sore throat Reason for Visit Fall Contusion of right shoulder Sore throat Additional Source Comments INFORMATION SOURCE (unrecogn ized section and content) DATE CREATED AUTHOR [facility]/18/2021 [facility] DATE CREATED AUTHOR AUTHOR'S ORGANIZ ATION 08/04/2022 [facility] [place] [facility] DATE CREATED AUTHOR AUTHOR'S ORGANIZ ATION 06/16/2023 [facility] DATE CREATED AUTHOR AUTHOR'S ORGANIZ ATION 08/05/2023 [facility] EPIC REASON FOR VISIT (unrecogniz ed section and [...] possibly passing out ??REFERRED BY DR. DAI ROBEROSN FOR SYNCOPE AND COLLAPSERefillCARDIO NOTESneeds orderClinicallab results [...] June 15, 2023 End: June 15, 2023 Team Status: Active Member Role Status Dates Dai Roberson MD Primary Care Provider Active Start: August 04, 2023 Bhumika Marsh PA-C Attending Provider Active Start : August 04, 2023 Team Status: Inactive Member Role Status Dates Dai Roberson MD Primary Care Provider Active Start: August 28, 2023 End: August 28, 2023 Debora Curran APRN Attending Provider Active S tart: August 28, 2023 End: August 28, 2023 Goals (unrecognized section and content) Goals [...] BE BASED ON THE PRIMARY CLINICAL RECORDS. [facility]. provides no warranty or guarantee of the accuracy or completeness of information in this document.
== END 2023-09-15 21:31 | disposition home or self-care (01) ==
LOC: LAB 21:30
PROVIDERS: PCP Family Medicine; Visit Provider Obstetrics & Gynecology
DX: Z01.419 Encounter for gynecological examination (general) (routine) without abnormal findings (principal)
CPT/HCPCS: 88175

== ENCOUNTER 2024-05-18 11:10 | Outpatient (OUT) | payer OTHER, SELFPAY ==
--- OUTSIDE RECORDS SUMMARY | 2024-05-18 11:26 | XMS_ITS | CCD ---
Author Organization [facility] Care Team Providers Care Project Estimator Name Role Phone KAMRYN YUAN Unavailable NOMS, UNKNOWN Unavailable Unavailable INESBAUDILIO Unavailable JOE SKINNER Unavailable BHUMIKA LICEA Unavailable Alyssa Fortune Unavailable Tony Roberson Unavailable NELIA ., DR LAUREN Consulting Unavailable REQUEST, NONE LISTED Primary Care Unavaila ble NELIA ., DR LAUREN Attending Unavailable NELIA ., DR LAUREN Admitting Unavailable ZIEBER, DR TRINO Bonilla Consulting Unavailable NELIA ., DR LAUREN Consulting Unavailable ROBERSON, DR TONY Hernandez Primary Care Unavailable NELIA ., DR LAUREN Attending Unavailable NELIA ., DR LAUREN Admitting Unavailable NELIA ., DR LAUREN Consulting Unavailable REQUEST, NONE LISTED Primary Care Unavaila ble NELIA ., DR LAUREN Attending Unavailable NELIA ., DR LAUREN Admitting Unavailable NELIA ., DR LAUREN Consulting Unavailable ROBERSON, DR TONY Hernandez Primary Care Unavailable NELIA ., DR LAUREN Attending Unavailable NELIA ., DR LAUREN Admitting Unavailable SALMA ., BHUMIKA Consulting Unavailable KAROL, DR TONY Hernandez Primary Care Unavailable SALMA ., BHUMIKA Attending Unavailable SALMA ., BHUMIKA Admitting Unavailable NELIA ., DR LAUREN Consulting Unavailable KAROL, DR TONY Hernandez Primary Care Unavailable NELIA ., DR [...] Unavailable NELIA ., DR LAUREN Consulting [facility]available [facility] Primary Care Unavailable NELIA ., DR LAUREN Attending Unavailable NELIA ., DR LAUREN Admitting Unavailable ENLIA ., DR LAUREN Consulting Unavailable ROBERSON, DR TONY Hernandez Primary Care Unavailable NELIA ., DR LAUREN Attending Unavailable NELIA ., DR LAUREN Admitting Unavailable MICHAEL HAINES Consulting Unavailable NELIA ., DR LAUREN Procedure Practitioner Unavail able KARASIK ., DR MARSH Consulting Unavaileverett ROBERSON, DR TONY Hernandez Primary Care Unavailable NELIA ., DR LAUREN Attending Unavailable NELIA ., DR LAUREN Admitting Unavailable SCIPIO, DR GÉNESIS Mckeon Consulting Unavailable NELIA ., DR LAUREN Consulting Unavailable Maegan Crowder Unavailable MD Tony Roberson Primary Care Provider MALCOLM Lentz Attending Provider MD Tony Roberson Primary Care Provider DO Joe Skinner Attending Provider Tony Roberson Primary Care Unavailable Joe Skinner Admitting Unavailable Joe Skinner Attending Unavailable Tony Roberson Primary Care Unavailable Arely Lentz Attending Unavailable Arely Lentz Admitting Unavailable TONY ROBERSON Primary Care Physician Angelica Virk Attending Unavailable Angelica Virk Attending Unavailable Tony Roberson MD Primary Care Provider BHUMIKA LICEA Attending Unavailable BHUMIKA LICEA Attending Unavailable JOE SKINNER Attending Unavailable Allergies Allergy Classification Reported Allergen(s) Allergy Type Date of Onset Reaction(s) Facility (20 sources) Penicillin; Translations: [penicillin] Drug Allergy rash [facility] Repository (19 sources) Penicillin G Drug Allergy 4 [facility] (1 source) Penicillin G Potassium Drug allergy [facility] Other (4 sources) Penicillins; Translations: [Penicillins] Allergy to substance 4 Rash [facility] (1 source) Penicillin Drug Allergy [address] [place] [address] Repository Medications Current Medications Medication Drug Class(es) Dates Sig (Normalized) Sig (Original) 24 hr amphetamine aspartate 5 mg / amphetamine sulfate 5 mg / dextroamphetamine saccharate 5 mg / dextroamphetamine sulfate 5 mg extended release oral capsule (12 sources) Central Nervous System Stimulant Start: 12-05-2022 End: 05-13-2024 take 1 capsule by mouth once daily in the morning amphetamine-dextro amphetamine XR (Adderall XR) 20 MG 24 hr capsule TAKE 1 CAPSULE BY MOUTH EVERY DAY IN THE MORNING FOR 30 DAYS 01/25/2023 05/13/2024 Discontinued (Therapy completed) Start: 10-03-2022 take 1 capsule by [facility] every twenty-four hours Adderall XR 20 MG 1 capsule in the morning Orally Once a day for 30 days Sep, Active Azithromycin (1 source) Macrolide Antimicrobial Start: 08-28-2023 Azithromycin Active 0 PO .COMPLEX August 28, 2023 12:00am For 250 mg dose pack: take 500 mg today (day 1), then 250 mg for 4 days (days 2-5) PO busPIRone hydrochloride 10 mg oral tablet (3 sources) Start: 07-01-2022 take 1 tablet by mouth every twelve hours busPIRone HCl 10 MG 1 tablet Orally Twice a day for 30 days Jun, Active cephalexin 500 mg oral capsule (2 sources) Cephalosporin Antibacterial Start: 05-13-2024 End: 05-23-2024 take 1 capsule by mouth in the morning cephalexin (Keflex) 500 MG capsule Indications: Breast discharge Take 1 capsule (500 mg) by mouth in the morning and 1 capsule (500 mg) before bedtime. Do all this for 10 days. 20 capsule 05/13/2024 05/23/2024 Active 21 day ethinyl estradiol 0.672889 mg/hr / etonogestrel 0.005 mg/hr vaginal system (20 sources) Progestin, Estrogen Start: 04-24-2022 NuvaRing 0.12-0.015 MG/24HR [address] for 3 weeks, remove, and replace with a new ring after 7 day break Vaginal for 28 days Apr, Active ibuprofen 800 mg oral tablet (8 sources) Nonsteroidal Anti-inflammatory Drug Start: 06-15-2023 End: 05-13-2024 take 1 tablet by mouth every eight hours as needed for pain ibuprofen 800 MG tablet TAKE 1 TABLET BY MOUTH EVERY 8 HOURS NEEDED FOR PAIN FOR 7 DAYS 06/15/2023 05/13/2024 Discontinued (Therapy completed) Start: 03-01-2021 End: 08-28-2023 take 600 mg by mouth every six hours Ibuprofen Discontinued 600 MG PO Q6H 60 March 01, 2021 1:00am August 28, 2023 6:24pm naproxen 500 mg oral tablet (4 sources) Nonsteroidal Anti-inflammatory Drug Start: 04-27-2024 End: 05-13-2024 naproxen (Naprosyn) 500 MG tablet Take 500 mg by mouth 04/27/2024 05/13/2024 Discontinued predniSONE 10 mg oral tablet (2 sources) Start: 10-29-2022 predniSONE 10 MG 4 tabs po daily x 2 days, 3 tabs daily x 2 days, 2 tabs daily x 2 days, 1 tab daily x 2 days Orally Once a day for 8 Oct, Active sertraline 25 mg oral tablet (20 sources) Serotonin Reuptake Inhibitor Start: 03-15-2024 End: 05-13-2024 take 1 tablet by mouth once daily sertraline (Zoloft) 25 MG tablet Take 25 mg by mouth Daily 03/15/2024 05/13/2024 Discontinued take 1 tablet by bhargav th every twenty-four hours Zoloft 25 MG 1 tablet Orally Once a day Active Zofran ODT 4 mg Tab-Dis (1 source) Start: 04-27-2024 take 1 tablet by mouth every six hours Zofran ODT 4 mg Tab-Dis 4 mg = 1 tab(s), Oral, q6hr, # 12 tab(s), Refills(s) 0, Pharmacy: [facility]/pharmacy #[id number], 167, cm, 04/27/24 1:10:00 EST, Height/Length Dosing, 77.5, kg, 04/27/24 1:10:00 EST, Weight Dosing Start Date: 04/27/24 Status: Ordered Completed/Discontinued Medications Medication Drug Class(es) Dates Sig [...] 1 tablet by mouth every twenty-four hours 1.5/30 1.5-30 MG-MCG 1 tablet Orally Once a day Not-Taking fluticasone propionate 0.05 mg/actuat metered dose nasal spray (4 sources) Corticosteroid Start: 023 take 1 spray(s) nasal route once daily Fluticasone Propionate 50 MCG/ACT 1 spray in each nostril Nasally Once a day for 21 days May, Not-Taking lamoTRIgine 25 mg oral tablet (4 sources) Mood Stabilizer, Anti-epileptic Agent Start: 025 take 2 tablets by mouth once daily lamotrigine 25 mg Tab 25 mg = 1 tab(s), TAKE 1 TABLET BY MOUTH ONCE DAILY X2 WEEKS, 2 TABLETS ONCE DAILY X2 WEEKS DIRECTED Start Date: 04/27/24 Status: Ordered Start: 03-25-2024 lamoTRIgine (L aMICtal) 100 MG tablet 03/25/2024 Active lidocaine 0.05 mg/mg medicated patch (3 sources) Antiarrhythmic, Amide Local Anesthetic Start: 06-15-2023 [...] sources) Not-Taking terconazole 8 mg/ml vaginal cream (3 sources) Azole Antifungal Start: 01-05-2021 End: 02-26-2021 Terconazole Discontinued 1 APPLICATOR VAGINAL Daily at bedtime January 05, 2021 12:00am February 26, 2021 10:40pm Problems Active Problems Problem Classification Problem Date Documented Date Episodic/Chronic Allergic reactions (1 source) Allergic contact dermatitis due to plants, except food Episodic Anxiety disorders (17 sources) Anxiety; Translations: [Anxiety disorder, unspecified] Chronic Deficiency and other anemia (15 sources) Anemia; Translations: [Anemia, unspecified] 08-28-2023 Episodic Disorders usually diagnosed in infancy, childhood, or adolescence (15 sources) Adult attention deficit hyperactivity disorder ; Translations: [Other specified behavioral and emotional disorders with onset usually occurring in childhood and adolescence] Chronic E Codes: Fall (2 sources) Unspecified fall, initial encounter; Translations: [Unspecified fall] 06-15-2023 Episodic Fluid and electrolyte disorders (1 source) Hypokalemia; Translations: [Hypokalemia] Onset: 04-27-2024 Episodic Headache; including migraine (1 source) Headache; Translations: [Headache, unspecified] Onset: 04-27-2024 Episodic Malaise and fatigue (1 source) Asthenia; Translations: [Weakness] Onset: 04-27-2024 Episodic Menstrual disorders (3 sources) Irregular menstruation, unspecified; Translations: [Menorrhagia] Onset: 08-29-2021 05-13-2024 Chronic Mood disorders (15 sources) Dysthymic disorder; Translations: [Persistent depressive disorder] Chronic Nonmalignant breast conditions (4 sources) Discharge from the breast; Translations: [Nipple discharge] 05-13-2024 Episodic Other complications of (20 sources) Maternal obesity [...] of vagina] Episodic Other female genital disorders (3 sources) History of past delivery; Translations: [Status post vaginal delivery] 03-01-2021 Episodic Other screening for suspected conditions (not mental disorders or infectious disease) (20 sources) Encounter for screening for malignant neoplasm of cervix; Translations: [Encounter for screening for diabetes mellitus] Onset: 08-22-2021 Episodic Other upper respiratory infections (3 sources) Acute pharyngitis, unspecified; Translations: [Acute pharyngitis] [...] (1 source) 30 weeks gestation of Episodic Syncope (2 sources) Syncope and collapse Episodic Unclassified (1 source) CONTACT W/AND (SUSP) EXPOS COVID-19; Translations: [CONTACT W/AND (SUSP) EXPOS COVID-19] Onset: 03-21-2022 Past or Other Problems Problem Classification Problem Date Documented Date Episodic/Chronic Abdominal pain (1 source) Pelvic and perineal pain; Translations: [Pelvic and perineal pain] Onset: 10-02-2023 Episodic Immunizations and screening for infectious disease (20 [...] BLOOD TYPE RH NEGATIVE] Onset: 02-13-2022 Episodic Superficial injury; contusion (3 sources) Contusion of right shoulder, initial encounter; Translations: [Contusion of shoulder region] Onset: 06-15-2023 06-15-2023 Episodic Results Test Name Value Interpretation Reference Range Facility B hCG [facility] 04-27-2024 Beta HCG ( test) Ql Negative Normal [facility] Comment on above: Performed By: #### 2 [id number] #### [facility] [address] [place] [address] BMPon 04-27-2024 Anion gap [Moles/Vol] 10 mmol/L Normal 6-16 [facility] Comment on above: Performed By: #### 2 [id number] #### [facility] [address] [place] [address] Calcium [Mass/Vol] 8.5 mg/dL Low 8.9-11.1 [facility] Comment on above: Performed By: #### 2 [id number] #### [facility] [address] [place] [address] Chloride [Moles/Vol] 104 mmol/L Normal 101-111 [facility] Comment on above: Performed By: #### 2 [id number] #### [facility] [address] [place] [address] CO2 [Moles/Vol] 23 mmol/L Normal 21-31 [facility] Comment on above: Performed By: #### 2 [id number] #### [facility] [address] [place] [address] Creatinine [Mass/Vol] 0.8 mg/dL Normal 0.5-1.3 [facility] Comment on above: Performed By: #### 2 [id number] #### [facility] [address] [place] [address] Glucose [Mass/Vol] 105 mg/dL Normal 55-199 [facility] Comment on above: Performed By: #### 2 [id number] #### [facility] [address] [place] [address] Potassium [Moles/Vol] 3.2 mmol/L Low 3.5-5.[address] [facility] Comment on above: Performed By: #### 2 [id number] #### [facility] [address] [place] [address] Sodium [Moles/Vol] 134 mmol/L Low 135-145 [facility] Comment on above: Performed By: #### 2 [id number] #### [facility] [address] [place] [address] Urea nitrogen [Mass/Vol] 11 mg/dL Normal 5-21 [facility] Comment on above: Performed By: #### 2 [id number] #### [facility] [address] [place] [address] Urea nitrogen/Creatinine [Mass ratio] 14 No Units Normal 10-20 [facility] Comment on above: Performed By: #### 2 [id number] #### [facility] [address] [place] [address] CBC w/ Auto Diffon 5 Basophils/100 WBC (Bld) 0.5 % Normal 0.0-2.0 [facility] Comment on above: Performed By: #### 2 [id number] #### [facility] [address] [place] [address] Basophils/Leukocytes Auto (Bld) [Pure # fraction] 0.0 E9/L Normal 0.0-0.2 [facility] Comment on above: Performed By: #### 2 [id number] #### [facility] [address] [place] [address] Eosinophils (Bld) [#/Vol] 0.2 E9/L Normal 0.0-0.5 [facility] Comment on above: Performed By: #### 2 [id number] #### [facility] [address] [place] [address] Eosinophils/100 WBC (Bld) 1.9 % Normal 0.0-8.0 [facility] Comment on above: Performed By: #### 2 [id number] #### [facility] [address] [place] [address] Erythrocyte distribution width (RBC) [Ratio] 13.2 % Normal 10.9-14.2 [facility] Comment on above: Performed By: #### 2 [id number] #### [facility] [address] [place] [address] Hematocrit (Bld) [Volume fraction] 36.0 % Normal 34.0-46.0 [facility] Comment on above: Performed By: #### 2 [id number] #### [facility] [address] [place] [address] Hemoglobin (Bld) [Mass/Vol] 12.5 g/dL Normal 12.0-16.0 [facility] Comment on above: Performed By: #### 2 [id number] #### [facility] [address] [place] [address] Lymphocytes (Bld) [#/Vol] 2.9 E9/L Normal 1.0-4.0 [facility] Comment on above: Performed By: #### 2 [id number] #### [facility] [address] [place] [address] Lymphocytes/100 WBC (Bld) 30.8 % Normal 14.0-50.0 [facility] Comment on above: Performed By: #### 2 [id number] #### [facility] [address] [place] [address] MCH (RBC) [Entitic mass] 29.8 pg Normal 27.0-34.0 [facility] Comment on above: Performed By: #### 2 [id number] #### [facility] [address] [place] [address] MCHC (RBC) [Mass/Vol] 34.7 g/dL Normal 31.4-36.0 [facility] Comment on above: Performed By: #### 2 [id number] #### [facility] [address] [place] [address] MCV (RBC) [Entitic vol] 85.8 fL Normal 80.0-100.0 [facility] Comment on above: Performed By: #### 2 [id number] #### [facility] [address] [place] [address] Monocytes (Bld) [#/Vol] 0.7 E9/L Normal 0.2-1.0 [facility] Comment on above: Performed By: #### 2 [id number] #### [facility] [address] [place] [address] Neutrophils (Bld) [#/Vol] 5.7 E9/L Normal 2.0-7.5 [facility] Comment on above: Performed By: #### 2 [id number] #### [facility] [address] [place] [address] Neutrophils/100 WBC (Bld) 59.4 % Normal 36.0-75.0 [facility] Comment on above: Performed By: #### 2 [id number] #### [facility] [address] [place] [address] Platelet mean volume (Bld) [Entitic vol] 8.6 fL Normal 6.4-10.8 [facility] Comment on above: Performed By: #### 2 [id number] #### [facility] [address] [place] [address] Platelets (Bld) [#/Vol] 242.0 E9/L Normal 150.0-500.0 [facility] Comment on above: Performed By: #### 2 [id number] #### [facility] [address] [place] [address] RBC (Bld) [#/Vol] 4.2 E12/L Low 4.3-5.9 [facility] Comment on above: Performed By: #### 2 [id number] #### [facility] [address] [place] [address] WBC corrected for nucl RBC Auto (Bld) [#/Vol] 9.5 E9/L Normal 4.0-11.0 [facility] Comment on above: Performed By: #### 2 [id number] #### [facility] [address] [place] [address] CHEMISTRYOrdered By: SYSTEM SYSTEM on 04-27-2024 Troponin HS 2.70 pg/mL Low 10.10 - 27.10 pg/mL [facility] Comment on above: Interpretive Data: T he 95% CI (Confidence Interval) PPV (Positive Predictive Value) for myocardial infarction in females is 38 pg/mL, in males 51 pg/mL. The results should be used in conjunction with clinical conditions of myocardial infarction. (Access High Sensitivity Troponin I Instructions For Use, [employer], October 2017) Anion gap [Moles/Vol] 10 mmol/L Normal 6 - 16 mEq/L R [facility] Calcium [Mass/Vol] 8.5 mg/dL Low 8.9 - 11. 1 mg/dL [facility] Chloride [Moles/Vol] 104 mmol/L Normal 101 - 1 11 mmol/L [facility] CO2 [Moles/Vol] 23 mmol/L Normal 21 - 31 mmol/L [facility] Creatinine [Mass/Vol] 0.8 mg/dL Normal 0.5 - 1.3 mg/dL [facility] eGFR 103 mL/min/1.73 m2 Normal >=59mL/mi n/1 .73 m2 [facility] Glucose [Mass/Vol] 105 mg/dL Normal 55 - 199 mg/dL [facility] Magnesium [Mass/Vol] 1.9 mg/dL Normal 1.3 - 2 .4 mg/dL [facility] Potassium [Moles/Vol] 3.2 mmol/L Low 3.5 - 5.3 mmol/L [facility] Sodium [Moles/Vol] 134 mmol/L Low 135 - 145 mmol/L [facility] Troponin HS pg/mL Low 10.10 - 27.10 pg/mL [facility] Comment on above: Interpretive Data: T he 95% CI (Confidence Interval) PPV (Positive Predictive Value) for myocardial infarction in females is 38 pg/mL, in males 51 pg/mL. The results should be used in conjunction with clinical conditions of myocardial infarction. (Access High Sensitivity Troponin I Instructions For Use, [employer], October 2017) Urea nitrogen [Mass/Vol] 11 mg/dL Normal 5 - 21 mg/dL [facility] Urea nitrogen/Creatinine [Mass ratio] 14 mg/mg Normal 10 - 20 [facility] COAGULATIONOrdered By: Leland Brush on 04-27-2024 aPTT Coag (PPP) [Time] 34.1 s Normal 25.1 - 36.5 second(s) [facility] Comment on above: Interpretive Data: Alicia orourke 15 days - 4 weeks 1 - 5 months 6 - 11 months 1 - 5 years 6 - 10 years 11 - 17 years PTT Mean: 35.4 (27.6-45.6) Mean: 33.5 (24.8-40.7) Mean: 32.4 (25.1-40.7) Mean: 31.6 (24.0-39.2) Mean: 31.6 (26.9-38.7) Mean: 31.0 (24.6-38.4) Pediatric Reference ranges were obtained from a study by [employer] Real prepared from 1437 samples obtained at 7 different centers using the same coagulation reagent and instrumentation as [facility] [facility]. Currently there are no coagulation studies available worldwide for children to 14 days, and no normal ranges. Heparin therapeutic range (represented by Anti-Factor Xa activity of 0.2 - 0.4 U/mL) corresponds to PTT of 56.6 - 109.0 sec. INR Coag (PPP) [Relative time] 1.20 {INR} Invalid Interpretation Code [facility] [place] [facility] Comment on above: Interpretive Data: I NR results are specifically intended to assess patients stabilized on long-term Anticoagulation therapy suggested INR s Less Intensive Anticoagulation 2.0 3.0 Conventional Range 3.0 4.5 PT Coag (PPP) [Time] 13.5 s High 9.4 - 1 2.5 second(s) [facility] [place] [facility] Comment on above: Interpretive Data: 1 5 days - 4 weeks 1 - 5 months 6 -11 months 1 5 years 6 10 years 11 -17 years Mean: 11.2 (9.5 12.6) Mean: 11.0 (9.7 12.8) Mean: 11.0 (9.8 13.0) Mean: 11.3 (9.9 13.4) Mean: 11.7 (10.0 14.6) Mean: 11.8 (10.0 - 14.1) Pediatric Reference ranges were obtained from a study by tracee Real prepared from 1437 samples obtained at 7 different centers using the same coagulation reagent and instrumentation as [facility] [place]. Currently there are no coagulation studies available worldwide for children to 14 days, and no normal ranges. CT Head or Brain w/o Contras ton 04-27-2024 CT Head or Brain w/o Contrast Exam Date/Time: 04/27/2024 01:53 EST Reason for Exam: Headache Report IMPRESSION: NO ACUTE INTRACRANIAL PROCESS. EXAMINATION: CT of the brain without contrast HISTORY: Headache COMPARISON: None available TECHNIQUE: Multiple axial images were obtained of the brain from the skull base through the vertex. Multiplanar reformats were obtained. FINDINGS: Brain volume is age appropriate. Ventricular morphology is within normal limits. Knowles-white matter differentiation is preserved. No acute hemorrhage or abnormal extra-axial fluid collection. Basal cisterns are patent. No mass effect or midline shift. The visualized paranasal sinuses and mastoid air cells are clear. Calvarium is intact. All CT scans at this facility use dose modulation, iterative reconstruction, and/or weight based dosing when appropriate to reduce radiation dose to as low as reasonably achievable. Ordering Provider: Angelica Virk FINAL REPORT Dictated: 04/27/2024 12:21 pm Devon Campbell DO Signed (Electronic Signature): 04/27/2024 12:21 pm Signed by: Devon Campbell DO Transcribed by: SD Technologist: LILLI Luis [facility] ED Clinical Summaryon 2024 ED Clinical Summary ED Clinical Summary [place] [address] ED Clinical Summary Person Information Name: MALINI COON/[facility] Age: 28 Years : 1995 Sex: Female Language: Albanian PCP: TONY ROBERSON MD Marital Status: Visit Id: Visit Reason: Headache; WEAKNESS Speciality: Acuity: 3 Enc Type: Emergency Med Service: Emergency Arrival: 04/27/2024 01:05:24 Discharge: 04/27/2024 03:40:07 LOS: 000 02:35 Checkin: 04/27/2024 01:05:24 Checkout: 04/27/2024 03:40:07 Dispo Type: Home (Routine DC) EVENTS: Event Name Event Status Request Date/Time Start Date/Time Complete Date/Time Arrive Complete 04/27/2024 01:05:24 04/27/2024 01:05:24 04/27/2024 01:05:24 Document Home Meds Request 04/27/2024 01:05:24 Triage Complete 04/27/2024 01:05:24 04/27/2024 01:10:31 04/27/2024 01:10:31 Bed Assign Complete 04/27/2024 01:06:52 04/27/2024 01:06:52 04/27/2024 01:06:52 Dr Exam Complete 04/27/2024 01:06:52 04/27/2024 01:07:12 04/27/2024 01:07:12 RN Exam Complete 04/27/2024 01:06:52 04/27/2024 01:44:45 04/27/2024 01:44:45 Registration Complete 04/27/2024 01:07:12 04/27/2024 01:25:31 04/27/2024 01:25:31 EKG Cancel 04/27/2024 01:09:24 04/27/2024 01:11:40 Meds Admin Complete 04/27/2024 01:11:44 04/27/2024 01:24:13 Pending Labs Complete 04/27/2024 01:11:44 04/27/2024 03:07:43 Lab Complete 04/27/2024 01:11:44 04/27/2024 01:54:07 Patient Care Request 04/27/2024 01:11:44 RT Request 04/27/2024 01:11:44 X-Ray Complete 04/27/2024 01:11:44 04/27/2024 01:12:21 04/27/2024 01:54:08 CT Complete 04/27/2024 01:11:44 04/27/2024 01:12:22 04/27/2024 01:53:59 EKG Complete 04/27/2024 01:12:04 04/27/2024 01:18:36 Reg Complete Request 04/27/2024 01:25:31 Reg Bed Request Complete 04/27/2024 01:25:31 04/27/2024 01:25:31 04/27/2024 01:25:31 Pending Labs Complete 04/27/2024 01:29:31 04/27/2024 01:29:31 04/27/2024 01:54:07 Lab Complete 04/27/2024 01:29:31 04/27/2024 01:29:31 04/27/2024 01:54:07 Wet Read Request 04/27/2024 01:54:08 Meds Admin Complete 04/27/2024 01:56:23 04/27/2024 03:32:35 Meds Admin Complete 04/27/2024 02:18:00 04/27/2024 02:26:00 Discharge Complete 04/27/2024 03:19:05 04/27/2024 03:40:10 04/27/2024 03:40:10 Transfer Complete 04/27/2024 03:40:10 04/27/2024 03:40:10 04/27/2024 03:40:10 ADDRESS: [address] [place] [phone] PHYS DOC NOTES: MEDICAL INFORMATION: Prescriptions Given: New Medications [id number], [address], [place] [id number], [phone] naproxen (Naprosyn 500 mg Tab) 1 Tablets By Mouth 2 times a day as needed for pain. Refills: 0. ondansetron (Zofran ODT 4 mg Tab-Dis) 1 Tablets By Mouth every 6 hours. Refills: 0. Medications to Continue with No Changes Other Medications lamotrigine (lamotrigine 25 mg Tab) 1 Tablets. TAKE 1 TABLET BY MOUTH ONCE DAILY X2 WEEKS, 2 TABLETS ONCE DAILY X2 WEEKS DIRECTED. PATIENT EDUCATION INFORMATION: Instructions: Weakness, Krbk-rl-Zsuz; Hypokalemia; General Headache Without Cause, Htcr-ex-Iyyq Follow up: With: Address: When: TONY ROBERSON [address] [place] [address] Business (1) In 3 days 04/30/2024 Comments: You can use the naproxen, Zofran as prescribed as needed for pain and nausea. Please follow-up with your primary care doctor for further evaluation management. Please return to the ED for any new or worsening symptoms. DIAGNOSIS: Acute headache; Generalized weakness; Hypokalemia Normal [facility] ED Note-Physicianon 04-27-19 ED Note-Physician ED Note-Physician Basic Information Time Seen: Angelica Virk DO 04/27/2024 01:07 Chief Complaint pt to ED via [facility] with c/o not feeling right when waking up. states pin and needles all over body and now having a GUERRERO. denies vision changes or numbness. being tested for POTS. moving all extremities equally upon ED arrival. History of Present Illness Patient is a 28-year-old female with a past medical history of bipolar disorder presenting to the ED for evaluation of not feeling right when she woke up. Patient states she woke up started having yucr-jeq-vkotkxz all over her body with numbness in her face, developed a headache shortly after this. Patient states she was feeling well prior to going to bed denies recent illness, cough, congestion, nausea or vomiting. Patient does that she has a history of headaches however typically does not have the symptoms with these headaches. Patient states symptoms are starting to improve. Review of Systems A 10 point review of systems is negative except as noted above. Medical and Surgical History: Reviewed and noted Social history: Lives at home Tobacco: Denies Physical Exam Vitals & Measurements T: 36.8 ???C(Oral) HR: 92(Peripheral) RR: 16 BP: 118/71 SpO2: 100% HT: 167 cm WT: 77.5 kg BMI: 27.79 General: Well developed, non toxic appearing, no acute distress HEENT: Head atraumatic, Mucosa moist, hearing grossly normal Neck: No JVD, tracheal deviation Cardiac: Regular rate, rhythm, no murmurs, or gallops, 2+ radial pulses Respiratory: Lungs clear to auscultation B/L, normal respiratory effort Abdomen: Soft non tender, no rebound or guarding, no peritoneal signs Extremities: No edema noted in the LE B/L, no tenderness to palpation Neurologic: Alert and oriented, speech clear, cranial nerves III through XII intact, no focal neurologic deficits Skin: No rashes or lesions Psych: Appropriate mood and behavior Medical Decision Making MEDICAL DECISION MAKING Number and Complexity of Problems Differential Diagnosis: [] [facility] Data External documents reviewed: [] My EKG interpretation: [] My CT interpretation: [] My X-ray interpretation: [] My Ultrasound interpretation: [] Decision rules/scores evaluated: [] Discussed with: [] Treatment and Disposition ED Course: Patient is a 28-year-old female presenting to the ED for evaluation of headache, numbness and tingling throughout her body. Patient nontoxic in arrival, no acute distress. Due to her complaints laboratory evaluation is obtained, CT that is ordered. Patient is given Reglan, Benadryl in the ED for her symptoms. Patient's laboratory evaluation reveals mild hypokalemia otherwise is unremarkable, troponins are negative x 2. Chest x-ray out focal infiltrates CT of the head does not show any acute findings. Patient continued complain of headache on reexamination is given Toradol, Decadron, magnesium. On reevaluation patient is feeling improved. She is comfortable discharge home. Is given prescription for naproxen, Zofran. She is to follow-up with her primary care doctor for further evaluation management. She is to return to the ED for any worsening symptoms. Shared decision making: [] Code status: [] Assessment/Plan Acute headache (R51.9: Headache, unspecified) Generalized weakness (R53.1: Weakness) Hypokalemia (E87.6: Hypokalemia) Orders: dexamethasone, 10 mg = 1 mL, Injection, IV Push, Once, Stop date 04/27/24 2:17:00 EST, STAT, Start date 04/27/24 2:17:00 EST, Administer over no less than one minute, 04/27/24 2:17:00 EST diphenhydrAMINE, 25 mg = 0.5 mL, Injection, IV Push, Once, Stop date 04/27/24 1:11:00 EST, STAT, Start date 04/27/24 1:11:00 EST, 04/27/24 1:11:00 EST ketorolac, 30 mg = 1 mL, Injection, IV Push, Once, Stop date 04/27/24 2:17:00 EST, STAT, Start date 04/27/24 2:17:00 EST, 04/27/24 2:17:00 EST magnesium sulfate + Generic Diluent 50 mL, 2 gram = 50 mL, IV Piggyback, Once, Stop date 04/27/24 2:17:00 EST, STAT, Start date 04/27/24 2:17:00 EST, 50 mL/hr, Infuse over 1 hour(s), 04/27/24 2:17:00 EST metoclopramide, 10 mg = 2 mL, Injection, IV Push, Once, Stop date 04/27/24 1:10:00 EST, STAT, Start date 04/27/24 1:10:00 EST, 04/27/24 1:10:00 EST naproxen, 500 mg = 1 tab(s), Oral, BID, PRN for pain, # 20 tab(s), Refills(s) 0, [id number], 167, cm, 04/27/24 1:10:00 EST, Height/Length Dosing, 77.5, kg, 04/27/24 1:10:00 EST, Weight Dosing ondansetron, 4 mg = 1 tab(s), Oral, q6hr, # 12 tab(s), Refills(s) 0, [id number], 167, cm, 04/27/24 1:10:00 EST, Height/Length Dosing, 77.5, kg, 04/27/24 1:10:00 EST, Weight Dosing potassium chloride, 40 mEq = 2 tab(s), Tab-ER, Oral, Once, Stop date 04/27/24 1:55:00 EST, STAT, Start date 04/27/24 1:55:00 EST, 04/27/24 1:55:00 EST Sodium Chloride 0.9% intravenous solution, 1,000 mL, Soln-IV, IV, Once, Stop date 04/27/24 1:09:00 EST, STAT, Start date 04/27/24 1:09:00 EST, Infuse over 61, minute(s) Basic Me (more content not included)... Normal [facility] Comment on above: Result Comment: Elec tronically Signed By: Angelica Virk DO.br\Date and Time Signed: 04/27/24 03:20 EST ED Patient Summaryon 025 ED Patient Summary ED Patient Summary [address] [address] Patient Discharge Instructions Person Information Name: MALINI COON Age: 28 Years Arrival Date: 04/27/2024 01:05:24 Discharge Diagnosis: Acute headache; Generalized weakness; Hypokalemia Primary Care Physician: TONY ROBERSON MD Provider Information Primary Provider: Angelica Virk DO Advanced Inventory Management Specialist:None The exam and treatment you received in the Emergency Department were for an urgent problem and are not intended as complete care. It is important that you follow up with a doctor, nurse practitioner, or physician???s offset assistant press operator for ongoing care. If your symptoms become worse or you do not improve as expected and you are unable to reach your usual health care provider, you should return to the Emergency Department. We are available 24 hours a day. MALINI COON has been given the following list of patient education materials, prescriptions and follow-up instructions: Follow-up Instructions: With: Address: When: TONY ROBERSON [address] [place], [place] [id number] Business (1) In 3 days 04/30/2024 Comments: You can use the naproxen, Zofran as prescribed as needed for pain and nausea. Please follow-up with your primary care doctor for further evaluation management. Please return to the ED for any new or worsening symptoms. In the event that this physician does not participate in your insurance network, please consult with your insurance company to find a nearby participating provider. Patient Education Materials: Weakness, Olft-md-Xdti; Hypokalemia; General Headache Without Cause, Khcw-dc-Sfne A MESSAGE TO ALL PATIENTS REGARDING OPIOIDS PRESCRIPTION OPIOIDS: WHAT YOU NEED TO KNOW Prescription opioids can be used to help relieve idqwobcm-pn-lbiafh pain and are often prescribed following a surgery or injury, or for certain health conditions. These medications can be an important part of the treatment but also come with serious risks. It is important to work with your healthcare provider to make sure you are getting the safest, most effective care. WHAT ARE THE RISKS AND SIDE EFFECTS OF OPIOID USE? Prescription opioids carry serious risks of addiction and overdose, especially with prolonged use. An opioid overdose, often marked by slowed breathing, can cause sudden . The use of prescription opioids can have a number of side effects as well, even when taken as directed: ??? Tolerance???meaning you might need to take more of the medication for the same pain relief ??? Physical dependence???meaning you have symptoms of withdrawal when a medication is stopped ??? Increased sensitivity to pain ??? Constipation ??? Nausea, vomiting, and dry mouth ??? Sleepiness and dizziness ??? Confusion ??? Depression ??? Low levels of testosterone that can result in lower sex drive, energy, and strength ??? Itching and sweating RISKS ARE GREATER WITH: ??? History of drug misuse, substance use disorder, or overdose ??? Mental health conditions (such as depression or anxiety) ??? Sleep apnea ??? Older age (65 years and older) ??? Avoid alcohol while taking prescription opioids. Also, unless specifically advised by your health care provider, medications to avoid include: ??? Benzodiazepines (such as Xanax or Valium) ??? Muscle relaxants (such as Soma or Flexeril) ??? Hypnotics (such as Ambien or Lunesta) ??? Other prescription opioids KNOW YOUR OPTIONS Talk to your health care provider about ways to manage your pain that don???t involve prescription opioids. Some of these options may actually work better and have fewer risks and side effects. Options may include: ??? Pain relievers such as acetaminophen, ibuprofen, and naproxen ??? Some medication that are also used for depression or seizures ??? Physical therapy and exercise ??? Cognitive behavioral therapy, a psychological, goal-directed approach, in which patients learn how to modify physical, behavioral, and emotional triggers of pain and stress. IF YOU ARE PRESCRIBED OPIOIDS FOR PAIN: ??? Never take opioids in greater amounts or more often than prescribed. ??? Follow up with your primary health care provider. o Work together to create a plan on how to manage your pain. o Talk about ways to help manage your pain that don???t involve prescription opioids. o Talk about any and all concerns and side effects. ??? Help prevent misuse and abuse o Never sell or share prescription opioids. o Never use another person???s prescription opioids. ??? Store prescription opioids in a secure place and out of reach of others (this may include visitors, children, friends, and family). ??? Safely dispose of unused prescription opioids: Find your community drug take-back program or your pharmacy mail-back program, or flush them down (more content not included)... Normal [facility] HEMATOLOGYOrdered By: SYSTEM SYSTEM on 04-27-2024 Basophils/100 WBC (Bld) 0.5 % Normal 0.0 - 2.0 % Remisol Heme Basophils/Leukocytes Auto (Bld) [Pure # fraction] 0.0 E9/L Normal 0.0 - 0.2 E9/L Remisol Heme Eosinophils (Bld) [#/Vol] 0.2 E9/L Normal 0.0 - 0.5 E9/L Remisol Heme Eosinophils/100 WBC (Bld) 1.9 % Normal 0.0 - 8.0 % Remisol Heme Erythrocyte distribution width (RBC) [Ratio] 13.2 % Normal 10.9 - 14.2 % Remisol Heme Hematocrit (Bld) [Volume fraction] 36.0 % Normal 34.0 - 46.0 % Remisol Heme Hemoglobin (Bld) [Mass/Vol] 12.5 g/dL Normal 12.0 - 16.0 gm/dL Remisol Heme Lymphocytes (Bld) [#/Vol] 2.9 E9/L Normal 1.0 - 4.0 E9/L Remisol Heme Lymphocytes/100 WBC (Bld) 30.8 % Normal 14.0 - 50.0 % Remisol Heme MCH (RBC) [Entitic mass] 29.8 pg Normal 27.0 - 34.0 pg Remisol Heme MCHC (RBC) [Mass/Vol] 34.7 g/dL Normal 31.4 - 36.0 gm/dL Remisol Heme MCV (RBC) [Entitic vol] 85.8 fL Normal 80.0 - 100.0 fL Remisol Heme Monocytes (Bld) [#/Vol] 0.7 E9/L Normal 0.2 - 1.0 E9/L Remisol Heme Monocytes/100 WBC (Bld) 7.4 % Normal 4.0 - 14.0 % Remisol Heme Neutrophils (Bld) [#/Vol] 5.7 E9/L Normal 2.0 - 7.5 E9/L Remisol Heme Neutrophils/100 WBC (Bld) 59.4 % Normal 36.0 - 75.0 % Remisol Heme Platelet mean volume (Bld) [Entitic vol] 8.6 fL Normal 6.4 - 10.8 fL Remisol Heme Platelets (Bld) [#/Vol] 242.0 E9/L Normal 150.0 - 500.0 E9/L Remisol Heme RBC (Bld) [#/Vol] 4.2 E12/L Low 4.3 - 5.9 E12/L Remisol Heme WBC corrected for nucl RBC Auto (Bld) [#/Vol] 9.5 E9/L Normal 4.0 - 11.0 E9/L Remisol Heme Magnesiumon 04-27-2024 Magnesium [Mass/Vol] 1.9 mg/dL Normal 1.3-2.4 [facility] Comment on above: Performed By: #### 2 [id number] #### [facility] [address] [place] [address] PT & PTTon 04-27-2024 aPTT Coag (PPP) [Time] 34.1 second(s) Normal 25.1-36.5 [facility] Comment on above: Result Comment: Para meter 15 days - 4 weeks 1 - 5 months 6 - 11 months 1 - 5 years 6 - 10 years 11 - 17 years PTT Mean: 35.4 (27.6-45.6) Mean: 33.5 (24.8-40.7) Mean: 32.4 (25.1-40.7) Mean: 31.6 (24.0-39.2) Mean: 31.6 (26.9-38.7) Mean: 31.0 (24.6-38.4) Pediatric Reference ranges were obtained from a study by Woo Lo et al. prepared from 1437 samples obtained at 7 different centers using the same coagulation reagent and instrumentation as [facility]. Currently there are no coagulation studies available worldwide for children to 14 days, and no normal ranges. Heparin therapeutic range (represented by Anti-Factor Xa activity of 0.2 - 0.4 U/mL) corresponds to PTT of 56.6 - 109.0 sec. Performed By: #### 1 [id number] #### [facility] [address] [place] [address] INR Coag (PPP) [Relative time] 1.20 {INR} Invalid Interpretation Code [facility] Comment on above: Result Comment: INR results are specifically intended to assess patients stabilized on long-term Anticoagulation therapy suggested INR???s ???Less Intensive Anticoagulation??? 2.0 ??? 3.0 Conventional Range 3.0 ??? 4.5 Performed By: #### 1 [id number] #### [facility] [address] [place] [address] PT Coag (PPP) [Time] 13.5 second(s) High 9.4-12.5 [facility] Comment on above: Result Comment: 15 d ays - 4 weeks 1 - 5 months 6 -11 months 1 ??? 5 years 6 ??? 10 years 11 -17 years Mean: 11.2 (9.5 ??? 12.6) Mean: 11.0 (9.7 ??? 12.8) Mean: 11.0 (9.8 ??? 13.0) Mean: 11.3 (9.9 ??? 13.4) Mean: 11.7 (10.0 ??? 14.6) Mean: 11.8 (10.0 - 14.1) Pediatric Reference ranges were obtained from a study by Woo Lo et al. prepared from 1437 samples obtained at 7 different centers using the same coagulation reagent and instrumentation as [facility]. Currently there are no coagulation studies available worldwide for children to 14 days, and no normal ranges. Performed By: #### 1 [id number] #### [facility] [address] [place] [address] Pre-Arrival Noteon 5 Pre-Arrival Note Pre-Arrival Note Pre-Arrival Summary Name: , [facility] Current Date: 04/27/2024 01:06:58 EST Gender: Female Date of : Age: 28 Pre-Arrival Type: EMS ETA: 04/27/2024 01:20:00 EST Primary Care Physician: Presenting Problem: weakness Pre-Arrival User: Ronel Walker RN Referring Source: Location: [place] Completion Date/Time: 04/27/2024 00:50:00 [facility] Emergency Department Pre-Hospital Report Form Vital Signs: 116/65 HR 103 RR 16 100% RA Pre-Hospital Report: Pt awoke feeling shaky and weak, tachy. Treatment in Route: 20 R AC, fluids going Response to Treatment: Misc. Issues: Normal [facility] SEROLOGYOrdered By: Leland salinas on 04-27-2024 Beta HCG ( test) Ql Negative (04/27/24 1:23 AM) Normal [facility] Man Sero Troponin 0 Hr.on 04-27-2024 Troponin HS <2.30 Low 10.10-27.10 [facility] Comment on above: Result Comment: The 95% CI (Confidence Interval) PPV (Positive Predictive Value) for myocardial infarction in females is 38 pg/mL, in males 51 pg/mL. The results should be used in conjunction with clinical conditions of myocardial infarction. (Access High Sensitivity Troponin I Instructions For Use, Nuenz, October 2017) Performed By: #### 1 [id number] #### [facility] [address] [place] [address] Troponin 1 Hr.on 04-27-2024 Troponin HS 2.70 pg/mL Low 10.10-27.10 [facility] Comment on above: Order Comment: due @ 0224 [id number] 04/27/2024 01:30:07 EST Result Comment: The 95% CI (Confidence Interval) PPV (Positive Predictive Value) for myocardial infarction in females is 38 pg/mL, in males 51 pg/mL. The results should be used in conjunction with clinical conditions of myocardial infarction. (Access High Sensitivity Troponin I Instructions For Use, Nuenz, October 2017) Performed By: #### 1 [id number] #### [facility] [address] [place] [address] XR Chest Single Viewon 04-27 XR Chest Single View Exam Date/Time: 04/27/2024 01:54 EST Reason for Exam: Chest pain Report IMPRESSION: NO RADIOGRAPHIC EVIDENCE OF ACUTE INTRATHORACIC PROCESS. EXAM: XR Chest Single View History: Chest pain Technique: Portable AP view of the chest. Comparison: None available Findings: The cardiomediastinal silhouette is within normal limits. No pneumothorax, pleural effusion, or consolidation. No acute osseous abnormality. Ordering Provider: Angelica Virk FINAL REPORT Dictated: 04/27/2024 9:22 am Devon Campbell DO Signed (Electronic Signature): 04/27/2024 9:22 am Signed by: Devon Campbell DO Transcribed by: SD Technologist: LILLI Normal [facility] eGFRon 04-27-2024 eGFR 103 mL/min/1.73 m2 Normal >=59 [facility] Comment on above: Performed By: #### 1 [id number] #### [facility] [address] [place] [address] HPV 16+18+31+33+35+39+45+51+ 52+56+58+59+68 DNA cervix probe + signal amplificon 09-15-2023 HPV 16+18+31+33+35+39+45+ 51+52+56+58+59+68 DNA Probe+sig amp Ql (Cvx) Note . [facility] Comment on above: TESTS RESULT FLAG UN ITS REF RANGE LAB Clinician Provided Cytology Information Source.............Cervix;Endocervix No. of containers..01 ThinPrep VialDIAGNOSIS: 01 UNSATISFACTORY FOR EVALUATION.Recommendation: 01 Suggest follow up as clinically appropriate.Specimen adequacy: 01 Specimen processed and examined but unsatisfactory for evaluation of epithelial abnormality because of insufficient cellularity. Areas of partially obscuring blood are present.Performed by: Michelle Marinelli, Hemodialysis Rn (ASCP)QC reviewed by: Gina Benavidez, Supervisory Hemodialysis Rn (ASCP). 01Note: Note 01 The Pap smear is a screening test designed to aid in the detection of premalignant and malignant conditions of the uterine cervix. It is not a diagnostic procedure and should not be used as the sole means of detecting cervical cancer. Both false-positive and false-negative reports do occur.Test Methodology: Note 01 This liquid based ThinPrep(R) pap test was screened with the use of an image guided system.HPV Genotype Reflex Note 01 Criteria not met, HPV Genotype not performed. ------ FLAG LEGEND: L-Low Normal,H-High Normal,LL-Alert Low,HH-Alert High <-Panic Low,>-Panic High,A-Abnormal,AA-Critical Abnormal ----Performed at:[address] [address] Karine Meehan MD, Human papilloma virus 16+18+ 31+33+35+39+45+51+52+56+58+59+66+68 DNA [Presence] in [place] 09-15-2023 HPV 16+18+31+33+35+39+45+ 51+52+56+58+59+66+68 DNA Probe+sig amp Ql (Cvx) Negative Negative [facility] Comment on above: This nucleic acid am plification test detects fourteen high- risk HPV types (16,18,31,33,35,39,45,51,52,56,58,59,66,68)without differentiation.Performed at: [address] [id number] Director: Karine Meehan MD, Phone: [phone] at: = - [address] [id number] Director: Karine Meehan MD, Phone: [phone] No Panel InformationOrdered By: Debora Curran on 08-28-2023 Quick Strep (POC) [facility] Human papilloma virus 16+18+ 31+33+35+39+45+51+52+56+58+59+66+68 DNA [Presence] in [place] 08-04-2023 HPV 16+18+31+33+35+39+45+ 51+52+56+58+59+66+68 DNA Probe+sig amp Ql (Cvx) Note . [facility] Comment on above: TESTS RESULT FLAG UN ITS REF RANGE LAB D IAGNOSIS: 02 UNSATISFACTORY FOR EVALUATION.Recommendation: 02 Suggest follow up as clinically appropriate.Specimen adequacy: 02 Specimen processed and examined but unsatisfactory for evaluation of epithelial abnormality because of insufficient cellularity.Performed by: 02 Ariana Montero, Hemodialysis Rn (ASC)QC reviewed by: 02 Rachel Jarrell, Supervisory Hemodialysis Rn (ASC). 02Note: Note 02 The Pap smear is [...] result therefore, no HPV testing was performed. ------ FLAG LEGEND: L-Low Normal,H-High Normal,LL-Alert Low,HH-Alert High <-Panic Low,>-Panic High,A-Abnormal,AA-Critical Abnormal ----Performed at:02 [address] [facility] [address] [place] [address] Karine Meehan MD, Xbcmsfppm at: =G - [facility] [address] [place], [place] [id number] Director: Karine Meehan MD, Phone: [phone] at: WB - [facility] [id number] [id number] Director: Karine Meehan MD, Phone: [phone] No Panel Informationon 08-03 Reference Lab Test Patient Age Note . [facility] Comment on above: TESTS RESULT FLAG UN ITS REF RANGE LAB Clinician Provided Cytology Information Source.............Cervix;Endocervix No. of containers..01 ThinPrep VialAge Issac SANCHEZ Katlin... FLAG LEGEND: L-Low Normal,H-High Normal,LL-Alert Low,HH-Alert High <-Panic Low,>-Panic High,A-Abnormal,AA-Critical Abnormal ----Performed at:01 =G [facility] [address] [place] [id number] Karine Meehan MD, XR shoulder RT min 2V*on XR shoulder RT min 2V* [facility] Main [address] [address] XRay Report Signed Patient: Malini Coon MR#: [id number] : 1995 Acct:[id number] Age/Sex: 27 / F ADM Date: 06/15/23 [facility]: Arely Lentz APRN Copies to: [...] Edward Torres M.D.06/15/2023 1:13 PM Dictation Location: [place] [address] Transcribed By: [facility] 06/15/23 1313 Dictated By: Edward Torres DO 06/15/23 1313 Signed By: 06/15/23 1313 Normal [facility] CA cardiac event monitoron 04-12-2022 CA cardiac event monitor [facility] Main [address] [address] Cardiac Event Monitor Signed Patient: Malini Coon MR#: [id number] : 1995 Acct:[id number] Age/Sex: 27 / F ADM Date: 01/23/23 [facility]: [facility]: [facility]: Maegan Crowder MD Copies to: Tyson Trejo MD, [facility] Maegan Crowder MD Ordering Provider: Maegan [...] 02/10/23 1313 Dictated By: Tyson Trejo MD, [facility] 02/10/23 1039 Signed By: 02/11/23 1322 Normal [facility] Quick Strepon 05-27-2022 S. pyogenes Org specific cx Ql (Throat) Negative [facility] [employer] Other Quick Strep [facility] [employer] Other CBC AUTO DIFFon 03-13-2022 BASO # 0.0 103/ul Normal 0.0-0.1 [facility] Comment on above: Performed By: #### C BC #### [facility] [address] [address] [address] Evita Carrington Basophils/100 WBC (Bld) 0.3 % Normal 0.2-2.0 [facility] Comment on above: Performed By: #### C BC #### [facility] [address] [address] [address] Evita Carrington EO # 0.1 103/ul Normal 0.0-0.7 [facility] Comment on above: Performed By: #### C BC #### [facility] [address] [place] [address] Dr. Evita Carrington Eosinophils/100 WBC (Bld) 0.7 % Critically low 0.9-7.0 [facility] Comment on above: Performed By: #### C BC #### [facility] [address] [place] [address] Dr. Evita Carrington Erythrocyte distribution width (RBC) [Ratio] 14.4 % Normal 11.0-15.0 [facility] Comment on above: Performed By: #### C BC #### [facility] [address] [address] [address] Evita Carrington Hematocrit (Bld) [Volume fraction] 32.5 % Critically low 36.0-48.0 [facility] Comment on above: Performed By: #### C BC #### [facility] [address] [place] [address] Dr. Evita Carrington Hemoglobin (Bld) [Mass/Vol] 10.3 g/dL Critically low 12.0-16.0 [facility] Comment on above: Performed By: #### C BC #### [facility] [address] [place] [address] Dr. Evita Carrington IG # 0.07 10e3/ul Critically high 0.00-0.03 [facility] Comment on above: Performed By: #### C BC #### [facility] [address] [place] [address] Dr. Evita Carrington IG % 0.5 % Normal 0.0-0.5 [facility] Comment on above: Performed By: #### C BC #### [facility] [address] [place] [address] Dr. Evita Carrington LYMPH # 2.0 103/ul Normal 1.2-3.8 [facility] Comment on above: Performed By: #### C BC #### [facility] [address] [place] [address] Dr. Evita Carrington Lymphocytes/100 WBC (Bld) 13.6 % Critically low 20.5-60.0 [facility] Comment on above: Performed By: #### C BC #### [facility] [address] [place] [address] Dr. Evita Carrington MANUAL DIFF REQ NO Normal [facility] Comment on above: Performed By: #### C BC #### [facility] [address] [place] [address] Dr. Evita Carrington MCH (RBC) [Entitic mass] 25.9 pg Critically low 26.7-34.0 [facility] Comment on above: Performed By: #### C BC #### [facility] [address] [address] [address] Evita Carrington MCHC (RBC) [Mass/Vol] 31.7 g/dL Normal 29.9-35.2 [facility] Comment on above: Performed By: #### C BC #### [facility] [address] [address] [address] Evita Carrington MCV (RBC) [Entitic vol] 81.9 fL Normal 81.0-99.0 [facility] Comment on above: Performed By: #### C BC #### [facility] [address] [address] [address] Evita Carrington MONO # 1.2 103/ul Critically high 0.3-0.8 [facility] Comment on above: Performed By: #### C BC #### [facility] [address] [place] [address] Dr. Evita Carrington Monocytes/100 WBC (Bld) 8.3 % Normal 1.7-12.0 [facility] Comment on above: Performed By: #### C BC #### [facility] [address] [address] [address] Evita Carrington NEUT # 11.2 103/ul Critically high 1.4-6.5 [facility] Comment on above: Performed By: #### C BC #### [facility] [address] [address] [address] Evita Carrington Neutrophils/100 WBC (Bld) 76.6 % Critically high 43.0-75.0 [facility] Comment on above: Performed By: #### C BC #### [facility] [address] [address] [address] Evita Carrington Platelet mean volume (Bld) [Entitic vol] 10.6 fL Normal 9.5-13.5 [facility] Comment on above: Performed By: #### C BC #### [facility] [address] [address] [address] Evita Carrington PLT 222 103/ul Normal 150-450 [facility] Comment on above: Performed By: #### C BC #### [facility] [address] [place] [address] Dr. Evita Carrington RBC 3.97 106/ul Critically low 4.20-5.40 [facility] Comment on above: Performed By: #### C BC #### [facility] [address] [address] [address] Evita Carrington WBC 14.5 103/ul Critically high 4.0-11.0 [facility] Comment on above: Performed By: #### C BC #### [facility] [address] [place] [address] Dr. Evtia Carrington CBC AUTO DIFFon 03-12-2022 BASO # 0.0 103/ul Normal 0.0-0.1 [facility] Comment on above: Performed By: #### C BC #### [facility] [address] [place] [address] Dr. Evita Carrington Basophils/100 WBC (Bld) 0.3 % Normal 0.2-2.0 [facility] Comment on above: Performed By: #### C BC #### [facility] [address] [place] [address] Dr. Evita Carrington EO # 0.1 103/ul Normal 0.0-0.7 [facility] Comment on above: Performed By: #### C BC #### [facility] [address] [place] [address] Dr. Evita Carrington Eosinophils/100 WBC (Bld) 0.9 % Normal 0.9-7.0 [facility] Comment on above: Performed By: #### C BC #### [facility] [address] [place] [address] Dr. Evita Carrington Erythrocyte distribution width (RBC) [Ratio] 14.4 % Normal 11.0-15.0 [facility] Comment on above: Performed By: #### C BC #### [facility] [address] [place] [address] Dr. Evita Carrington Hematocrit (Bld) [Volume fraction] 33.6 % Critically low 36.0-48.0 [facility] Comment on above: Performed By: #### C BC #### [facility] [address] [address] [address] Evita Carrington Hemoglobin (Bld) [Mass/Vol] 10.8 g/dL Critically low 12.0-16.0 [facility] Comment on above: Performed By: #### C BC #### [facility] [address] [place] [address] Dr. Evita Carrington IG # 0.06 10e3/ul Critically high 0.00-0.03 [facility] Comment on above: Performed By: #### C BC #### [facility] [address] [place] [address] Dr. Evita Carrington IG % 0.6 % Critically high 0.0-0.5 [facility] Comment on above: Performed By: #### C BC #### [facility] [address] [place] [address] Dr. Evita Carrington LYMPH # 2.1 103/ul Normal 1.2-3.8 [facility] Comment on above: Performed By: #### C BC #### [facility] [address] [place] [address] Dr. Evita Carrington Lymphocytes/100 WBC (Bld) 21.7 % Normal 20.5-60.0 [facility] Comment on above: Performed By: #### C BC #### [facility] [address] [place] [address] Dr. Evita Carrington MANUAL DIFF REQ NO Normal [facility] Comment on above: Performed By: #### C BC #### [facility] [address] [place] [address] Dr. Evita Carrington MCH (RBC) [Entitic mass] 26.1 pg Critically low 26.7-34.0 [facility] Comment on above: Performed By: #### C BC #### [facility] [address] [place] [address] Dr. Evita Carrington MCHC (RBC) [Mass/Vol] 32.1 g/dL Normal 29.9-35.2 [facility] Comment on above: Performed By: #### C BC #### [facility] [address] [address] [address] Evita Carrington MCV (RBC) [Entitic vol] 81.2 fL Normal 81.0-99.0 [facility] Comment on above: Performed By: #### C BC #### [facility] [address] [address] [address] Evita Carrington MONO # 0.7 103/ul Normal 0.3-0.8 [facility] Comment on above: Performed By: #### C BC #### [facility] [address] [address] [address] Evita Carrington Monocytes/100 WBC (Bld) 6.9 % Normal 1.7-12.0 [facility] Comment on above: Performed By: #### C BC #### [facility] [address] [place] [address] Dr. Evita Carrington NEUT # 6.6 103/ul Critically high 1.4-6.5 [facility] Comment on above: Performed By: #### C BC #### [facility] [address] [place] [address] Dr. Evita Carrington Neutrophils/100 WBC (Bld) 69.6 % Normal 43.0-75.0 [facility] Comment on above: Performed By: #### C BC #### [facility] [address] [place] [address] Dr. Evita Carrington Platelet mean volume (Bld) [Entitic vol] 10.6 fL Normal 9.5-13.5 [facility] Comment on above: Performed By: #### C BC #### [facility] [address] [place] [address] Dr. Evita Carrington PLT 255 103/ul Normal 150-450 [facility] Comment on above: Performed By: #### C BC #### [facility] [address] [place] [address] Dr. Evita Carrington RBC 4.14 106/ul Critically low 4.20-5.40 [facility] Comment on above: Performed By: #### C BC #### [facility] [address] [place] [address] Dr. Evita Carrington WBC 9.5 103/ul Normal 4.0-11.0 [facility] Comment on above: Performed By: #### C BC #### [facility] [address] [place] [address] Dr. Evita Carrington Covid-19 PCR ([facility])on 02-22 SARS-CoV-2 (COVID-19) RNA MELANY+probe Ql (Unsp spec) Not detected Normal NOT DETECTED [facility] Comment on above: Result Comment: When [...] for this test is supported by the [place] of Health and Human Service's declaration that [...] used). Performed By: #### C VDTBH #### [facility] [address] [place] [address] Dr. Evita Carrington DRUG SCREEN RAPID (URINE)on 03-12-2022 AMP Negative Normal NEGATIVE [facility] Comment on above: Performed By: #### D RUGRPD #### [facility] [address] [place] [address] Dr. Evita Carrington BAR Negative Normal NEGATIVE [facility] Comment on above: Performed By: #### D RUGRPD #### [facility] [address] [place] [address] Dr. Evita Carrington BUP Negative Normal NEGATIVE [facility] Comment on above: Performed By: #### D RUGRPD #### [facility] [address] [place] [address] Dr. Evita Carrington BZO Negative Normal NEGATIVE [facility] Comment on above: Performed By: #### D RUGRPD #### [facility] [address] [place] [address] Dr. Evita Carrington HERSON Negative Normal NEGATIVE [facility] Comment on above: Performed By: #### D RUGRPD #### [facility] [address] [place] [address] Dr. Evita Carrington CUT-OFFS SEE BELOW Normal [facility] Comment on above: Result Comment: [...] ng/mL Performed By: #### D RUGRPD #### [facility] [address] [place] [address] Dr. Evita Carrington DRUG CUT HEADER DRUG CLASS TEST SYSTEM CUT-OFF CONCENTRATIONS ARE FOLLOWS: Normal [facility] Comment on above: Performed By: #### D RUGRPD #### [facility] [address] [place] [address] Dr. Evita Carrington mAMP Negative Normal NEGATIVE [facility] Comment on above: Performed By: #### D RUGRPD #### [facility] [address] [place] [address] Dr. Evita Carrington MTD Negative Normal NEGATIVE [facility] Comment on above: Performed By: #### D RUGRPD #### [facility] [address] [place] [address] Dr. Evita Carrington OPI Negative Normal NEGATIVE [facility] Comment on above: Performed By: #### D RUGRPD #### [facility] [address] [place] [address] Dr. Evita Carrington OXY Negative Normal NEGATIVE [facility] Comment on above: Performed By: #### D RUGRPD #### [facility] [address] [place] [address] Dr. Evita Carrington PCP Negative Normal NEGATIVE [facility] Comment on above: Performed By: #### D RUGRPD #### [facility] [address] [place] [address] Dr. Evita Carrington PPX Negative Normal NEGATIVE [facility] Comment on above: Performed By: #### D RUGRPD #### [facility] [address] [place] [address] Dr. Evita Carrington TCA Negative Normal NEGATIVE [facility] Comment on above: Performed By: #### D RUGRPD #### [facility] [address] [place] [address] Dr. Evita Carrington THC Negative Normal NEGATIVE [facility] Comment on above: Performed By: #### D RUGRPD #### [facility] [address] [place] [address] Dr. Evita Carrington TYPE AND SCREENon 03-12-2022 TYPE AND SCREEN Negative Normal [facility] Comment on above: Performed By: #### C BC #### [facility] [address] [place] [address] Dr. Evita Carrington US PREG BIOPHY W [...] GÉNESIS WILDER Date: 2022-03-04 08:27 Normal [facility] CHLAMYDIA/GONOCOCCUS MELANY (SW AB/URINE/PAPon 02-16-2022 Chlamydia trachomatis, MELANY Negative Normal Negative [facility] Comment on above: Performed By: #### A FPMAT #### [facility] [address] [place] [address] Dr. Evita Carrington Neisseria gonorrhoeae, MELANY Negative Normal Negative [facility] Comment on above: Performed By: #### A FPMAT #### [facility] [address] [place] [address] Dr. Evita Carrington GROUP B STREP CULTUREon [...] F Tetracycline >=16 R F Normal [facility] Comment on above: Performed By: #### G BSCX #### [facility] [address] [place] [address] Dr. Evita Carrington VAGINITIS/VAGINOSIS DNA PROB Yoseph 02-14-2022 Jade species Negative Normal Negative [facility] Comment on above: Performed By: #### C BC #### [facility] [address] [place] [address] Dr. Evita Carrington Gardnerella vaginalis Negative Normal Negative [facility] Comment on above: Performed By: #### C BC #### [facility] [address] [place] [address] Dr. Evita Carrington Trichomonas vaginalis Negative Normal Negative [facility] Comment on above: Performed By: #### C BC #### [facility] [address] [place] [address] Dr. Evita Carrington TYPE AND SCREENon 02-11-2022 TYPE AND SCREEN Negative Normal [facility] Comment on above: Performed By: #### T NS #### [facility] [address] [place] [address] Dr. Evita Carrington GLUCOSE - 1HRon 12-03-2021 Glucose [Mass/Vol] 86 mg/dL Normal 74-106 [facility] Comment on above: Performed By: #### A FPMAT #### [facility] [address] [place] [address] Dr. Evita Carrington HEMOGRAM AND PLATELon 2021 Hematocrit (Bld) [Volume fraction] 32.2 % Critically low 36.0-48.0 [facility] Comment on above: Performed By: #### C BC #### [facility] [address] [place] [address] Dr. Evita Carrington Hemoglobin (Bld) [Mass/Vol] 10.4 g/dL Critically low 12.0-16.0 [facility] Comment on above: Performed By: #### C BC #### [facility] [address] [place] [address] Dr. Evita Carrington MCH (RBC) [Entitic mass] 28.5 pg Normal 26.7-34.0 [facility] Comment on above: Performed By: #### C BC #### [facility] [address] [place] [address] Dr. Evita Carrington MCHC (RBC) [Mass/Vol] 32.3 g/dL Normal 29.9-35.2 [facility] Comment on above: Performed By: #### C BC #### [facility] [address] [place] [address] Dr. Evita Carrington MCV (RBC) [Entitic vol] 88.2 fL Normal 81.0-99.0 [facility] Comment on above: Performed By: #### C BC #### [facility] [address] [place] [address] Dr. Evita Carrington PLT 230 103/ul Normal 150-450 [facility] Comment on above: Performed By: #### C BC #### [facility] [address] [place] [address] Dr. Evita Carrington RBC 3.65 106/ul Critically low 4.20-5.40 [facility] Comment on above: Performed By: #### C BC #### [facility] [address] [address] [address] Evita Carrington WBC 9.5 103/ul Normal 4.0-11.0 [facility] Comment on above: Performed By: #### C BC #### [facility] [address] [address] [address] Evita Carrington AFP MATERNAL FOR SPINA BIFID Aon 11-04-2021 AFP MoM 0.86 Normal [facility] Comment on above: Performed By: #### A FPMAT #### [facility] [address] [address] [address] Evita Carrington AFP Value 57.1 ng/mL Normal [facility] Comment on above: Performed By: #### A FPMAT #### [facility] [address] [address] [address] Evita Carrington AFP, Serum for Spina Bifida Report Normal [facility] Comment on above: Performed By: #### A FPMAT #### [facility] [address] [address] [address] Evita Carrington Comment Comment Normal [facility] Comment on above: Result Comment: Barak Correa, Ph.D., [facility] Director . References: Available Upon Request. . Multiples Of Median Cutoffs For AFP Elevations Pablo 2.5 Black 2.8 IDD 2.0 Twins 4.5 Abbreviation Definitions IDD - Insulin Dep Diabetes OSBR - Open Spina Bifida Risk . For further inquiries contact [employer] at [phone]. . This test was developed and its performance characteristics determined by [employer]. It has not been cleared or approved by the Food and Drug Administration. Performed By: #### A FPMAT #### [facility] [address] [address] [address] Evita Pierce Age Collection Date 21.6 weeks Normal [facility] Comment on above: Performed By: #### A FPMAT #### [facility] [address] [address] [address] Yilan Carrington Gestat, Age Based on LMP [facility] Comment on above: Result Comment: Reca lculations are not recommended when gestational dating by LMP and ultrasound are within 10 days. Performed By: #### A FPMAT #### [facility] [address] [place] [address] Dr. Evita Carrington Insulin Dep Diabetes No Normal [facility] Comment on above: Performed By: #### A FPMAT #### [facility] [address] [address] [address] Evita Carrington Interpretation Comment Normal [facility] Comment on above: Result Comment: Inte rpretation: [...] Customer Services to discuss available options. The [place] [employer] recommends amniocentesis be offered to women age 35 and older. Performed By: #### A FPMAT #### [facility] [address] [place] [address] Dr. Evita Carrington [age] Normal [facility] Comment on above: Performed By: #### A FPMAT #### [facility] [address] [place] [address] Dr. Evita Carrington Multiple Gestation No Normal [facility] Comment on above: Performed By: #### A FPMAT #### [facility] [address] [place] [address] Dr. Evita Carrington OS[place] [address] [facility] Comment on above: Performed By: #### A FPMAT #### [facility] [address] [place] [address] Dr. Evita Carrington PDF . Normal [facility] Comment on above: Performed By: #### A FPMAT #### [facility] [address] [place] [address] Dr. Evita Carrington Race Normal [facility] Comment on above: Performed By: #### A FPMAT #### [facility] [address] [address] [address] Evita Carrington Test Results: Negative Normal [facility] Comment on above: Performed By: #### A FPMAT #### [facility] [address] [address] [address] 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 Author Type: Design Director and Manager [employer] Type: ED Notes Filed: 10/16/2021 10:04 PM Note Text: Per Dr Vinson, OK to remove ring with ring cutter. Procedure took approximately 30 minutes of cutting. Ring removed @ 2200. Dr. Vinson aware. Pt had immediate relief of pain with ring removal. Pt given ice pack for pain relief. Normal [facility] CHLAMYDIA/GONOCOCCUS MELANY ( AB/URINE/PAPon 09-21-2021 Chlamydia trachomatis, MELANY Negative Normal Negative [facility] Comment on above: Performed By: #### A FPMAT #### [facility] [address] [place], [place] [address] Dr. Evita Carrington Neisseria gonorrhoeae, MELANY Negative Normal Negative [facility] Comment on above: Performed By: #### A FPMAT #### [facility] [address] [place] [address] Dr. Evita Carrington VAGINITIS/VAGINOSIS DNA PROB Yoseph 09-20-2021 Jade species Positive Abnormal Negative [facility] Comment on above: Performed By: #### V AGINT #### [facility] [address] [place] [address] Dr. Evita Carrington Gardnerella vaginalis Negative Normal Negative [facility] Comment on above: Performed By: #### V AGINT #### [facility] [address] [place] [address] Dr. Evita Carrington Trichomonas vaginalis Negative Normal Negative [facility] Comment on above: Performed By: #### V AGINT #### [facility] [address] [place] [address] Dr. Evita Carrington HEP B SURFACE ANTIGEN SCREEN on 08-23-2021 HBsAg Screen Negative Normal Negative [facility] Comment on above: Performed By: #### C BC #### [facility] [address] [place] [address] Dr. Evita Carrington HEPATITIS C VIRUS AB W/ REFL EX QUANTon 08-23-2021 HCV AB <0.1 Normal 0.0-0.9 [facility] [facility] Comment on above: Performed By: #### C BC #### [facility] [address] [place] [address] Dr. Evita Carrington Interpretation: Comment Normal [facility] Comment on above: Result Comment: Nega tive Not infected with HCV, unless recent infection is suspected or other evidence exists to indicate HCV infection. Performed By: #### C BC #### [facility] [address] [place] [address] Dr. Evita Carrington HIV 1 AND 2 WITH REFLEXon HIV Screen 4th Generation wRfx Non-Reactive Normal Non Reactive [facility] Comment on above: Result Comment: HIV Negative HIV-1/HIV-2 antibodies and HIV-1 p24 antigen were NOT detected. There is no laboratory evidence of HIV infection. Performed By: #### C BC #### [facility] [address] [place] [address] Dr. Evita Carrington RPR QUANTon 08-23-2021 Rapid Plasma Reagin, Quant Non-Reactive Normal NonRea<1:1 [facility] Comment on above: Result Comment: Sarah nolan Note: This test does not meet current guidelines for screening and diagnosis of syphilis. This test is intended for following treatment response in patients being treated for syphilis infection. To screen for syphilis infection, a reflex cascade that includes both RPR and a treponema-specific assay should be utilized, such as Treponema pallidum (Syphilis) Screening [place] (288651) or Rapid Plasma Reagin (RPR) Test With Reflex to Quantitative RPR and Confirmatory Treponema pallidum Antibodies (211382). Performed By: #### R PRQ #### [facility] [address] [place] [address] Dr. Evita Carrington RUBELLA AB IGGon 08-23-2021 Rubella Antibodies, IgG 1.41 index Normal Immune >0.99 [facility] Comment on above: Result Comment: Non- immune <0.90 Equivocal 0.90 - 0.99 Immune >0.99 Performed By: #### A FPMAT #### [facility] [address] [place] [address] Dr. Evita Carrington CBC AUTO DIFFon 08-22-2021 BASO # 0.0 103/ul Normal 0.0-0.1 [facility] Comment on above: Performed By: #### A FPMAT #### [facility] [address] [place] [address] Dr. Evita Carrington Basophils/100 WBC (Bld) 0.4 % Normal 0.2-2.0 [facility] Comment on above: Performed By: #### A FPMAT #### [facility] [address] [place] [address] Dr. Evita Carrington EO # 0.1 103/ul Normal 0.0-0.7 [facility] Comment on above: Performed By: #### A FPMAT #### [facility] [address] [place] [address] Dr. Evita Carrington Eosinophils/100 WBC (Bld) 0.7 % Critically low 0.9-7.0 [facility] Comment on above: Performed By: #### A FPMAT #### [facility] [address] [place] [address] Dr. Evita Carrington Erythrocyte distribution width (RBC) [Ratio] 14.3 % Normal 11.0-15.0 [facility] Comment on above: Performed By: #### A FPMAT #### [facility] [address] [place] [address] Dr. Evita Carrington Hematocrit (Bld) [Volume fraction] 35.4 % Critically low 36.0-48.0 [facility] Comment on above: Performed By: #### A FPMAT #### [facility] [address] [place] [address] Dr. Evita Carrington Hemoglobin (Bld) [Mass/Vol] 11.6 g/dL Critically low 12.0-16.0 [facility] Comment on above: Performed By: #### A FPMAT #### [facility] [address] [place] [address] Dr. Evita Carrington IG # 0.02 10e3/ul Normal 0.00-0.03 [facility] Comment on above: Performed By: #### A FPMAT #### [facility] [address] [place] [address] Dr. Evita Carrington IG % 0.3 % Normal 0.0-0.5 [facility] Comment on above: Performed By: #### A FPMAT #### [facility] [address] [place] [address] Dr. Evita Carrington LYMPH # 1.7 103/ul Normal 1.2-3.8 [facility] Comment on above: Performed By: #### A FPMAT #### [facility] [address] [place] [address] Dr. Evita Carrington Lymphocytes/100 WBC (Bld) 24.1 % Normal 20.5-60.0 [facility] Comment on above: Performed By: #### A FPMAT #### [facility] [address] [place] [address] Dr. Evita Carrington MANUAL DIFF REQ NO Normal [facility] Comment on above: Performed By: #### A FPMAT #### [facility] [address] [place] [address] Dr. Evita Carrington MCH (RBC) [Entitic mass] 27.6 pg Normal 26.7-34.0 [facility] Comment on above: Performed By: #### A FPMAT #### [facility] [address] [place] [address] Dr. Evita Carrington MCHC (RBC) [Mass/Vol] 32.8 g/dL Normal 29.9-35.2 [facility] Comment on above: Performed By: #### A FPMAT #### [facility] [address] [place] [address] Dr. Evita Carrington MCV (RBC) [Entitic vol] 84.3 fL Normal 81.0-99.0 [facility] Comment on above: Performed By: #### A FPMAT #### [facility] [address] [place] [address] Dr. Evita Carrington MONO # 0.4 103/ul Normal 0.3-0.8 [facility] Comment on above: Performed By: #### A FPMAT #### [facility] [address] [place] [address] Dr. Evita Carrington Monocytes/100 WBC (Bld) 5.9 % Normal 1.7-12.0 [facility] Comment on above: Performed By: #### A FPMAT #### [facility] [address] [place] [address] Dr. Evita Carrington NEUT # 4.7 103/ul Normal 1.4-6.5 [facility] Comment on above: Performed By: #### A FPMAT #### [facility] [address] [place] [address] Dr. Evita Carrington Neutrophils/100 WBC (Bld) 68.6 % Normal 43.0-75.0 [facility] Comment on above: Performed By: #### A FPMAT #### [facility] [address] [place] [address] Dr. Evita Carrington Platelet mean volume (Bld) [Entitic vol] 10.6 fL Normal 9.5-13.5 [facility] Comment on above: Performed By: #### A FPMAT #### [facility] [address] [place] [address] Dr. Evita Carrington PLT 268 103/ul Normal 150-450 [facility] Comment on above: Performed By: #### A FPMAT #### [facility] [address] [place] [address] Dr. Evita Carrington RBC 4.20 106/ul Normal 4.20-5.40 [facility] Comment on above: Performed By: #### A FPMAT #### [facility] [address] [place] [address] Dr. Evita Carrington WBC 6.9 103/ul Normal 4.0-11.0 [facility] Comment on above: Performed By: #### A FPMAT #### [facility] [address] [place] [address] Dr. Evita Crarington CULTURE URINEon 08-22-2021 CULTURE URINE Culture Observations: LIGHT GROWTH OF MIXED GENITAL DONALD. NO POTENTIAL PATHOGENS SEEN. Normal [facility] Comment on above: Performed By: #### C BC #### [facility] [address] [place] [address] Dr. Evita Carrington GLYCOHEMOGLOBIN A1Con 2021 ADA RECOMMENDATION SEE BELOW Normal [facility] Comment on above: Result Comment: ADA RECOMMENDED LIMIT 4.0 - 6.0 ADA THERAPEUTIC TARGET < 7.0 ACTION SUGGESTED > 7.0 Performed By: #### A FPMAT #### [facility] [address] [place] [address] Dr. Evita Carrington Glucose [Mass/Vol] 103 mg/dL Normal [facility] Comment on above: Performed By: #### A FPMAT #### [facility] [address] [place] [address] Dr. Evita Carrington HbA1c (Bld) [Mass fraction] 5.2 % Normal 4.5-6.2 [facility] Comment on above: Performed By: #### A FPMAT #### [facility] [address] [place] [address] Dr. Evita Carrington LORAINE BOX TEST PT SEND OUTo n 08-22-2021 SENT TO REF LAB 08/22/2021 Normal [facility] Comment on above: Performed By: #### C BC #### [facility] [address] [address] [address] Evita Carrington TYPE AND SCREENon 08-22-2021 TYPE AND SCREEN Negative Normal [facility] Comment on above: Performed By: #### T NS #### [facility] [address] [address] [address] Evita Carrington Vital Signs Date Time Vital Sign Value Performing Clinician Facility 05-13-2024 10:09-0500 Body mass index (BMI) [Ratio] 25.44 kg/m2 Bhumika OTTO Work Phone: [facility] 05-13-2024 10:09-0500 Body weight 77.02 kg Bhumika OTTO Work Phone: [facility] 05-13-2024 10:09-0500 Diastolic blood pressure 60 mm[Hg] Bhumika OTTO Work Phone: [facility] 05-13-2024 10:09-0500 Systolic blood pressure 100 mm[Hg] Bhumika OTTO Work Phone: [facility] 04-27-2024 03:30-0500 Diastolic blood pressure 52 mm[Hg] Kakeylainn Dokken [facility] 04-27-2024 03:30-0500 Heart rate 84 /min CEL-SCIylinn Dokken [facility] 04-27-2024 03:30-0500 Mean blood pressure 71 mm[Hg] Kaylinn Dokken [facility] 04-27-2024 03:30-0500 Respiratory rate 18 /min CEL-SCIFluorofindern Dokken [facility] 04-27-2024 03:30-0500 SaO2% (BldA) [Mass fraction] 99 % Kaylinn Dokken [facility] 04-27-2024 03:30-0500 Systolic blood pressure 109 mm[Hg] Kaylinn Dokken [facility] 04-27-2024 03:00-0500 Diastolic blood pressure 48 mm[Hg] Kaylinn Dokken [facility] 04-27-2024 03:00-0500 Heart rate 89 /min Kaylinn Dokken [facility] 04-27-2024 03:00-0500 Mean blood pressure 64 mm[Hg] Kaylinn Dokken [facility] 04-27-2024 03:00-0500 Respiratory rate 13 /min Kaylinn Dokken [facility] 04-27-2024 03:00-0500 SaO2% (BldA) [Mass fraction] 98 % Kaylinn Dokken [facility] 04-27-2024 03:00-0500 Systolic blood pressure 96 mm[Hg] Kaylinn Dokken [facility] 04-27-2024 02:30-0500 Diastolic blood pressure 75 mm[Hg] Kaylinn Dokken [facility] 04-27-2024 02:30-0500 Heart rate 90 /min Kaylinn Dokken [facility] 04-27-2024 02:30-0500 Mean blood pressure 85 mm[Hg] Kaylinn Dokken [facility] 04-27-2024 02:30-0500 Respiratory rate 14 /min Kaylinn Dokken [facility] 04-27-2024 02:30-0500 SaO2% (BldA) [Mass fraction] 99 % Angelica Virk [facility] 04-27-2024 02:30-0500 Systolic blood pressure 105 mm[Hg] Angelica Kellyen [facility] 04-27-2024 01:07-0500 Body temperature 98.24 [degF] Angelica Virk [facility] 04-27-2024 01:07-0500 Heart rate 92 /min Angelica Virk [facility] 04-27-2024 01:07-0500 Respiratory rate 16 /min Angelica Virk [facility] 08-28-2023 18:21-0400 Body height 167.64 cm MD Tony Roberson Work Phone: [facility] 08-28-2023 18:21-0400 Body mass index (BMI) [Ratio] 25.4 kg/m2 MD Tony Roberson Work Phone: [facility] 08-28-2023 18:21-0400 Body temperature 98.3 [degF] MD Tony Roberson Work Phone: [facility] 08-28-2023 18:21-0400 Body weight 71.66 kg MD Tony Roberson Work Phone: [facility] 08-28-2023 18:21-0400 Diastolic blood pressure 70 mm[Hg] MD Tony Roberson Work Phone: [facility] 08-28-2023 18:21-0400 Heart rate 71 /min MD Tony Roberson Work Phone: [facility] 08-28-2023 18:21-0400 Respiratory rate 18 /min MD Tony Roberson Work Phone: [facility] 08-28-2023 18:21-0400 SaO2% (BldA) [Mass fraction] 97 % MD Tony Roberson Work Phone: [facility] 08-28-2023 18:21-0400 Systolic blood pressure 107 mm[Hg] MD Tony Roberson Work Phone: [facility] 06-15-2023 10:39-0400 Body height 167.64 cm MD Tony Rboerson Work Phone: [facility] 06-15-2023 10:39-0400 Body mass index (BMI) [Ratio] 26.6 kg/m2 MD Tony Roberson Work Phone: [facility] 06-15-2023 10:39-0400 Body temperature 97.5 [degF] MD Tony Roberson Work Phone: [facility] 06-15-2023 10:39-0400 Body weight 74.95 kg MD Tony Roberson Work Phone: [facility] 06-15-2023 10:39-0400 Diastolic blood pressure 69 mm[Hg] MD Tony Roberson Work Phone: [facility] 06-15-2023 10:39-0400 Heart rate 55 /min MD Tony Roberson Work Phone: [facility] 06-15-2023 10:39-0400 Respiratory rate 16 /min MD Tony Roberson Work Phone: [facility] 06-15-2023 10:39-0400 SaO2% (BldA) [Mass fraction] 99 % MD Tony Roberson Work Phone: [facility] 06-15-2023 10:39-0400 Systolic blood pressure 116 mm[Hg] MD Tony Roberson Work Phone: [facility] 01-08-2023 13:40-0400 Body height 167.64 cm Maegan Crowder Other [facility] Other 01-08-2023 13:40-0400 Body mass index (BMI) [Ratio] 27.27 kg/m2 Maegan Vel Other [facility] Other 01-08-2023 13:40-0400 Body weight 76.66 kg Maegan Vel Other [facility] Other 01-08-2023 13:40-0400 Diastolic blood pressure 78 mm[Hg] Maegan Vel Other [facility] Other 01-08-2023 13:40-0400 SaO2% (BldA) [Mass fraction] 98 % Maegan Vel Other [facility] Other 01-08-2023 13:40-0400 Systolic blood pressure 122 mm[Hg] Maegan Vel Other [facility] Other 12-27-2022 10:45-0400 Body height 167.64 cm Tony Roberson Other [facility] Other 12-27-2022 10:45-0400 Body mass index (BMI) [Ratio] 27.27 kg/m2 Tony Roberson Other [facility] Other 12-27-2022 10:45-0400 Body weight 76.66 kg Tony Roberson Other [facility] Other 12-27-2022 10:45-0400 Diastolic blood pressure 64 mm[Hg] Tony Roberson Other [facility] Other 12-27-2022 10:45-0400 Systolic blood pressure 109 mm[Hg] Tony Roberson Other [facility] Other 10-29-2022 14:45-0400 Body height 167.64 cm Tony Roberson Other [facility] Other 10-29-2022 14:45-0400 Body mass index (BMI) [Ratio] 31.63 kg/m2 Tony Roberson Other [facility] Other 10-29-2022 14:45-0400 Body weight 88.91 kg Tony Roberson Other [facility] Other 10-29-2022 14:45-0400 Diastolic blood pressure 75 mm[Hg] Tony Roberson Other [facility] Other 10-29-2022 14:45-0400 Systolic blood pressure 111 mm[Hg] Tony Roberson Other [facility] Other 10-03-2022 14:30-0400 Body height 167.64 cm Tony Roberson Other [facility] Other 10-03-2022 14:30-0400 Body mass index (BMI) [Ratio] 29.53 kg/m2 Tony Roberson Other [facility] Other 10-03-2022 14:30-0400 Body weight 83.01 kg Tony Roberson Other [facility] Other 10-03-2022 14:30-0400 Diastolic blood pressure 58 mm[Hg] Tony Roberson Other [facility] Other 10-03-2022 14:30-0400 SaO2% (BldA) [Mass fraction] 98 % Tony Roberson Other [facility] Other 10-03-2022 14:30-0400 Systolic blood pressure 106 mm[Hg] Tony Roberson Other [facility] Other 07-01-2022 12:45-0400 Body height 167.64 cm Tony Roberson Other [facility] Other 07-01-2022 12:45-0400 Body mass index (BMI) [Ratio] 30.18 kg/m2 Tony Roberson Other [facility] Other 07-01-2022 12:45-0400 Body weight 84.82 kg Tony Roberson Other [facility] Other 07-01-2022 12:45-0400 Diastolic blood pressure 70 mm[Hg] Tony Roberson Other [facility] Other 07-01-2022 12:45-0400 SaO2% (BldA) [Mass fraction] 97 % Tony Roberson Other [facility] Other 07-01-2022 12:45-0400 Systolic blood pressure 116 mm[Hg] Tony Roberson Other [facility] Other 05-27-2022 14:10-0500 Body height 167.64 cm Alyssa Tong Other [facility] Other 05-27-2022 14:10-0500 Body mass index (BMI) [Ratio] 30.66 kg/m2 Alyssa Tong Other [facility] Other 05-27-2022 14:10-0500 Body temperature 98.9 [degF] Alyssa Tong Other [facility] Other 05-27-2022 14:10-0500 Body weight 86.18 kg Alyssa Fortune Other [facility] Other 05-27-2022 14:10-0500 Diastolic blood pressure 61 mm[Hg] Alyssa Fortune Other [facility] Other 05-27-2022 14:10-0500 Respiratory rate 18 /min Alyssa Fortune Other [facility] Other 05-27-2022 14:10-0500 SaO2% (BldA) [Mass fraction] 98 % Alyssa Fortune Other [facility] Other 05-27-2022 14:10-0500 Systolic blood pressure 117 mm[Hg] Alyssa Fortune Other [facility] Other 04-24-2022 11:10-0500 Body height 173.99 cm JOE NELIA Other [facility] Other 04-24-2022 11:10-0500 Body mass index (BMI) [Ratio] 29.78 kg/m2 JOE NELIA Other [facility] Other 04-24-2022 11:10-0500 Body weight 90.18 kg JOE NELIA Other [facility] Other 04-24-2022 11:10-0500 Body weight 90.17 kg JOE NELIA Other [facility] Other 04-24-2022 11:10-0500 Diastolic blood pressure 70 mm[Hg] JOE NELIA Other [facility] Other 04-24-2022 11:10-0500 Systolic blood pressure 120 mm[Hg] JOE NELIA Other [facility] Other 03-06-2022 12:00-0500 Body height 173.99 cm JOE NELIA Other [facility] Other 03-06-2022 12:00-0500 Body mass index (BMI) [Ratio] 32.57 kg/m2 JOE NELIA Other [facility] Other 03-06-2022 12:00-0500 Body weight 98.61 kg JOE NELIA Other [facility] Other 03-06-2022 12:00-0500 Diastolic blood pressure 74 mm[Hg] JOE NELIA Other [facility] Other 03-06-2022 12:00-0500 Systolic blood pressure 100 mm[Hg] OJE NELIA Other [facility] Other 02-26-2022 15:10-0500 Body height 173.99 cm JOE NELIA Other [facility] Other 02-26-2022 15:10-0500 Body mass index (BMI) [Ratio] 32.33 kg/m2 JOE NELIA Other [facility] Other 02-26-2022 15:10-0500 Body weight 97.89 kg JOE NELIA Other [facility] Other 02-26-2022 15:10-0500 Diastolic blood pressure 78 mm[Hg] JOE NELIA Other [facility] Other 02-26-2022 15:10-0500 Systolic blood pressure 116 mm[Hg] JOE NELIA Other [facility] Other 02-19-2022 11:00-0500 Body height 173.99 cm BHUMIKA LICEA Other [facility] Other 02-19-2022 11:00-0500 Body mass index (BMI) [Ratio] 31.91 kg/m2 BHUMIKA LICEA Other [facility] Other 02-19-2022 11:00-0500 Body weight 96.62 kg BHUMIKA LICEA Other [facility] Other 02-19-2022 11:00-0500 Diastolic blood pressure 72 mm[Hg] BHUMIKA LICEA Other [facility] Other 02-19-2022 11:00-0500 Systolic blood pressure 120 mm[Hg] BHUMIKA LICEA Other [facility] Other 02-12-2022 11:00-0500 Body height 173.99 cm JOE NELIA Other [facility] Other 02-12-2022 11:00-0500 Body mass index (BMI) [Ratio] 32.03 kg/m2 JOE NELIA Other [facility] Other 02-12-2022 11:00-0500 Body weight 96.98 kg JOE SKINNER Other [facility] Other 02-12-2022 11:00-0500 Diastolic blood pressure 84 mm[Hg] JOE SKINNER Other [facility] Other 02-12-2022 11:00-0500 Systolic blood pressure 120 mm[Hg] JOE SKINNER Other [facility] Other 11-04-2021 02:06-0400 Body weight 81.[address] JOE SKINNER . [facility] Comment on above: Performed By: #### AFPMAT #### [facility] [address] [place] [address] Dr. Evita Carrington 03-29-2021 14:15-0500 Body height 173.99 cm KAMRYN VISCI Other [facility] Other 03-29-2021 14:15-0500 Body mass index (BMI) [Ratio] 26.61 kg/m2 KAMRYN VISCI Other [facility] Other 03-29-2021 14:15-0500 Body weight 80.56 kg KAMRYN VISCI Other [facility] Other 03-29-2021 14:15-0500 Diastolic blood pressure 78 mm[Hg] KAMRYN VISCI Other [facility] Other 03-29-2021 14:15-0500 Systolic blood pressure 120 mm[Hg] KAMRYN VISCI Other [facility] Other Encounters Encounter Date Encounter Type Care Provider Facility Start: 05-13-2024 End: 05-13-2024 Bamboo flowsheet Bhumika OTTO Work Phone: [facility] Start: 05-13-2024 End: 05-13-2024 Bamboo flowsheet Bhumika OTTO Work Phone: [facility] Start: 05-13-2024 End: 05-13-2024 Office outpatient visit 15 minutes Bhumika OTTO Work Phone: [facility] Comment on above: Breast discharge; Menorrhagia with regular cycle; Nipple discharge Start: 05-13-2024 End: 05-13-2024 ambulatory BHUMIKA LICEA Not Available Start: 04-27-2024 End: 04-27-2024 Emergency department patient visit Angelica Da Silva Sully [facility] Start: 10-02-2023 End: 10-02-2023 Discharged Recurring MD Tony Roberson Work Phone: [facility] Start: 10-02-2023 End: 10-02-2023 ambulatory MD Tony Roberson Work Phone: [facility] Work Phone: Start: 09-15-2023 Non-patient / Non-visit MD Tony Roberson Work Phone: [facility] Work Phone: Start: 09-15-2023 End: 09-15-2023 ambulatory JOE SKINNER Not Available Start: 08-28-2023 End: 08-28-2023 ambulatory MD Tony Roberson Work Phone: [facility] Work Phone: Start: 08-28-2023 End: 08-28-2023 Patient encounter procedure MD Tony Roberson Work Phone: [facility] [employer] Work Phone: Start: 08-04-2023 Non-patient / Non-visit MD Tony Roberson Work Phone: [facility] Work Phone: Start: 08-04-2023 End: 08-04-2023 ambulatory BHUMIKA LICEA Not Available Start: 06-15-2023 End: 06-15-2023 ambulatory MD Tony Roberson Work Phone: [facility] Work Phone: Start: 06-15-2023 End: 06-15-2023 Patient encounter procedure MD oTny Roberson Work Phone: [facility] Work Phone: Start: 03-05-2023 End: 03-05-2023 ambulatory Maegan Crowder Other [facility] Other Start: 03-05-2023 Telephone encounter Maegan DACOSTA [facility] Start: 01-22-2023 End: 01-22-2023 ambulatory Maegan Crowder Other [facility] Other Start: 01-22-2023 Telephone encounter Maegan DACOSTA G Card[facility] Start: 01-09-2023 End: 01-09-2023 ambulatory Maegan Crowder Other [facility] Other Start: 01-09-2023 Telephone encounter Maegan DACOSTA G [employer] Start: 01-08-2023 End: 01-08-2023 ambulatory Maegan Crowder Other [facility] Other Start: 01-08-2023 Office outpatient ne w 30 minutes Maegan Crowder [facility] Start: 01-08-2023 Telephone encounter Tony CASTANON [facility] Start: 12-27-2022 End: 12-27-2022 ambulatory Tony Roberson Other [facility] Other Start: 12-27-2022 Office outpatient visit 15 minutes Tony Roberson [facility] Start: 12-05-2022 End: 12-05-2022 ambulatory Tony Roberson Other [facility] Other Start: 12-05-2022 Telephone encounter Tony Karol [facility] Start: 10-29-2022 End: 10-29-2022 ambulatory Tony Roberson Other [facility] Other Start: 10-29-2022 Office outpatient visit 15 minutes Tony Roberson [facility] Start: 10-03-2022 End: 10-03-2022 ambulatory Tony Roberson Other [facility] Other Start: 10-03-2022 Office outpatient visit 15 minutes Tony Roberson [facility] Start: 08-15-2022 End: 08-15-2022 ambulatory Tony Roberson Other [facility] Other Start: 08-15-2022 Telephone encounter Tony Roberson [facility] [employer] Start: 08-01-2022 End: 08-01-2022 ambulatory BHUMIKA LICEA . Facility: Start: 07-25-2022 End: 07-25-2022 ambulatory Tony Roberson Other [facility] Other Start: 07-25-2022 Telephone encounter Tony Roberson [facility] Start: 07-01-2022 End: 07-01-2022 ambulatory Tony Roberson Other [facility] Other Start: 07-01-2022 Office outpatient visit 15 minutes Tony Roberson [facility] Start: 05-27-2022 End: 05-27-2022 ambulatory Alyssa Fortune Other [facility] Other Start: 05-27-2022 Office outpatient visit 15 minutes Alyssa Fortune [facility] Start: 04-24-2022 (PP) Post Visit JOE [place] [address] Start: 04-24-2022 End: 04-24-2022 ambulatory JOE SKINNER Other [facility] Other Start: 03-12-2022 End: 03-13-2022 Evaluation and management of inpatient DR JOE SKINNER . Facility:[facility] Start: 03-06-2022 ([facility] JOE [place] [address] 02 [address] Start: 03-06-2022 End: 03-06-2022 ambulatory JOE SKINNER Other [facility] Other Start: 03-02-2022 End: 03-02-[address] MAXIMO RUANO . Facility:[facility] Start: 02-26-2022 ([facility]) [facility] JOE [place] 1 02 C Start: 02-26-2022 End: 02-26-2022 ambulatory JOE SKINNER Other [facility] Other Start: 02-19-2022 ([facility] BHUMIKA [place] 1 02 C Start: 02-19-2022 End: 02-19-2022 ambulatory BHUMIKA LICEA Other [facility] Other Start: 02-12-2022 ([facility]) [facility] JOE [place] 1 02 C Start: 02-12-2022 End: 02-12-[address] JOE SKINNER . [facility] Other Start: 02-11-2022 End: 02-12-[address] JOE SKINNER . Facility:[facility] Start: 01-31-2022 End: 01-31-2022 ambulatory JOE SKINNER Other [facility] Other Start: 01-31-2022 Telephone encounter JOE alonso 102 [address] Start: 12-03-2021 End: 12-04-[address] JOE SKINNER . Facility:[facility] Start: 11-02-2021 End: 11-03-[address] JOE SKINNER . Facility:[facility] Start: 10-25-2021 End: 10-26-[address] JOE SKINNER . Facility:[facility] Start: 09-18-2021 End: 09-18-[address] JOE SKINNER . Facility:[facility] Start: 08-22-2021 End: 08-23-[address] JOE SKINNER . Facility:[facility] Start: 03-29-2021 (PP) Post Visit KAMRYN RAMBOKaren [place] [address] Start: 03-29-2021 End: 03-29-2021 ambulatory KAMRYN KWABENA Other [facility] Other Start: 03-07-2021 End: 03-07-2021 ambulatory KAMRYN RICKSKaren Other [facility] Other Start: 03-07-2021 Telephone encounter KAMRYN YUAN [facility] Start: 02-27-2021 (PROC) Procedure KAMRYN YUAN [facility] Start: 02-27-2021 End: 02-27-2021 ambulatory KAMRYN YUAN Other [facility] Other Start: 02-26-2021 ([facility] KAMRYN Mcgovern [address] Start: 02-26-2021 End: 02-26-2021 ambulatory UNKNOWN [facility] Start: 02-26-2021 Encounter by janelle calero UNKNOWN [facility] [place] [address] Start: 02-19-2021 (PN) [facility] KAMRYN KWABENA [place] [address] Start: 02-19-2021 End: 02-19-2021 ambulatory KAMRYN YUAN Other [facility] Other Start: 02-12-2021 ([facility] KAMRYN VISCI [place] [address] Start: 02-12-2021 End: 02-12-2021 ambulatory KAMRYN VISCI Other [facility] Other Start: 02-05-2021 ([facility] KAMRYN VISCI [place] [address] Start: 02-05-2021 End: 02-05-2021 ambulatory KAMRYN VISCI Other [facility] Other Start: 01-29-2021 ([facility] KAMRYN VISCI [place] [address] Start: 01-29-2021 End: 01-29-2021 ambulatory KAMRYN VISCI Other [facility] Other Start: 01-24-2021 (OB over 14) OB over 14 weeks KAMRYN VISCI [place] [address] Start: 01-24-2021 ([facility] KAMRYN VISCI [place] [address] Start: 01-24-2021 End: 01-24-2021 ambulatory KAMRYN VISCI Other [facility] Other Start: 01-15-2021 ([facility] BAUDILIO CHACON [place] 2 500 210 Start: 01-15-2021 End: 01-15-2021 ambulatory BAUDILIO CHACON Other [facility] Other Start: 01-08-2021 End: 01-08-2021 ambulatory KAMRYN VISCI Other [facility] Other Start: 01-08-2021 Telephone encounter KAMRYN VISCI [place] [address] Start: 01-05-2021 End: 01-05-2021 ambulatory KAMRYN VISCI Other [facility] Other Start: 01-05-2021 Telephone encounter KAMRYN VISCI [place] [address] Start: 01-01-2021 ([facility] KAMRYN RICKSI [place] [address] Start: 01-01-2021 End: 01-01-2021 ambulatory KAMRYN VISCI Other [facility] Other Start: 12-18-2020 ([facility] KAMRYN RICKSI [place] [address] Start: 12-18-2020 End: 12-18-2020 ambulatory KAMRYN VISCI Other [facility] Other Start: 12-04-2020 ([facility] AKMRYN VISCI [place] [address] Start: 12-04-2020 End: 12-04-2020 ambulatory KAMRYN VISCI Other [facility] Other Start: 11-28-2020 End: 11-28-2020 ambulatory KAMRYN VISCI Other [facility] Other Start: 11-28-2020 Telephone encounter KAMRYN RICKSI [place] [address] Start: 11-23-2020 End: 11-23-2020 ambulatory KAMRYN VISCI Other [facility] Other Start: 11-23-2020 Telephone encounter KAMRYN RICKSI [place] [address] Start: 11-06-2020 ([facility] KAMRYN VISCI [place] [address] Start: 11-06-2020 End: 11-06-2020 ambulatory KAMRYN VISCI Other [facility] Other Start: 10-29-2020 End: 10-29-2020 ambulatory KAMRYN VISCI Other [facility] Other Start: 10-29-2020 Encounter by janelle r link KAMRYN RICKSI [place] [address] Start: 10-09-2020 (OB over 14) OB over 14 weeks KAMRYN VISCI [place] [address] Start: 10-09-2020 ([facility] KAMRYN RAMBOI [place] [address] Start: 10-09-2020 End: 10-09-2020 ambulatory KAMRYN RICKSI Other [facility] Other Start: 10-06-2020 End: 10-06-2020 ambulatory UNKNOWN [facility] Start: 10-06-2020 Encounter by compute r link UNKNOWN [facility] [place] [address] Start: 09-20-2020 End: 09-20-2020 ambulatory KAMRYN RICKSI Other [facility] Other Start: 09-20-2020 Telephone encounter KAMRYN YUAN [place] [address] Start: 09-04-2020 ([facility] KAMRYN [place] [address] Start: 09-04-2020 End: 09-04-2020 ambulatory KAMRYN RICKSI Other [facility] Other Start: 08-11-2020 (OB over 14) OB over 14 weeks KAMRYN Rendony [address] Start: 08-11-2020 End: 08-11-2020 ambulatory KAMRYN VISCI Other [facility] Other Start: 08-01-2020 End: 08-01-2020 ambulatory UNKNOWN [facility] Start: 08-01-2020 Encounter by compute r link UNKNOWN [facility] [place] [address] Start: 07-04-2020 End: 07-04-2020 ambulatory UNKNOWN [facility] Start: 07-04-2020 Encounter by compute r link UNKNOWN [facility] [place] [address] Start: 07-04-2020 Telephone encounter KAMRYN RICKSI [place] [address] Start: 06-26-2020 End: 06-26-2020 ambulatory KAMRYN VISCI Other [facility] Other Start: 06-26-2020 Telephone encounter KAMRYN YUAN [place] [address] Procedures Date Procedure Procedure Detail Performing Clinician Start: 08-28-2023 Quick Strep (POC) MD Brannon Roberson Work Phone: Start: 06-15-2023 Plain X-ray of right shoulder MD Tony Roberson Work Phone: Start: 03-12-2022 Delivery of Products of Conception, External Approach DR JOE SKINNER . Start: 03-12-2022 Drainage of Amniotic Fluid, Therapeutic from Products of Conception, Via Natural or Artificial Opening DR JOE SKINNER . Start: 03-12-2022 Introduction of Othe r Hormone into Peripheral Vein, Percutaneous Approach DR JOE SKINNER . Plan of Treatment Date Care Activity Detail Author Start: 09-20-2024 End: 09-20-2024 Patient encounter procedure 09/20/2024 10:00 AM EDT Office Visit [facility] [address] [id number] Joe Skinner, DO [address] [place] [address] [facility] Start: 06-10-2024 End: 06-10-2024 Patient encounter procedure 06/10/2024 10:50 AM EDT Office Visit [facility] [address] [phone] Joe Skinner, DO [address] [place] [address] [facility] Start: 05-13-2024 End: 05-13-2025 aPTT in Blood by Coagulation assay APTT Lab Routine Menorrhagia with regular cycle Expected: 05/13/2024 (Approximate), Expires: 05/13/2025 [facility] Comment on above: Expected: 05/13/2024 (Approximate), Expires: 05/13/2025 Start: 05-13-2024 End: 07-11-2025 US Breast - right Right breast US complete Imaging Routine Breast discharge Nipple discharge Expected: 05/13/2024, Expires: 07/11/2025 [facility] Comment on above: Expected: 05/13/2024 , Expires: 07/11/2025 Start: 05-13-2024 End: 05-13-2025 US Pelvis US Pelvis w/ TV Imaging Routine Menorrhagia with regular cycle Expected: 05/13/2024, Expires: 05/13/2025 [facility] Work Phone: Comment on above: Expected: 05/13/2024 , Expires: 05/13/2025 Start: 05-13-2024 End: 05-13-2024 Patient encounter procedure 05/13/2024 9:40 AM EST Office Visit [facility] OB [address] [phone] Bhumika Licea PA [address] [place] [address] Arrived [facility] Comment on above: Arrived CBC W Auto Different ial panel - Blood CBC and differential Lab Routine Menorrhagia with regular cycle Ordered: 05/13/2024 [facility] Comment on above: Ordered: 05/13/2024 hCG, quantitative, hCG, quantitative, Lab Routine Menorrhagia with regular cycle Ordered: 05/13/2024 [facility] Comment on above: Ordered: 05/13/2024 Hemoglobin A1c/Hemoglobin.total in Blood Hemoglobin A1c Lab Routine Menorrhagia with regular cycle Ordered: 05/13/2024 [facility] Comment on above: Ordered: 05/13/2024 Prothrombin time (PT ) in Blood by Coagulation assay Protime-INR Lab Routine Menorrhagia with regular cycle Ordered: 05/13/2024 [facility] Comment on above: Ordered: 05/13/2024 Thyrotropin [Units/volume] in Serum or Plasma TSH Lab Routine Menorrhagia with regular cycle Ordered: 05/13/2024 [facility] Comment on above: Ordered: 05/13/2024 Thyroxine (T4) free [Mass/volume] in Serum or Plasma T4, free Lab Routine Menorrhagia with regular cycle Ordered: 05/13/2024 [facility] Comment on above: Ordered: 05/13/2024 XR Shoulder - right Views [facility] Immunizations Immunization Date Immunization Notes Care Provider Fa cility NEGATED: Highlighted row has not occurred!02-27-2021 tetanus toxoid, reduced diphtheria toxoid, and acellular pertussis vaccine, adsorbed MD Tony Roberson Work Phone: [facility] Payers Date Payer Category Payer Unknown 2023 Self-pay [id number] 2023 Private Health Insurance [employer] [id number] 2023 Private Health Insurance [facility] [id number] 1995 Unknown [id number] .[id number]. 593 1995 Unknown [id number] [id number]. 593 1995 Unknown [id number] 2.0.1.113998.3.579.2. 593 1995 Unknown [id number] .1.939804.3.579.2. 593 1995 Unknown [id number] 2.0.1.791293.3.579.2. 593 1995 Unknown [id number] 2.16.840.1.501497.3.579.2. 593 1995 Unknown [id number] 2.16.840.1.348787.3.579.2. 593 1995 Unknown [id number] 2.16.840.1.646289.3.579.2. 593 1995 Unknown [id number] 2.16.840.1.677515.3.579.2. 593 1995 Unknown [id number] 2.16.840.1.383138.3.579.2. 593 1995 Unknown [id number] 2.16.840.1.056769.3.579.2. 727 1995 Unknown [id number] 2.16840.1.444728.3.579.2. 727 1995 Unknown [id number] 2.16840.1.234801.3.579.2. 727 1995 Unknown [id number] 2.16840.1.551095.3.579.2. 1259 1995 Unknown [id number] 2.16840.1.590277.3.579.2. 1259 1995 Unknown [id number] 2.16840.1.589673.3.579.2. 1259 1959 Self-pay [id number] 1959 Unknown [id number] 2.16840.1.854410.19 1959 Unknown [id number] Private Health Insurance [facility] [place] [id number] Unknown [id number] 2.16840.1.482450.3.579.2. 593 Unknown [id number] 2.16.840.1.344601.3.579.2. 531 Unknown [id number] 2.16840.1.524549.3.579.2. 531 Social History Date Type Detail Facility Unknown if ever smoked [facility] Sex Assigned At [facility] Start: 06-15-2023 Tobacco smoking status NHIS Never smoked tobacco (finding) [facility] Start: 1995 Sex Assigned At Female F [facility] Tobacco smoking status No Smoking Status Entered [facility] Tobacco smoking status NHIS Tobacco smoking consumption unknown [facility] Start: 1995 Sex assigned at Not on file N [facility] Functional Status Date Assessment Result Facility 04-27-2024 Functional Status N/A [facility] Clinical Notes 07-04-2020 to 05-13-2024 CLARITA Hubbard - 05/13/2024 9:40 AM EST Note Date & Type Note Facility 05-13-2024 History of Presen t illness Narrative Reason for Appointment: Patient ID: Malini Coon is a 28 y.o. female who presents for Breast Problem Patient presents today for Acute Visit. Right nipple discharge on and off for 2 months MEDICATIONS Current Outpatient Medications Medication Instructions lamoTRIgine (LaMICtal) 100 MG tablet ALLERGIES Allergies Allergen Reactions Penicillin G Rash PROBLEMS Active Ambulatory Problems Diagnosis Date Noted No Active Ambulatory Problems Resolved Ambulatory Problems Diagnosis Date Noted No Resolved Ambulatory Problems Past Medical History: Diagnosis Date Mixed bipolar affective disorder (HCC) (CMS/HCC) HISTORY PAST MEDICAL HISTORY SOCIAL HISTORY Past Medical History: Diagnosis Date Mixed bipolar affective disorder (HCC) (CMS/HCC) Social History Tobacco Use Smoking status: Not on file Smokeless tobacco: Not on file Substance Use Topics Alcohol use: Not on file Drug use: Not on file FAMILY HISTORY No family history on file. SURGICAL HISTORY History reviewed. No pertinent surgical history. REVIEW OF SYSTEMS Review of Systems: Review of Systems All other systems reviewed and are negative. OBJECTIVE Objective: Physical Exam Constitutional: Appearance: Normal appearance. She is well-developed. Cardiovascular: Rate and Rhythm: Normal rate and regular rhythm. Pulmonary: Effort: Pulmonary effort is normal. Breath sounds: Normal breath sounds. Abdominal: General: Bowel sounds are normal. There is no distension. Palpations: Abdomen is soft. Tenderness: There is no abdominal tenderness. There is no guarding or rebound. Musculoskeletal: General: No swelling. Normal range of motion. Right lower leg: No edema. Left lower leg: No edema. Neurological: Mental Status: She is alert and oriented to person, place, and time. Skin: General: Skin is warm and dry. Psychiatric: Mood and Affect: Mood normal. Behavior: Behavior normal. Vitals and nursing note reviewed. Exam conducted with a operations manager assistant present. Vitals: Estimated body mass index is 25.44 kg/m as calculated from the following: Height as of 08/01/22: 5' 8.5 . Weight as of this encounter: 169 lb 12.8 oz. BP: 100/60 Patient's last menstrual period was 05/01/2024. ASSESSMENT & PLAN ICD-10-CM 1. Breast discharge N64.52 Patient presents today for right nipple discharge and occasional breast pain, no nipple drainage today. On exam she also states she has had increased uterine bleeding and weight gain for past several months. We will place pt on keflex, order labs with right breat US and pelvic US for bleeding. She is not currently taking birthcontol as had vasectomy Patient to follow up with Dr. Skinner for results of Ultrasound and lbs. Patient will schedule follow up appointment Documented by Lisa Walker LPN on behalf of: CLARITA Hubbard documented in this encounter [facility] 04-27-2024 Evaluation + Plan note Extrac helen from: Title:ED Note Author:Angelica Virk DO Date :04/27/24 Acute headache (R51.9: Heada nabeel, unspecified) Generalized weakness (R53.1: Weakness) Hypokalemia (E87.6: Hypokalemia) Orders: dexamethasone, 10 mg = 1 mL, Injection, IV Push, Once, Stop date 04/27/24 2:17:00 EST, STAT, Start date 04/27/24 2:17:00 EST, Administer over no less than one minute, 04/27/24 2:17:00 EST diphenhydrAMINE, 25 mg = 0.5 mL, Injection, IV Push, Once, Stop date 04/27/24 1:11:00 EST, STAT, Start date 04/27/24 1:11:00 EST, 04/27/24 1:11:00 EST ketorolac, 30 mg = 1 mL, Injection, IV Push, Once, Stop date 04/27/24 2:17:00 EST, STAT, Start date 04/27/24 2:17:00 EST, 04/27/24 2:17:00 EST magnesium sulfate + Generic Diluent 50 mL, 2 gram = 50 mL, IV Piggyback, Once, Stop date 04/27/24 2:17:00 EST, STAT, Start date 04/27/24 2:17:00 EST, 50 mL/hr, Infuse over 1 hour(s), 04/27/24 2:17:00 EST metoclopramide, 10 mg = 2 mL, Injection, IV Push, Once, Stop date 04/27/24 1:10:00 EST, STAT, Start date 04/27/24 1:10:00 EST, 04/27/24 1:10:00 EST naproxen, 500 mg = 1 tab(s), Oral, BID, PRN for pain, # 20 tab(s), Refills(s) 0, Pharmacy: [facility]/pharmacy #[id number], 167, cm, 04/27/24 1:10:00 EST, Height/Length Dosing, 77.5, kg, 04/27/24 1:10:00 EST, Weight Dosing ondansetron, 4 mg = 1 tab(s), Oral, q6hr, # 12 tab(s), Refills(s) 0, Pharmacy: [facility]/pharmacy #[id number], 167, cm, 04/27/24 1:10:00 EST, Height/Length Dosing, 77.5, kg, 04/27/24 1:10:00 EST, Weight Dosing potassium chloride, 40 mEq = 2 tab(s), Tab-ER, Oral, Once, Stop date 04/27/24 1:55:00 EST, STAT, Start date 04/27/24 1:55:00 EST, 04/27/24 1:55:00 EST Sodium Chloride 0.9% intravenous solution, 1,000 mL, Soln-IV, IV, Once, Stop date 04/27/24 1:09:00 EST, STAT, Start date 04/27/24 1:09:00 EST, Infuse over 61, minute(s) Basic Metabolic Panel Beta hCG Qual CBC w/ Auto Diff CT Head or Brain w/o Contrast ECG 12 Lead Adult ED Cardiac Monitoring eGFR Magnesium Level Oxygen Saturation Oxygen Therapy PT & PTT Saline Lock Insert Troponin 0 Hr. Troponin 1 Hr. XR Chest Single View [facility] 02-04-2025 Hospital Discharge instructions Patient Education 04/27/2024 03:40:11 Weakness, Igzl-[id number]-[id number] Weakness Weakness is a lack of strength. You may feel weak all over your body (generalized), or you may feelweak in one part of your body (focal). There are many potential causes of weakness. Sometimes, the cause of your weakness may not be known. Some causes of weakness can be serious, so it is important to see your doctor. Follow these instructions at home: Activity Rest as needed. Try to get enough sleep. Most adults need 7 8 hours of sleep each night. Talk to your doctor about how much sleep you need. Do exercises, such as arm curls and leg raises, for 30 minutes at least 2 days a week or as told byyour doctor. Think about working with a physical therapist or operational trainer to help you get stronger. General instructions Take ggof-yhs-uktjlly and prescription medicines only as told by your doctor. Eat a healthy, well-balanced diet. This includes: ?Proteins to build muscles, such as lean meats and fish. ?Fresh fruits and vegetables. ?Carbohydrates to boost energy, such as whole grains. Drink enough fluid to keep your pee (urine) pale yellow. Keep all follow-up visits. Contact a doctor if: Your weakness does not get better or it gets worse. Your weakness affects your ability to: ?Think clearly. ?Do your normal daily activities. Get help right away if: You have sudden weakness on one side of your face or body. You have chest pain. You have trouble breathing or shortness of breath. You have problems with how you see (vision). You have trouble talking or swallowing. You have trouble standing or walking. You are light-headed or faint. These symptoms may be an emergency. Get help right away. Call 911. Do not wait to see if the symptoms will go away. Do not drive yourself to the hospital. Summary Weakness is a lack of strength. You may feel weak all over your body or just in one part of your body. There are many potential causes of weakness. Sometimes, the cause of your weakness may not be known. Rest as needed, and try to get enough sleep. Most adults need 7 8 hours of sleep each night. Eat a healthy, well-balanced diet. This information is not intended to replace advice given to you by your health care provider. Make sure you discuss any questions you have with your health care provider. Document Revised: 02/10/2022 Document Reviewed: 02/10/2022 [employer] Patient Education 2023 [employer]. 04/27/2024 03:40:11 Hypokalemia Hypokalemia Hypokalemia means that the amount of potassium in the blood is lower than normal. Potassium is a mineral (electrolyte) that helps regulate the amount of fluid in the body. It also stimulates muscle tightening (contraction) and helps nerves work properly. Normally, most of the body's potassium is inside cells, and only a very small amount is in the blood. Because the amount in the blood is so small, minor changes to potassium levels in the blood can be life-threatening. What are the causes? This condition may be caused by: Antibiotic medicine. Diarrhea or vomiting. Taking too much of a medicine that helps you have a bowel movement (laxative)can cause diarrhea and lead to hypokalemia. Chronic kidney disease (CKD). Medicines that help the body get rid of excess fluid (diuretics). Eating disorders, such as anorexia or bulimia. Low magnesium levels in the body. Sweating a lot. What are the signs or symptoms? Symptoms of this condition include: Weakness. Constipation. Fatigue. Muscle cramps. Mental confusion. Skipped heartbeats or irregular heartbeat (palpitations). Tingling or numbness. How is this diagnosed? This condition is diagnosed with a blood test. How is this treated? This condition may be treated by: Taking potassium supplements. Adjusting the medicines that you take. Eating more foods that contain a lot of potassium. If your potassium level is very low, you may need to get potassium through an IV and be monitored in the hospital. Follow these instructions at home: Eating and drinking Eat a healthy diet. A healthy diet includes fresh fruits and vegetables, whole grains, healthy fats, and lean proteins. If told, eat more foods that contain a lot of potassium. These include: ?Nuts, such as peanuts and pistachios. ?Seeds, such as sunflower seeds and pumpkin seeds. ?Peas, lentils, and marie beans. ?Whole grain and bran cereals and breads. ?Fresh fruits and vegetables, such as apricots, avocado, bananas, cantaloupe, kiwi, oranges, tomatoes, asparagus, and potatoes. ?Juices, such as orange, tomato, and prune. ?Lean meats, including fish. ?Milk and milk products, such as yogurt. General instructions Take hrke-txe-cvqhknz and prescription medicines only as told by your health care provider. This includes vitamins, natural food products, and supplements. Keep all follow-up visits. This is important. Contact a health care provider if: You have weakness that gets worse. You feel your heart pounding or racing. You vomit. You have diarrhea. You have diabetes and you have trouble keeping your blood sugar in your target range. Get help right away if: You have chest pain. You have shortness of breath. You have vomiting or diarrhea that lasts for more than 2 days. You faint. These symptoms may be an emergency. Get help right away. Call 911. Do not wait to see if the symptoms will go away. Do not drive yourself to the hospital. Summary Hypokalemia means that the amount of potassium in the blood is lower than normal. This condition is diagnosed with a blood test. Hypokalemia may be treated by taking potassium supplements, adjusting the medicines that you take, or eating more foods that are high in potassium. If your potassium level is very low, you may need to get potassium through an IV and be monitored in the hospital. This information is not intended to replace advice given to you by your health care provider. Make sure you discuss any questions you have with your health care provider. Document Revised: 11/22/2021 Document Reviewed: 11/22/2021 [employer] Patient Education 2023 [employer] 04/27/2024 03:40:11 General Headache Without Cause, Wllj-bw-Tmtm General Headache Without Cause A headache is pain or discomfort you feel around the head or neck area. There are many causes and types of headaches. In some cases, the cause may not be found. Follow these instructions at home: Watch your condition for any changes. Let your doctor know about them. Take these steps to help with your condition: Managing pain Take whtr-cno-eojhyoo and prescription medicines only as told by your doctor. This includes medicines for pain that are taken by mouth or put on the skin. Lie down in a dark, quiet room when you have a headache. If told, put ice on your head and neck area: ?Put ice in a plastic bag. ?Place a towel between your skin and the bag. ?Leave the ice on for 20 minutes, 2 3 times per day. ?Take off the ice if your skin turns bright red. This is very important. If you cannot feel pain, heat, or cold, you have a greater risk of damage to the area. If told, put heat on the affected area. Use the heat source that your doctor recommends, such as a moist heat pack or a heating pad. ? Place a towel between your skin and the heat source. ?Leave the heat on for 20 30 minutes. ?Take off the heat if your skin turns bright red. This is very important. If you cannot feel pain, heat, or cold, you have a greater risk of getting burned. Keep lights dim if bright lights bother you or make your headaches worse. Eating and drinking Eat meals on a regular schedule. If you drink alcohol: ?Limit how much you have to: ?0 1 drink a day for women who are not . ? 0 2 drinks a day for men. ?Know how much alcohol is in a drink. In the [place] one drink equals one 12 oz bottle of beer (355 mL), one 5 oz glass of wine (148 mL), or one 1 oz glass of hard liquor (44 mL). Stop drinking caffeine, or drink less caffeine. General instructions Keep a journal to find out if certain things bring on headaches. For example, write down: ?What you eat and drink. ?How much sleep you get. ?Any change to your diet or medicines. Get a massage or try other ways to relax. Limit stress. Sit up straight. Do not tighten (tense) your muscles. Do not smoke or use any products that contain nicotine or tobacco. If you need help quitting, ask your doctor. Exercise regularly as told by your doctor. Get enough sleep. This often means 7 9 hours of sleep each night. Keep all follow-up visits. This is important. Contact a doctor if: Medicine does not help your symptoms. You have a headache that feels different than the other headaches. You feel like you may vomit (nauseous) or you vomit. You have a fever. Get help right away if: Your headache: ?Gets very bad quickly. ?Gets worse after a lot of physical activity. You have any of these symptoms: ?You continue to vomit. ?A stiff neck. ?Trouble seeing. ?Your eye or ear hurts. ?Trouble speaking. ?Weak muscles or you lose muscle control. ?You lose your balance or have trouble walking. You feel like you will pass out (faint) or you pass out. You are mixed up (confused). You have a seizure. These symptoms may be an emergency. Get help right away. Call your local emergency services (911 int [place] Do not wait to see if the symptoms will go away. Do not drive yourself to the hospital. Summary A headache is pain or discomfort that is felt around the head or neck area. There are many causes and types of headaches. In some cases, the cause may not be found. Keep a journal to help find out what causes your headaches. Watch your condition for any changes. Let your doctor know about them. Contact a doctor if you have a headache that is different from usual, or if medicine does not help your headache. Get help right away if your headache gets very bad, you throw up, you have trouble seeing, you loseyour balance, or you have a seizure. This information is not intended to replace advice given to you by your health care provider. Make sure you discuss any questions you have with your health care provider. Document Revised: 08/08/2021 Document Reviewed: 08/08/2021 [employer] Patient Education 2023 [employer]. Follow Up Care 04/27/2024 01:06:16 With:TONY ROBERSON Address: [address] [place] [address] Business (1) When:04/30/2024 Comments:You can use the naproxen, Zofran as prescribed as needed for pain and nausea. Please follow-up withyour primary care doctor for further evaluation management. Please return to the ED for any new or worsening symptoms. [facility] 02-04-2025 NoteED Patient Education Note Gastroenterology Hypokalemia Hypokalemia means that the amount of potassium in the blood is lower than normal. Potassium is a mineral (electrolyte) that helps regulate the amount of fluid in the body. It also stimulates muscle tightening (contraction) and helps nerves work properly. Normally, most of the body's potassium is inside cells, and only a very small amount is in the blood. Because the amount in the blood is so small, minor changes to potassium levels in the blood can be life-threatening. What are the causes? This condition may be caused by: ??? Antibiotic medicine. ??? Diarrhea or vomiting. Taking too much of a medicine that helps you have a bowel movement (laxative) can cause diarrhea and lead to hypokalemia. ??? Chronic kidney disease (CKD). ??? Medicines that help the body get rid of excess fluid (diuretics). ??? Eating disorders, such as anorexia or bulimia. ??? Low magnesium levels in the body. ??? Sweating a lot. What are the signs or symptoms? Symptoms of this condition include: ??? Weakness. ??? Constipation. ??? Fatigue. ??? Muscle cramps. ??? Mental confusion. ??? Skipped heartbeats or irregular heartbeat (palpitations). ??? Tingling or numbness. How is this diagnosed? This condition is diagnosed with a blood test. How is this treated? This condition may be treated by: ??? Taking potassium supplements. ??? Adjusting the medicines that you take. ??? Eating more foods that contain a lot of potassium. If your potassium level is very low, you may need to get potassium through an IV and be monitored in the hospital. Follow these instructions at home: Eating and drinking ??? Eat a healthy diet. A healthy diet includes fresh fruits and vegetables, whole grains, healthy fats, and lean proteins. ??? If told, eat more foods that contain a lot of potassium. These include: ? Nuts, such as peanuts and pistachios. ? Seeds, such as sunflower seeds and pumpkin seeds. ? Peas, lentils, and marie beans. ? Whole grain and bran cereals and breads. ? Fresh fruits and vegetables, such as apricots, avocado, bananas, cantaloupe, kiwi, oranges, tomatoes, asparagus, and potatoes. ? Juices, such as orange, tomato, and prune. ? Lean meats, including fish. ? Milk and milk products, such as yogurt. General instructions ??? Take lqce-pix-homhque and prescription medicines only as told by your health care provider. This includes vitamins, natural food products, and supplements. ??? Keep all follow-up visits. This is important. Contact a health care provider if: ??? You have weakness that gets worse. ??? You feel your heart pounding or racing. ??? You vomit. ??? You have diarrhea. ??? You have diabetes and you have trouble keeping your blood sugar in your target range. Get help right away if: ??? You have chest pain. ??? You have shortness of breath. ??? You have vomiting or diarrhea that lasts for more than 2 days. ??? You faint. These symptoms may be an emergency. Get help right away. Call 911. ??? Do not wait to see if the symptoms will go away. ??? Do not drive yourself to the hospital. Summary ??? Hypokalemia means that the amount of potassium in the blood is lower than normal. ??? This condition is diagnosed with a blood test. ??? Hypokalemia may be treated by taking potassium supplements, adjusting the medicines that you take, or eating more foods that are high in potassium. ??? If your potassium level is very low, you may need to get potassium through an IV and be monitored in the hospital. This information is not intended to replace advice given to you by your health care provider. Make sure you discuss any questions you have with your health care provider. Document Revised: 11/22/2021 Document Reviewed: 11/22/2021 [employer] Patient Education ? 2023 [employer] Neurology Weakness Weakness is a lack of strength. You may feel weak all over your body (generalized), or you may feelweak in one part of your body (focal). There are many potential causes of weakness. Sometimes, the cause of your weakness may not be known. Some causes of weakness can be serious, so it is important to see your doctor. Follow these instructions at home: Activity ??? Rest as needed. ??? Try to get enough sleep. Most adults need 7?8 hours of sleep each night. Talk to your doctor about how much sleep you need. ??? Do exercises, such as arm curls and leg raises, for 30 minutes at least 2 days a week or as told by your doctor. ??? Think about working with a physical therapist or operational trainer to help you get stronger. General instructions ??? Take vour-mhz-fepsjqi and prescription medicines only as told by your doctor. ??? Eat a healthy, well-balanced diet. This includes: ? Proteins to build muscles, such as lean meats and fish. ? Fresh fruits and vegetables. ? Carbohydrates to boost energy (more content not included)...[facility]10-18-2023 Evaluation note* Encounter Date Diagnosis Assessment Notes Treatment Notes Treatment Clinical Notes Dec, Syncope and collapse (ICD-10 - R55) Ms Coon is a 27 year old female with PMH significant for generalized anxiety who presents to the office as a referral from Dr. Tony Roberson for syncope and collapse. Assessment: Syncope-possibly vasovagal.Palpitations Plan: -Echo scheduled for tomorrow to evaluate valvular function as well as LV function.-2-week event monitor to rule out cardiac arrhythmias.-Tilt table testing to evaluate for orthostasis and cardioinhibitory syncope-Will follow-up in 4 weeks. [facility] Other 10-18-2023 Evaluation note* Encounter Date Diagnosis Assessment Notes Treatment Notes Treatment Clinical Notes Dec, Adult attention deficit disorder (ICD-10 - F98.8) [facility] Other 10-06-2023 Evaluation note* Encounter Date Diagnosis Assessment Notes Treatment Notes Treatment Clinical Notes Dec, Syncope and collapse (ICD-10 - R55) Malini denies recent illness and symptoms c/w vertigo. Doubts possiblity of dehydration. 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 Malini agrees to referral to Cardiology and echo. She is feeling ok today, just mildly tired from being up in the night. Malini understands to go to ER/call EMS if symptoms recur. [facility] Other 09-14-2023 Evaluation note* Encounter Date Diagnosis Assessment Notes Treatment Notes Treatment Clinical Notes Nov, Adult attention deficit disorder (ICD-10 - F98.8) [facility] Other 08-08-2023 Evaluation note* Encounter Date Diagnosis Assessment Notes Treatment Notes Treatment Clinical Notes Oct, Poison herminio dermatitis (ICD-10 - L23.7) Take medications as directed. Complete all doses. Wash all belongings that came in contact with plant oils. May continue to use Calamine lotion. Patient verbalized understanding and agreement with treatment plan. [facility] Other 07-13-2023 Evaluation note* Encounter Date Diagnosis Assessment Notes Treatment Notes Treatment Clinical Notes Sep, Anxiety (ICD-10 - F41.9) notes adverse side effects w ssris and buspar. d/c medication. Sep, Adult attention deficit disorder (ICD-10 - F98.8) Watch for possible use of med for alertness rather than concentration; consider attempt at reduction after a few months. Call if problem. [facility] Other 05-04-2023 Evaluation note* Encounter Date Diagnosis Assessment Notes Treatment Notes Treatment Clinical Notes July, Persistent depressive disorder (ICD-10 - F34.1) [facility] Other 04-10-2023 Evaluation note* Encounter Date Diagnosis Assessment Notes Treatment Notes Treatment Clinical Notes Jun, Anxiety (ICD-10 - F41.9) Stop Zoloft start BuSpar. Patient does seem to be in normal mood presently question if medication needed at all. She will trial this and see if it is helpful . if she has significant side effects etc. she will likely just discontinue medication. [facility] Other 03-06-2023 Evaluation note* Encounter Date Diagnosis [...] care provider if no improvement of symptoms. [facility] Other 02-01-2023 Evaluation note* Encounter Date Diagnosis [...] to return for annual unless needed sooner. [facility] Other 12-14-2022 Evaluation note* Encounter Date Diagnosis Assessment Notes Treatment Notes Treatment Clinical Notes Feb, (ICD-10 - Z33.1) Pt doing well with complaints of being tired, d/t . Pt desires induction- consents signed. Pt will discuss with induction 03/07/22 or 03/12/22- report to [facility] at 0500. Pt verbalizes frequent movement. labor precautions given, fkc tid. Pt to return in 6 weeks for scheduled 6 week . Documented on behalf of Joe Skinner D.O. by Linsey Riggs LPN [facility] Other 12-06-2022 Evaluation note* Encounter Date Diagnosis Assessment Notes Treatment Notes Treatment Clinical Notes Feb, (ICD-10 - Z33.1) [facility] Other 11-29-2022 Evaluation note* Encounter Date Diagnosis Assessment Notes Treatment Notes Treatment Clinical Notes Jan, (ICD-10 - Z33.1) Pt doing well with complaints of being tired, d/t . Pt verbalizes frequent movement. labor precautions given, fkc tid. Pt to return in 1 week for scheduled OB appt. ABDIFATAH Arnold [facility] Other 11-22-2022 Evaluation note* Encounter Date Diagnosis Assessment Notes Treatment Notes Treatment Clinical Notes Jan, (ICD-10 - Z33.1) Jan, STD exposure (ICD-10 - Z20.2) Jan, Vaginal discharge (ICD-10 - N89.8) [facility] Other 01-06-2022 [...] Frazier LPN, acting as scribe for Dr. Kamryn Yuan. Signature: Loyda Frazier LPN The documentation recorded by the scribe accurately reflects the service(s) I personally performed and the decisions I made. Signature: Kamryn Yuan DO [facility] Other 12-06-2021 [...] during in third trimester (ICD-10 - O26.03) [facility] Other 11-29-2021 [...] during in third trimester (ICD-10 - O26.03) [facility] Other 11-22-2021 [...] 38 weeks gestation of (ICD-10 - Z3A.38) [facility] Other 11-15-2021 Evaluation note* Encounter Date Diagnosis Assessment Notes Treatment Notes Treatment Clinical Notes Jan, 37 weeks gestation of (ICD-10 - Z3A.37) Jan, Rh negative status during (ICD-10 - O09.899) Jan, Obesity affecting in third trimester (ICD-10 - O99.213) Jan, related conditions, unspecified, third trimester (ICD-10 - O26.93) Jan, Excessive weight gain during in third trimester (ICD-10 - O26.03) [facility] Other 11-08-2021 Evaluation note* Encounter Date Diagnosis Assessment Notes Treatment Notes Treatment Clinical Notes Jan, 36 weeks gestation of (ICD-10 - Z3A.36) Jan, Rh negative status during (ICD-10 - O09.899) Jan, Obesity affecting in third trimester (ICD-10 - O99.213) Jan, related conditions, unspecified, third trimester (ICD-10 - O26.93) Jan, Excessive weight gain during in third trimester (ICD-10 - O26.03) [facility] Other 11-03-2021 Evaluation note* Encounter Date Diagnosis Assessment Notes Treatment Notes Treatment Clinical Notes Jan, 36 weeks gestation of (ICD-10 - Z3A.36) Jan, Rh negative status during (ICD-10 - O09.899) Jan, Obesity affecting in third trimester (ICD-10 - O99.213) [facility] Other 11-03-2021 Evaluation note* Encounter Date Diagnosis Assessment Notes Treatment Notes Treatment Clinical Notes Jan, related conditions, unspecified, third trimester (ICD-10 - O26.93) Jan, Excessive weight gain during in third trimester (ICD-10 - O26.03) [facility] Other 10-25-2021 Evaluation note* Encounter Date Diagnosis Assessment Notes Treatment Notes Treatment Clinical Notes Dec, 34 weeks gestation of (ICD-10 - Z3A.34) Dec, Rh negative status during (ICD-10 - O09.899) [facility] Other 10-11-2021 Evaluation note* Encounter Date Diagnosis Assessment Notes Treatment Notes Treatment Clinical Notes Dec, 32 weeks gestation of (ICD-10 - Z3A.32) Dec, Rh negative status during (ICD-10 - O09.899) [facility] Other 09-27-2021 Evaluation note* Encounter Date Diagnosis Assessment Notes Treatment Notes Treatment Clinical Notes Nov, 30 weeks gestation of (ICD-10 - Z3A.30) Nov, Rh negative status during (ICD-10 - O09.899) [facility] Other 09-13-2021 Evaluation note* Encounter Date Diagnosis Assessment Notes Treatment Notes Treatment Clinical Notes Nov, Rh negative status during (ICD-10 - O09.899) Nov, 28 weeks gestation of (ICD-10 - Z3A.28) [facility] Other 09-07-2021 Evaluation note* Encounter Date Diagnosis Assessment Notes Treatment Notes Treatment Clinical Notes Nov, Rh negative status during (ICD-10 - O09.899) [facility] Other 08-16-2021 Evaluation note* Encounter Date Diagnosis Assessment Notes Treatment Notes Treatment Clinical Notes Oct, 24 weeks gestation of (ICD-10 - Z3A.24) Oct, Rh negative status during (ICD-10 - O09.899) [facility] Other 07-19-2021 Evaluation note* Encounter Date Diagnosis Assessment Notes Treatment Notes Treatment Clinical Notes Sep, related conditions, unspecified, second trimester (ICD-10 - O26.92) [facility] Other 07-19-2021 Evaluation note* Encounter Date Diagnosis Assessment Notes Treatment Notes Treatment Clinical Notes Sep, 20 weeks gestation of (ICD-10 - Z3A.20) [facility] Other 06-14-2021 Evaluation note* Encounter Date Diagnosis Assessment Notes Treatment Notes Treatment Clinical Notes Aug, 15 weeks gestation of (ICD-10 - Z3A.15) Aug, Encounter for care of first , antepartum, first trimester (ICD-10 - Z34.01) [facility] Other 05-21-2021 Evaluation note* Encounter Date Diagnosis Assessment Notes Treatment Notes Treatment Clinical Notes July, Other specified related conditions, first trimester (ICD-10 - O26.891) July, 12 weeks gestation of (ICD-10 - Z3A.12) [facility] Other 04-13-2021 Evaluation note* Encounter Date Diagnosis Assessment Notes Treatment Notes Treatment Clinical Notes Jun, Encounter for care of first , antepartum, first trimester (ICD-10 - Z34.01) [facility] Other evaluation noteNo [facility]* Diagnosis Onset Date Resolution Status Fall noneactive Contusion of right shoulder noneactive [facility] Work Phone: Evaluation note* Diagnosis Onset Date Resolution Status Fall noneactive Contusion of right shoulder noneactive Sore throat noneactive [facility] Work Phone: Evaluation noteNo assessment information available [facility] Work Phone: Evaluation note* Diagnosis Breast discharge Other sign and symptom in breast Menorrhagia with regular cycle Nipple discharge Other sign and symptom in breast documented in this encounter [facility] Narrative - Reported* Type Description Date Medical History Anxiety Medical History Anemia Medical History Heartburn in Medical History Dyspareunia Hospitalization History no [facility] ([facility])History general Narrative - Reported* Type Description Date Medical History Anemia Medical History Anxiety [facility] Other Hospital course Narrative No data available for this section [facility] Progress note No data available for this section 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 EKG and echo pending. Diagnosis 1 Syncope and collapse (R55) Referral Organization [facility] on[facility] Referring Provider First Name Tony Referring Provider Last Name Karol Referring Provider Specialty Family [facility] cine Referred Organization [facility] Cardiology Referred Provider Maegan Crowder Referred Address [address] [place] [address],[address],[id number] Referred Provider Specialty Cardiovascul ar Disease Referral Priority Routine General Notes Bela Rivrea 12:56:59 PM >received today,sent P2P pedning testing Reason *FU 08/02 Last OV, phone note. Had two pregnancies and two healthy babies in the last less than2 years. Depression, anxiety. Hasn't had good results with typical rx's. Diagnosis 1 Persistent depressiv e disorder (F34.1) Referral Organization [facility] onelia Referring Provider First Name Tony Referring Provider Last Name Karol Referring Provider Specialty Family Medi cine Referred Organization [facility] [place] Referred Provider Alivia Dawson Referred Address [address] [place], [place],[address] Referred Provider Specialty Psychiatry Referral Priority Routine General Notes Jessica Dudley 023 09:13:26 AM >Received today and filled form out and fax to [facility] [place] Bela Rivera 07/29/2022 12:33:10 PM >received TE that pt got a new number, send new form to [place] with updated number Clinical Notes Office [phone] Chief Complaint and Reason for Visit Chief Complaint right shoulder injur y from fall Reason for Visit Fall Contusion of right shoulder Chief Complaint right shoulder injur y from fall W19.XXXA Sore throat Reason for Visit Fall Contusion of right shoulder Sore throat Chief Complaint C pelvic pain Additional Source Comments INFORMATION SOURCE (unrecogn ized section and content) DATE CREATED AUTHOR 10/18/2021 [facility] DATE CREATED AUTHOR AUTHOR'S ORGANIZ ATION 08/04/2022 [facility] [place] [facility] DATE CREATED AUTHOR AUTHOR'S ORGANIZ ATION 01/25/2024 [facility] DATE CREATED AUTHOR AUTHOR'S ORGANIZ ATION 04/28/2024 [facility] DATE CREATED AUTHOR AUTHOR'S ORGANIZ ATION 05/15/2024 [facility] EPIC REASON FOR VISIT (unrecogniz ed section and content) Reason Comments Breast Problem Care Teams (unrecognized sec tion and content) Team Status: Active Member Role Status Dates Tony Roberson MD Primary Care Provider Active Team Status: Active Member Role Status Dates Tony Roberson MD Primary Care Provider Active Start: September 15, 2023 Joe Skinner DO Attending Provider Active Start : September 15, 2023 Team Status: Inactive Member Role Status Dates Tony Roberson MD Primary Care Provider Active Start: October 02, 2023 End: October 02, 2023 Joe Skinner DO Attending Provider Active Start : October 02, 2023 End: October 02, 2023 Team Status: Inactive Member Role Status Dates Tony Roberson MD Primary Care Provider Active Start: June 15, 2023 End: June 15, 2023 Arely Lentz APRN Attending Provider Active Start: June 15, 2023 End: June 15, 2023 Team Status: Active Member Role Status Dates Tony Roberson MD Primary Care Provider Active Start: August 04, 2023 Bhumika Licea PA-C Attending Provider Active Start : August 04, 2023 Team Status: Inactive Member Role Status Dates Tony Roberson MD Primary Care Provider Active Start: August 28, 2023 End: August 28, 2023 Debora Curran APRN Attending Provider Active S tart: August 28, 2023 End: August 28, 2023 Project Estimator Relationship Specialty Start Date End Date Tony Roberson MD [address] [place] [address] PCP - General Family Medicine 08/04/23 Project Estimator Relationship Specialty Start Date End Date Tony Roberson MD [address] [place] [address] PCP - General Family Medicine 08/04/23 Goals (unrecognized section and content) Goals may [...] BE BASED ON THE PRIMARY CLINICAL RECORDS. [facility]. provides no warranty or guarantee of the accuracy or completeness of information in this document.
--- NOTE | 2024-05-18 11:42 | US_ITS ---
The [address] [address] Patient Name: JUSTIN COON MRN: [id number] date: 1995 Sex: F Assigned Patient Location: [place] Current Patient Location: [place] Accession/Order Number: [id number] Exam Date: 05/18/2024 13:26 Report Date: 05/18/2024 13:31 At the request of: KAYLIE MARSH Procedure: US pelvis w/ transvaginal COMPLETE PELVIC ULTRASOUND WITH TRANSVAGINAL IMAGING CLINICAL DATA: Heavy menses. LMP 05/01/2024 COMPARISON: None Real-time ultrasound evaluation the pelvis was performed utilizing both a transabdominal and transvaginal approach. TRANSABDOMINAL: Estimated uterine size is approximately 9.6 x 4.1 x 6.0 cm. No focal myometrial abnormalities are visualized. The endometrial lining is estimated at 1 cm. Both ovaries are identified. Small follicles are seen. TRANSVAGINAL: Transvaginal scans were performed to better evaluate the uterus and adnexa. By this approach, no focal myometrial abnormalities are seen. The endometrial lining is estimated at 9 - 10 mm. The ovaries are again visualized. The right measures 2.8 x 1.5 x 1.5 cm. The left ovary measures 3.5 x 2.1 x 2.2 cm. There is documentation of ovarian blood flow. Small follicles are seen. There are no dominant adnexal cysts. There is a small amount of fluid at posterior cul-de-sac. US/US pelvis w/ transvaginal IMPRESSION: NONSPECIFIC FREE PELVIC FLUID, POTENTIALLY PHYSIOLOGIC. NO DOMINANT ADNEXAL CYSTS OR OTHER ACUTE FINDINGS. Impression dictated by: Linsey Nayak M.D.05/18/2024 1:31 PM Dictation Location: [place] [address] Electronically authenticated by: [id number] Y Date: 05/18/2024 13:31
[2024-05-18 11:55] LABS: Basophils Percent Auto 0.5 % (0.2-2.0); Eosinophils Absolute Auto 0.1 10^3/uL (0.0-0.7); Eosinophils Percent Auto 1.5 % (0.9-7.0); Hematocrit 37.5 % (36.0-48.0); Hemoglobin 12.3 g/dL (12.0-16.0); Immature Granulocytes Abs Auto 0.01 10^3/uL (0.00-0.03); Immature Granulocytes Pct Auto 0.2 % (0.0-0.5); Lymphocytes Percent Auto 33.2 % (20.5-60.0); Mean Corpuscular HGB Conc 32.8 g/dL (29.9-35.2); Mean Corpuscular Hemoglobin 28.5 pg (26.7-34.0); Mean Platelet Volume 10.7 fL (9.5-13.5); Monocytes Absolute Auto 0.4 10^3/uL (0.3-0.8); Monocytes Percent Auto 7.2 % (1.7-12.0); Neutrophils Absolute Auto 3.5 10^3/uL (1.4-6.5); Neutrophils Percent Auto 57.4 % (43.0-75.0); Platelet Count 290 10^3/uL (150-450); Red Blood Count 4.31 10^6/uL (4.20-5.40); Red Cell Distribution Width 12.3 % (11.0-15.0); White Blood Count 6.2 10^3/uL (4.0-11.0)
[2024-05-18 12:06] LABS: INR 1.14; Partial Thromboplastin Time 32.3 sec (22.3-36.2); Prothrombin Time 11.9 sec (9.0-11.6)
[2024-05-18 12:11] LABS: Estimated Average Glucose 94 mg/dL; Glycohemoglobin A1C 4.9 % (4.5-6.2)
[2024-05-18 12:51] LABS: Free T4 0.88 ng/dL (0.76-1.46)
[2024-05-18 12:56] LABS: Thyroid Stimulating Hormone 1.154 uIU/mL (0.358-3.740)
[2024-05-18 13:00] LABS: HCG Quantitative <1 mIU/mL
== END 2024-05-18 11:11 | disposition home or self-care (01) ==
LOC: US 11:12
PROVIDERS: PCP Family Medicine; Visit Provider Physician Assistant
DX: N92.0 Excessive and frequent menstruation with regular cycle (principal)
CPT/HCPCS: 36415; 76830; 76856; 83036; 84439; 84443; 84702; 85025; 85610; 85730